=== PATIENT | female | born 1970 | race Caucasian/White ===

== ENCOUNTER 2021-03-11 10:28 | Inpatient (IN) | payer OTHER ==
[~2021-03-11] VITALS: Ht 157.5 cm; Wt 63.4 kg
[2021-03-11] MEDS ORDERED: Ventolin/Prove6.7 GM INH (11:58)
[2021-03-11] MEDS ORDERED: PROMETHAZINE-C473 ML (11:58)
[2021-03-11] MEDS ORDERED: BUPR150ER PO (11:59)
[2021-03-11] MEDS ORDERED: Prednisone10 MG PO (11:59)
[2021-03-11] MEDS ORDERED: LISI20 PO (12:00)
[2021-03-11] MEDS ORDERED: FENOFIBRATE145 MG PO (12:00)
[2021-03-11 12:06] LABS: Hematocrit 41.3 % (33.0-51.0); Hemoglobin 13.9 g/dL (11.5-16.0); Mean Corpuscular HGB 30.8 pg (26.0-34.0); Mean Corpuscular HGB Conc 33.7 g/dL (31.5-36.5); Mean Corpuscular Volume 91 fL (80-100); Mean Platelet Volume 9.5 fL (9.1-12.4); Platelet Count 373 K/mm3 (150-400); RDW Coefficient Variation 13.2 % (11.7-14.2); RDW Standard Deviation 44.4 fL (35.1-46.3); Red Blood Cell Count 4.52 M/mm3 (3.80-5.20); White Blood Cell Count 5.76 K/mm3 (4.00-11.30)
[2021-03-11 12:20] LABS: PCO2 Arterial 35.9 mmHg (35-45); PO2 Arterial 67.3 mmHg (80-100)
[2021-03-11 12:24] LABS: Alanine Aminotransfer (ALT/SGP 155 U/L (12-78); Albumin/Globulin Ratio 0.6 (0.8-1.8); Alk Phos 95 U/L (50-136); Anion Gap 8 mmol/L (6-16); Aspartate Aminotrans (AST/SGOT 143 U/L (12-37); Bilirubin, Total 0.3 mg/dL (0.1-1.0); Blood Urea Nitrogen 20 mg/dL (8-24); Bun/Creatinine Ratio 21.9 (12.0-20.0); CO2, Blood 27 mmol/L (21-32); Calcium, Blood 8.6 mg/dL (8.5-10.1); Chloride, Blood 98 mmol/L (98-108); Creatinine, Blood 0.91 mg/dL (0.40-1.00); Globulin, Blood 4.7 g/dL (2.2-4.0); Glomerular Filtration Rate >60 (60-); Glucose, Blood 116 mg/dL (70-99); Potassium, Blood 4.2 mmol/L (3.5-5.5); Sodium, Blood 133 mmol/L (136-145); Total Protein, Blood 7.7 g/dL (6.4-8.2); Troponin I <0.015 ng/mL (0.000-0.040)
[2021-03-11 12:27] LABS: BASOPHILS PERCENT MAN 0 % (0-2); EOSINOPHILS PERCENT MAN 0 % (0-6); LYMPHOCYTES PERCENT MAN 7 % (21-46); MONOCYTES ABSOLUTE MAN 0.46 K/mm3 (0.16-1.47); MONOCYTES PERCENT MAN 8 % (4-13); NEUTROPHILS ABSOLUTE MAN 4.89 K/mm3 (1.96-9.15); SEG NEUTROPHILS PERCENT MAN 85 % (41-73); TOTAL CELLS COUNTED 100
--- NOTE | 2021-03-11 17:45 | NUR ---
PT ARRIVED IN THE UNIT VIA STRETCHER PT WAS ABLE TO AMBULATE TO TRANSFER INDEPENDENTLY, ON NON REBREATHER MASK UPON ARRIVAL, REPORT RECEIVED FROM GEOVAIN LUJAN. PT ALERT AND ORIENTED X4, VITALS HRR SINUS TACH 110'S, BP SYSTOLIC 130'S, SATS ABOVE 90% ON AIRVO 50L 92%,SOB WITH EXERTION DESATS TO HIGH 80'S RECOVERS QUICK, PT ALSO ADVISED/EDUCATED ABOUT PRONING, PT VERBALIZED UNDERSTANDING. PT USES BEDSIDE COMMODE INDEPENDENTLY WITH NO ISSUES. DENIES ANY PAIN, PT REPORTED DIARRHEA HASNT HAD ANY SINCE TRANSFER, HAS MILD UPSET STOMACH PT REQUESTED SOUP AND CRACKERS FOR DINNER. NO OTHER COMPLAINS REPORTED, DAUGHTER LOYD CALLED AND UPDATED REGARDING PT STATUS. PT ABLE TO MAKE NEEDS KNOWN WILL MONITOR
[2021-03-12 03:51] LABS: BASOPHILS ABSOLUTE AUTO 0.01 K/mm3 (0.00-0.23); BASOPHILS PERCENT AUTO 0 % (0-2); EOSINOPHILS PERCENT AUTO 0 % (0-6); Hematocrit 39.1 % (33.0-51.0); Hemoglobin 12.9 g/dL (11.5-16.0); Mean Corpuscular HGB 30.2 pg (26.0-34.0); Mean Corpuscular Volume 92 fL (80-100); Mean Platelet Volume 9.7 fL (9.1-12.4); Platelet Count 380 K/mm3 (150-400); RDW Coefficient Variation 12.9 % (11.7-14.2); RDW Standard Deviation 43.1 fL (35.1-46.3); Red Blood Cell Count 4.27 M/mm3 (3.80-5.20); White Blood Cell Count 4.93 K/mm3 (4.00-11.30)
[2021-03-12 03:52] LABS: IMMATURE GRAN ABSOLUTE AUTO 0.01 K/mm3 (0.00-0.10); IMMATURE GRAN PERCENT AUTO 0 % (0-1); LYMPHOCYTES ABSOLUTE AUTO 0.61 K/mm3 (0.84-5.20); LYMPHOCYTES PERCENT AUTO 12 % (21-46); MONOCYTES ABSOLUTE AUTO 0.44 K/mm3 (0.16-1.47); MONOCYTES PERCENT AUTO 9 % (4-13); NEUTROPHILS ABSOLUTE AUTO 3.86 K/mm3 (1.96-9.15); NEUTROPHILS PERCENT AUTO 78 % (41-73)
[2021-03-12 04:13] LABS: Anion Gap 10 mmol/L (6-16); Blood Urea Nitrogen 18 mg/dL (8-24); CO2, Blood 25 mmol/L (21-32); Calcium, Blood 8.6 mg/dL (8.5-10.1); Chloride, Blood 98 mmol/L (98-108); Creatinine, Blood 0.78 mg/dL (0.40-1.00); Glomerular Filtration Rate >60 (60-); Glucose, Blood 115 mg/dL (70-99); Potassium, Blood 4.2 mmol/L (3.5-5.5); Sodium, Blood 133 mmol/L (136-145)
--- NOTE | 2021-03-12 06:13 | NUR ---
SHIFT SUMMARY ASSUMED CARE OF PT AT 1900. PT IS A/OX4. HEART SOUNDS REGULAR. PT LUNG SOUNDS ARE ARE VERY TIGHT AT THE BASES WITH CRACKLES AT THE APEX, PT WAS ON AIRVO, 55L/MIN AND WAS TITRATED FROM 90% TO 78%. PT TOLERATES WELL UNTIL SHE HAS COUGHING FITS OR GETS UP TO BSC. PT WILL DESATURATE TO 78% WHEN GOING ONTO BSC. PT SATURATIONS ARE AT96% WHEN PRONING, PT WAS EDUCATED ON PRONING. PT C/O HEARTBURN THIS AM, HOSPITALIST CALLED AT 0600 AND ORDERED TUMS. CALL LIGHT IN REACH, BED IN LOWEST POSITON.
--- NOTE | 2021-03-12 18:31 | NUR ---
PT SUMMARY: PT REMAINS ON AIRVO THROUGHOUT THE SHIFT ON DIFFERENT SETTINGS. PT HAS BEEN DESATTING WITH MINIMAL EXERTION. AROUND LUNCH TIME PT WAS DESATTING TO LOW 80'S SETTING WAS 45L 60% ON AIRVO PT TAKES TIME TO RECOVER WAS PT ON 55L 100% SETTINGS AND PT GOT ANXIOUS WAS TRYING TO PULL OFF NASAL CANNULA. ORDER RECEIVED TO GIVE PT ONE TIME DOSE OF 0.5MG ATIVAN PT WAS THEN ABLE TO CALM DOWN AND RELAX. PT SLEPT FOR MORE THAN 3 HRS. PT THEN CALLED SHE NEEDED TO USE THE BSC PT STARTED HAVING AUDIBLE WHEEZES/STRIDOR PT STATED SHE COULDN'T BREATHE SATS WERE DOWN TO LOW 80'S SETTINGS WAS INCREASED TO 55L 100% RT WAS CALLED AND ASSOCIATE PROFESSOR OF SOCIOLOGY CAME IN TO HELP, THIS RN WAS ABLE TO GIVE ALBUTEROL BREATHING TX THAT WAS THEN EFFECTIVE. PT TOOK AWHILE TO RECOVER ON HER OXYGEN LEVEL. CATHETER WAS ORDERED SO THE PT WONT HAVE TO GET UP OFTEN TO USE BSC TO PREVENT FROM DESATTING. DAUGHTER LOYD WAS CALLED AND MADE AWARE OF THE SITUATION AND FOUND OUT THAT THE PT HAS ACUTE RESPIRATORY AIRWAY DSE THAT INCLUDES ASTHMA WHICH WHAT POSS HAD HAPPENED TO THE PT (ASTHMA ATTACK). RT WAS INFORMED FOR REFERENCE. PT NOW IN BED RESTING, WAS EDUCATED ABOUT IMPORTANCE OF DEEP BREATHING EXERCISES ALBUTEROL TX AT BEDSIDE. WILL MONITOR
--- NOTE | 2021-03-13 06:21 | NUR ---
SHIFT SUMMARY ASSUMED CARE OF PT AT 1900. PT IS A/OX4. HEART SOUNDS REGULAR, LUNG SOUNDS HARE VERY TIGHT AT THE BASES AND CRACKLES T/O. PT WAS ON THE AIRVO AT THE BEGINNING OF SHIFT BUT WAS SWITCHED TO THE CPAP AROUND 0430 DUE TO A COUGHING FIT THAT SHE DID NOT RECOVER FROM. PT TOLERATING CPAP AND REMAINED 95% AND ABOVE THE REST OF THE MORNING. PT WAS GIVEN ATIVAN FOR ANXIETY. CATHETER DRAINING CLEAR YELLOW URINE. CALL LIGHT IN REACH, BED IN LOWEST POSTION.
--- NOTE | 2021-03-13 18:22 | NUR ---
PT SUMMARY: PT REMAINS ON AIRVO 60L 100% ALTERNATING CPAP 16 70% SATTING ABOVE 90%, BP SYSTOLIC 110'S, HR SR/ST 90-110'S, O2 DESATS TO LOW 80'S WITH MINIMAL EXERTION. PT HAS BEEN EXERCISING DEEP BREATHING AND IS ABLE TO MOVE INDEPENDENTLY IN BED. PT REMAINS ON BEDREST, CATHETER DRAINING VIA GRAVITY. COUGH MEDICINES AND ATIVAN GIVEN FOR THE SHIFT AND WAS EFFECTIVE. NO OTHER COMPLAINS REPORTED. BREATHING TX PER RT. PT HAS POOR APPETITE ENSURE GIVEN ON LUNCH TIME. ALERT AND ORIENTED, ABLE TO MAKE NEEDS KNOWN, COMPLIANT WITH CARE. WILL REPORT TO ONCOMING SHIFT
--- NOTE | 2021-03-14 05:41 | NUR ---
SHIFT SUMMARY ASSUMED CARE OF PT AT 1900. PT IS A/OX4. HEART SOUNDS REGULAR, TELE SHOWS SINUS @ 90. LUNG SOUNDS ARE DIMINISHED AT THE BASES WITH CRACKLES T/O. PT USED CPAP MOST OF THE NIGHT. PT WAS MEDICATED WITH ATIVAN FOR AGITATION. PT HAD FREQUENT COUGHING FITS IN WHICH SHE WOULD TAKE OFF HER BIPAP TO COUGH AND REQUEST TO BE ON THE AIRVO. PT SATUTATIONS REMAINED ABOVE 90% BUT DURING HER COUGHING FITS SHE DESATURATES TO 75%.PT CATHETER IS DRAINING CLEAR YELLOW URINE. CALL LIGHT IN REACH, BED IN LOWEST POSITION.
--- NOTE | 2021-03-14 19:24 | NUR ---
SHIFT SUMMARY PT A&Ox4; CALM AND COOPERATIVE WITH CARE. PT RESTING IN BED DURING SHIFT. MOVING IN BED IND. ENCOURAGED PT TO PRONE, MINIMAL PRONING DURING SHIFT. ON CPAP SPO2 >95% CPAP SETTING 12 80% FIO2; PT INTERMITTENTLY USING AIRVO T/O SHIFT ON 60L AND 100%, DESATURATE TO 70-80'S, SLOW RECOVERY. PT DENIES PAIN, NAUSEA AND DIZZINESS. PT RECIEVING DECADRON AND REMDESIVIR. OTHER VSS. NO OTHER ACUTE CHANGES NOTED DURING SHIFT. REPORT GIVEN TO ONCOMING RN.
--- NOTE | 2021-03-15 05:12 | NUR ---
SHIFT SUMMARY ASSUMED CARE OF PT AT 1900. PT IS A/OX4. HEART SOUNDS REGULAR. LUNG SOUNDS HAVE CRACKLES T/O. PT WAS MOSTLY ON AIRVO T/O THE SHIFT UNTIL THIS AM AFTER A COUGHING FIT AND WORE THE CPAP FOR ABOUT AN HOUR. PT PRONED TWICE THE EVENING FOR ABOUT A COUPLE HOURS EACH TIME. PT HAS A NON PRODUCTIVE COUGH MEDICATED PEREMAR. PT HAS A DIANE DRAINING WITH GRAVITY, URINE IS CLEAR AND YELLOW. CALL LIGHT IN REACH, BED IN LOWEST POSTION.
[2021-03-15 10:34] LABS: Base Excess Venous 3.2 mmol/L; Bicarbonate Venous 27.4 mmol/L (24.0-30.0); PCO2 Venous 35.9 mmHg (38-42); PO2 Venous 146 mmHg (38-42); pH Blood Venous 7.48 (7.34-7.37)
--- NOTE | 2021-03-15 18:09 | NUR ---
SHIFT SUMMARY PT A&Ox4, ANXIOUS BUT COOPERATIVE WITH CARE. RESTING IN BED FOR MAJOIRTY OF SHIFT. UP TO CHAIR THIS EVENING. PT ENCOURAGED TO PRONE THIS AM, RESTING SUPINE FOR APPROX 1 HOUR DUIRNG SHIFT. SOB AT REST, INTERMITTENTLY ON AIRVO AT 55L AT 90% FIO2, SPENT MAJOIRTY OF SHIFT ON CPAP 12 FIO2 AT 100%. PT DESATURATES 70-80'S WITH ACTIVITY AND COUGHING EPISODES. SLOW RECOVERY. PT DENIES PAIN, CHEST PAIN, NAUSEA AND DIZZINESS. DIANE PATENT AND DRAINING. OTHER VSS. NO OTHER ACUTE CHANGES NOTED DURING SHIFT. WILL CONTINUE TO MONITOR UNTIL REPORT GIVEN TO ONCOMING RN.
--- NOTE | 2021-03-16 06:05 | NUR ---
SHIFT SUMMARY ASSUMED CARE OF PT AT 1900. HEART SOUNDS REGULAR, TELE SHOWS SINUS TACH @ 107. LUNG SOUNDS HAVE CRACKLES T/O, PT SWITCHED BETWEEN AIRVO AND CPAP T/O THE NIGHT. PT DOES NOT LIKE THE CPAP AND WAS MOSTLY ON THE AIRVO, BUT HAD TO BE PRONING OR ELSE SHE WOULD DESATURATE INTO THE 70'S. PT WILL TAKE OSCAR THE MASK DURING COUGHING FITS AND DESATURATE TO 68%, OR SHE WILL TAKE OF HER AIRVO BEUCAUSE THE AIR IS TO COLD. PT EDUCATED ABOUT HOW THIS IS NOT A SAFE PRACTICE. PT SHOWS SIGNS OF FEELING HOPELESS DUE TO HER FLAT AFFECT. PT ASKED MULTOPL TIMES IF SHE WILL EVERY GET BETTER. PT HAD A DIANE DRAINING WITH GRAVITY. URINE IS CLEAR AND YELLOW. PT WAS MEDICATED FOR COUGH AND WITH ATIVAN FOR HER ANXIETY. CALL LIGHT IN REACH, BED IN LOWEST POSTION.
--- NOTE | 2021-03-16 16:45 | NUR ---
STARTED PRECEDEX DRIP WITH INITIAL DOSE OF 0.4.
--- NOTE | 2021-03-16 17:32 | NUR ---
SHIFT SUMMARY PT A/O X3 AND EXPERIENCES MILD CONFUSION AT TIMES. PT SWITCHED BETWEEN THE AIRVO AND THE CPAP THIS SHIFT AND IT WAS DETERMINED THAT THE AIRVO WAS NOT SUFFICIENT IN MAINTAINING O2 SATURATION LEVELS >90%. ON AIRVO PT WOULD DESAT DOWN TO 68% AT TIMES. IT WAS DETERMINED THAT THE PT IS TO STAY ON CPAP AND MAY POSSIBLY SWITCH TO BIPAP. PT DOES NOT LIKE THE CPAP MASK AND OFTEN WOULD REMOVE IT, RESULTING IN DESATURATION. PT PUT ON A PRECEDEX DRIP FOR SEDATION IN ORDER TO KEEP HER FROM REMOVING HER MASK (SEE EMR). DRIP TITRATED X1 THIS SHIFT (SEE EMR). PT PRONED AFTER RECEIVING SEDATION. VSS. WILL REPORT TO ONCOMING RN.
--- NOTE | 2021-03-17 04:38 | NUR ---
SHIFT SUMMARY PT PRONED AND ON 0.6MCG/KG/HR AT BEGINNING OF SHIFT. APPROPRIATELY SEDATED. ON BIPAP 14/8 90%. LUNG SOUNDS CONTINUE TO BE COARSE T/O. SHIFT PROGRESSED, PT BEGAN TO MOVE IN BED, PULL AT MASK AND AT ONE POINT, UN PRONED HERSELF AND PULLED OFF HER BIPAP. PT HAD BEEN RECEIVING 0.7MCG/KG/HR AND HAD RECEIVED A PRN 1MG ATIVAN DOSE WELL. UPON ARRIVAL TO ROOM, PT SPO2 <75%. WITH THIS EVENT, DR TOÑA TABARES, RECEIVED INSTRUCTION TO INCREASE MAX DOSE FROM 0.7MCGS TO 1.0MCGS. PT IS CURRENTLY ON 0.9MCGS/KG/HR. HR REMAINS 70 T/O ALL TITRATIONS AND MAP >60 WITH MAJORITY OF SBP'S >115. PT HAS BEEN REPOSITIONED PRONE Q2H, ROTATING SIDE PLACEMENT AND PILLOWS. ORAL CARE DIFFICULT TO PROVIDE DUE TO INABILITY TO TAKE MASK OFF FOR ADEQUATE AMOUNT OF TIME BUT ORAL CARE PROVIDED. BED ALARM IN PLACE. REMAINS IN ISOLATION.
--- NOTE | 2021-03-17 07:27 | NUR ---
[place] [facility] Received report from night nurse. Pt is currently resting in bed but per report has been anxious and restless throughout the night. She is currently on Precedex gtt @ 1.0 per order. Her VSS, O2 is currently @ 96% on Bipap @ 100%. RT just assessed her and will keep her settings as is for now. Loja is in place. Call light is in reach.
--- NOTE | 2021-03-17 10:43 | NUR ---
Update Pt continues to rest in bed. She did awake for a short time and became anxious but when this nurse entered the room and redirected her she was able to calm down and fall back to sleep. Her VS remain stable. Precedex is running as ordered and Dr Keen has been updated. PO meds have been held as she cannot tolerate being off the BIPAP as she desaturates. Her O2 sat is currently 93% @ 100% on the BIPAP. Her family was updated this morning.
--- NOTE | 2021-03-17 13:52 | NUR ---
Update This nurse along with the chargeback analyst and RT proned the pt around noon and the pt's O2 sats came up into the low 90's. VSS. About 1345 this nurse received a call from another nurse that the pt's O2 sat's had dropped into the 60's and she was going into the room, per report upon entering the pt's mask had come partially off and was replaced. This nurse along with the chargeback analyst entered the room to assist and the pt's O2 sats started to recover. She was sat up in the bed and her BIPAP mask was adjusted. She is now proned again and her O2 sat is 99%. The charge nurse spoke with DR Keen over the phone who gave a verbal order to increase her precedex to 1.4 mcg. Her RR remains in the high 30's to low 40's. Her family has been updated.
--- NOTE | 2021-03-17 16:23 | NUR ---
Update This nurse was called into the room to find that the pt had pulled her Bipap off again and had desaturated. The mask was replaced and she recovered and is now @ 89% on the bipap. Her Daughter is sitting at the bedside and per Dr Keen bilat soft wrist restraints were placed to protect her lines/Bipap and her airway. Her VSS. She has been NPO throughout the day due to her dependence on the mask. Nutrition consult was called in per Dr Keen to start PPN. The plan is to move the pt to the icu as soon as the room is clean.
--- NOTE | 2021-03-17 16:38 | NUR ---
Update Report has been given to receiving RN in ICU. Her fmaily is aware of the transfer. Her personal belongings will be packed and moved with her to ICU.
--- NOTE | 2021-03-17 18:28 | NUR ---
PT ARRIVED FROM PCU INTERMITTENTLY ALERT, SHE IS AGITATED ATTEMPTING TO PULL OFF BIPAP MASK DESPITE MAITRE D IN PLACE. PT STATED THAT SHE "WANT THIS MASK OFF" PT EDUCATED ABOUT WEARING MASK PT REQUESTED INTUBATION, FAMILY IS AT BEDSIDE AGREES THAT INRUBATION WOULD BE THE BEST COURSE OF ACTION. DR RICKS IS NOTIFIED, RT AND ADDITIONAL STAFF TO ROOM TO PREPARE FOR RSI.
--- NOTE | 2021-03-17 18:48 | NUR ---
INTUBATION AT 184, 8.0 ET TUBE PLACED, 25 AT THE TEETH. PROPOFOL STARTED AT 15MCG/KG/HR AT 184. PT WAS INTUBATED WITH 50MCG OF PROPOFOL AT 183 AND 100MG OF SUCCINACHOLINE, ADDITIONAL 50MCG OF PROPOFOL WAS GIVEN FOR SEDATION AT 184. NS IS INFUSING AT THIS TIME WELL ALONG WITH CLINIMIX AND FAT EMULSION. OG PLACED BY DR RICKS. XRAY HAS ARRIVED AT THIS TIME FOR CONRFIRMATION XRAY.
[2021-03-17 21:29] LABS: PCO2 Arterial 38.8 mmHg (35-45); PO2 Arterial 68.7 mmHg (80-100); pH Blood Arterial 7.39 (7.35-7.45)
--- NOTE | 2021-03-17 23:41 | NUR ---
REASSMENTS PT REMAINS INTUBATED AND SEDATED, PROPOFOL TITRATED TO 60mcg/kg/min FOR VENT TOLERANCE, PRECEDEX @ 1.4mcg/kg/hr, PT NOT RESPONSIVE TO VERBAL STIMULI, BECOMES AGITATED WITH NURSING CARE AND TURNS, GAG AND COUGH REFLEX PRESENT. VENT SET TO AC/VC 16/350 PEEP 18 FiO2 100%, WITH SpO2 90-94%, RESP RATE 20-26 WITH REST, INCREASES TO 30'S WITH NURSING CARE. MONITOR SHOWS SINUS RHYTHM WITH HR 90'S, BP STABLE. OG IN PLACE, CLAMPED. DIANE IN PLACE WITH ADEQUATE URINE OUTPUT.
[2021-03-18 04:10] LABS: BASOPHILS ABSOLUTE AUTO 0.01 K/mm3 (0.00-0.23); BASOPHILS PERCENT AUTO 0 % (0-2); EOSINOPHILS ABSOLUTE AUTO 0.01 K/mm3 (0.00-0.68); EOSINOPHILS PERCENT AUTO 0 % (0-6); Hematocrit 40.9 % (33.0-51.0); Hemoglobin 13.4 g/dL (11.5-16.0); IMMATURE GRAN ABSOLUTE AUTO 0.03 K/mm3 (0.00-0.10); IMMATURE GRAN PERCENT AUTO 0 % (0-1); LYMPHOCYTES ABSOLUTE AUTO 0.29 K/mm3 (0.84-5.20); LYMPHOCYTES PERCENT AUTO 4 % (21-46); MONOCYTES ABSOLUTE AUTO 0.21 K/mm3 (0.16-1.47); MONOCYTES PERCENT AUTO 3 % (4-13); Mean Corpuscular HGB 30.5 pg (26.0-34.0); Mean Corpuscular HGB Conc 32.8 g/dL (31.5-36.5); Mean Corpuscular Volume 93 fL (80-100); Mean Platelet Volume 9.9 fL (9.1-12.4); NEUTROPHILS ABSOLUTE AUTO 6.26 K/mm3 (1.96-9.15); NEUTROPHILS PERCENT AUTO 92 % (41-73); Platelet Count 474 K/mm3 (150-400); RDW Coefficient Variation 12.7 % (11.7-14.2); RDW Standard Deviation 43.8 fL (35.1-46.3); White Blood Cell Count 6.81 K/mm3 (4.00-11.30)
[2021-03-18 04:28] LABS: Alanine Aminotransfer (ALT/SGP 38 U/L (12-78); Albumin/Globulin Ratio 0.4 (0.8-1.8); Alk Phos 71 U/L (50-136); Anion Gap 7 mmol/L (6-16); Aspartate Aminotrans (AST/SGOT 20 U/L (12-37); Bilirubin, Total 0.2 mg/dL (0.1-1.0); Blood Urea Nitrogen 23 mg/dL (8-24); Bun/Creatinine Ratio 37.5 (12.0-20.0); CO2, Blood 25 mmol/L (21-32); Calcium, Blood 8.3 mg/dL (8.5-10.1); Chloride, Blood 106 mmol/L (98-108); Creatinine, Blood 0.61 mg/dL (0.40-1.00); Globulin, Blood 4.9 g/dL (2.2-4.0); Glomerular Filtration Rate >60 (60-); Glucose, Blood 207 mg/dL (70-99); Phosphorus, Blood 4.3 mg/dL (2.5-4.9); Potassium, Blood 5.1 mmol/L (3.5-5.5); Sodium, Blood 138 mmol/L (136-145); Total Protein, Blood 6.9 g/dL (6.4-8.2)
--- NOTE | 2021-03-18 07:15 | NUR ---
Assumed care of pt at 0700 with Carroll LUJAN. Report received from Amna LUJAN.
--- NOTE | 2021-03-18 10:01 | NUR ---
Dr Alex in to see pt. Changed ventilator settings. Settings now ACPC, rate 16, pressure 8, PEEP 15, FiO2 70%. Notified RT.
--- NOTE | 2021-03-18 19:54 | NUR ---
SUMMARY Neuro: Responsive to painful stimulus. Receiving 60 mcg/kg/min propofol. Precedex 1 mcg/kg/hr. Fentanyl 50 mcg/hr. Cough and gag present. Pupils 2 mm, PERRL, sluggish response to light. Resp: Ventilator settings ACPC 16 8/15/ 70% FiO2. Lungs dim t/o. No sputum suctioned from ETT. Cardiac: SR per monitor. BP stable, however low at end of shift. Dr Alex aware. LR bolus given. BP improved. GI: TF - VHP at 10 mL per hour. 30 mL flush Q4H. High residual this AM. TF stopped and restarted again at 1600. ABD moderately distended. Bowel care done today with no positive effect. Plan for sweet potato disintegrator to follow up with bowel care. : Loja catheter in place for strict I&O. Excellent urine output this shift. Skin overall C/D/I. Update given to daughter in law, Amber, by this RN today.
--- NOTE | 2021-03-18 20:00 | NUR ---
[place] OF CARE PT IS INTUBATED AND SEDATED. PROPOFOL @ 60MCG/KG/MIN, PRECEDEX @ 1.0MCG/KG/HR, FENTANYL WALKING DRAGLINE OPERATOR @ 50MCG/HR. PT UNABLE TO REPSOND TO VERBAL COMMANDS, BUT DOES RESPOND TO PAINFUL STIMULI. VENT @ AC/PC 13/03//70%, SATS > 90%. HR IS SINUS TACHY IN 90'S, BP STABLE. PT HAS LOW GRADE TEMP OF 99.5. LUNGS ARE DIM THROUGHOUT. ABDOMEN IS MILDLY DISTENDED, OG WITH TUBE FEED AT GOAL OF 25ML/HR, <5ML RESIDUALS. DIANE PATENT AND DRAINING YELLOW/CLEAR URINE. WILL REVIEW CURRENT ORDERS AND TREAT PRESCRIBED.
--- NOTE | 2021-03-18 21:34 | NUR ---
UPON SUCESSFUL PRONING, RT NOTED TO HEAR POSSIBLE CREPITUS ALONG LEFT SHOULDER BLADE. PALPATED LEFT SHOULDER BLADE AND TRAPEZIUS AND NOTED TO FEEL CREPITUS. CREPITUS ALSO FELT ALONG BILATERAL SUBCLAVIAN REGION. AFTER REVIEWING CHEST XR FROM 03/17/21, SUBCUTANEOUS EMPHYSEMA WAS NOTED ON RIGHT CHEST WALL AND RIGHT SUBCLAVICULAR FOSSA. RT NOTIFIED DR. SALINAS OF FINDINGS AND NO NEW ORDERS GIVEN. WILL CONTINUE TO MONITOR.
--- NOTE | 2021-03-19 02:44 | NUR ---
SPOKE WITH DR. SALINAS REGARDING PATIENT STACKING BREATHS ON VENTILATOR AND LOW TIDAL VOLUME ALARM CONSTANTLY. PT IS CURRENTLY ON PROPOFOL @ 60, PRECEDEX AT 1.4 AND FENTANYL 50MCG/HR. DR. SALINAS GAVE NEW ORDER TO INCREASE FENTANYL [place] TO 75MCG/HR.
[2021-03-19 03:45] LABS: BASOPHILS ABSOLUTE AUTO 0.02 K/mm3 (0.00-0.23); BASOPHILS PERCENT AUTO 0 % (0-2); EOSINOPHILS PERCENT AUTO 0 % (0-6); Hematocrit 37.5 % (33.0-51.0); Hemoglobin 12.2 g/dL (11.5-16.0); IMMATURE GRAN ABSOLUTE AUTO 0.13 K/mm3 (0.00-0.10); IMMATURE GRAN PERCENT AUTO 1 % (0-1); LYMPHOCYTES ABSOLUTE AUTO 0.69 K/mm3 (0.84-5.20); LYMPHOCYTES PERCENT AUTO 4 % (21-46); MONOCYTES ABSOLUTE AUTO 0.82 K/mm3 (0.16-1.47); MONOCYTES PERCENT AUTO 5 % (4-13); Mean Corpuscular HGB 30.5 pg (26.0-34.0); Mean Corpuscular HGB Conc 32.5 g/dL (31.5-36.5); Mean Corpuscular Volume 94 fL (80-100); Mean Platelet Volume 10.3 fL (9.1-12.4); NEUTROPHILS ABSOLUTE AUTO 14.38 K/mm3 (1.96-9.15); NEUTROPHILS PERCENT AUTO 90 % (41-73); Platelet Count 495 K/mm3 (150-400); RDW Coefficient Variation 12.6 % (11.7-14.2); RDW Standard Deviation 43.6 fL (35.1-46.3); White Blood Cell Count 16.04 K/mm3 (4.00-11.30)
[2021-03-19 04:04] LABS: Anion Gap 8 mmol/L (6-16); Blood Urea Nitrogen 26 mg/dL (8-24); Bun/Creatinine Ratio 40.9 (12.0-20.0); CO2, Blood 25 mmol/L (21-32); Chloride, Blood 105 mmol/L (98-108); Creatinine, Blood 0.64 mg/dL (0.40-1.00); Glomerular Filtration Rate >60 (60-); Glucose, Blood 286 mg/dL (70-99); Magnesium, Blood 2.6 mg/dL (1.6-2.4); Phosphorus, Blood 2.8 mg/dL (2.5-4.9); Potassium, Blood 4.3 mmol/L (3.5-5.5); Sodium, Blood 138 mmol/L (136-145)
--- NOTE | 2021-03-19 05:44 | NUR ---
PT REMAINS INTUBATED AND SEDATED AND PRONED. PROPOFOL @ 70MCG/KG/MIN, PRECEDEX @ 1.4 MCG/KG/HR, FENTANYL @ 75MCG/HR. SEDATION INCREASED D/T BREATHING OVER VENT AND DOUBLE STACKING BREATHS. VENT: AC/PC 16/10/15 PEEP, FIO2 60%, SATS >92%. LUNG SOUNDS COARSE/DIMINISHED T/O. MODERATE THICK, CRANDALL SECRETIONS WITH ETT SUCTIONING. PALPABLE CREPITUS T/O BILATERAL SUBCLAVIAN REGION, TRAPEZIUS, AND DOWN ALONG BILATERAL SCAPULA. HR IS ST IN 90-110'S, BP STABLE. TF REMAINS AT GOAL OF 25ML/HR, LAST RESIDUAL <5ML. NO BOWEL MOVEMENT THIS SHIFT. DIANE PATENT AND DRAINING TO GRAVITY, YELLOW/CLEAR URINE, 600ML OUTPUT. WILL GIVE REPORT TO ONCOMING RN.
[2021-03-19 10:32] LABS: Appearance, Urine Clear (Clear); Bilirubin, Urine Neg (Neg); Blood, Urine Neg (Neg); Color, Urine Yellow (P-Yellow); Glucose Qualitative, Urine 4+ (Neg); Ketones, Urine Neg (Neg); Leukocyte Esterase, Urine Neg (Neg); Nitrite, Urine Neg (Neg); Protein, Urine 2+ (Neg); Urobilinogen, Urine NORM (Normal)
[2021-03-19 11:01] LABS: Bacteria Few /hpf; Red Blood Cells, Urine 0-2 /hpf (0-2); Squamous Epithelial Cells Few /hpf (Few); White Blood Cells, Urine 0-2 /hpf (0-5)
--- NOTE | 2021-03-19 15:50 | NUR ---
CARE ASSUMED ASSESSMENTS COMPLETED, PT REMAINS PRONED AND INTUBATED, AC 16, PC 10, FIO2 60%, PEEP 15. LS DIMINISHED, SCANT ETT SECRETIONS. SEDATED WITH PROPOFOL 70MCG, PRECEDEX 1.4MCG, AND FENTANYL 75MCG/HR. NO RESTLESSNESS NOTED, PT DOES NOT TRACK OR FOLLOW DIRECTION AT THIS TIME, DOES COUGH AND GRIMACE TO NOXIOUS STIMULI. SPO2 HIGH 90'S, PEAK PRESSURE HIGH 20'S, Vt 200-300 WITH AN INTERMITTENT LARGE BREATH Vt 900, PATTERN IRREGULAR. HR SINUS, BP STABLE. RESIDUALS MINIMAL, TF INCREASED TO GOAL RATE. ABD MILDLY FIRM WITH HYPOACTIVE BOWEL TONES, AM BOWEL CARE ADMINISTERED, THEN ADDITIONAL BOWEL CARE MEDS GIVEN THIS AFTERNOON, REPOSITIONED TO SUPINE AROUND 1230. PT DOES NOT TOLERATE R SIDE REPOSITION WELL, DESATS TO HIGH 80'S. CURRENTLY ON L SIDE WITH SPO2 91%.
--- NOTE | 2021-03-19 17:29 | NUR ---
UPDATE PT'S BP HAS BECOME HYPOTENSIVE THIS EVENING WITH TACHY HR OF 110-120 SINUS. NOTIFIED, ORDER FOR BOLUS.
--- NOTE | 2021-03-19 18:33 | NUR ---
END OF SHIFT AWARE OF CXR RESULTS, NO NEW ORDERS AT THIS TIME. DRIP RATES UNCHANGED TODAY, VENT AC 16, PC 10, FIO2 60%, PEEP 15. SPO2 98% AT THIS TIME, FIO2 DECREASED TO BACK TO 50%. LS DIMINISHED WITH SCANT ETT SECRETIONS. BP AND HR BOTH IMPROVED AFTER FLUID BOLUS, 149/77, HR 90'S. NO BM THIS SHIFT DESPITE BOWEL CARE MEDS. TF TOLERATED WELL, NO EXCESSIVE RESIDUALS. URINE OUTPUT POOR BUT REMAINS >30ML/HR. DAUGHTER IN LAW UPDATED TWICE TODAY. REPORT.
--- NOTE | 2021-03-19 21:35 | NUR ---
ASSUMPTION OF CARE RECEIVED REPORT FROM TAI HARP @ 1900. PT REMAINS INTUBATED AND SEDATED. PROPOFOL @ 70MCG/KG/MIN, PRECEDEX @ 1.4MCG/HR, FENTANYL @ 75MCG/HR. RESPONSIVE TO PAINFUL STIMULI, UNABLE TO FOLLOW COMMANDS. VENT AT AC/PC 16//15/50%, SATS 90% OR GREATER. OCCASIONAL COUGHING OVER VENT, BUT WITH POSITIONING. PRONED @ 2120, TOLERATED WELL. PT FEBRILE AT 99.4. LUNG SOUNDS COARSE THROUGHOUT WITH PALPABLE CREPITUS BILAT SUBCLAVIAN AND ANTERIOR CHEST, NOTED IN MOST RECENT CHEST XR. SMALL THICK, CRANDALL SECRETIONS WITH ETT SUCTIONING. ABDOMEN IS MODERATELY DISTENDED, TF @ GOAL OF 25ML/HR WITH RESIDUAL OF 30ML. DINAE PATENT, DRAINING TO GRAVITY YELLOW/SHERLEY URINE. HR IS ST IN 90-100'S, BP STABLE. WILL REVIEW CURRENT ORDERS AND TREAT PRESCRIBED.
--- NOTE | 2021-03-20 02:39 | NUR ---
CALL TO DR. RICKS @ 6403 D/T ELEVATED BLOOD PRESSURES IN 170'S/90'S. NEW ORDERS GIVEN FOR PRN HYDRALAZINE AND PRN LABETALOL. HYDRALAZINE GIVEN AND NOTED DECREASE TO 117/61, HR REMAINS IN 110'S.
[2021-03-20 03:52] LABS: BASOPHILS ABSOLUTE AUTO 0.01 K/mm3 (0.00-0.23); BASOPHILS PERCENT AUTO 0 % (0-2); EOSINOPHILS PERCENT AUTO 0 % (0-6); Hematocrit 34.3 % (33.0-51.0); Hemoglobin 11.3 g/dL (11.5-16.0); IMMATURE GRAN ABSOLUTE AUTO 0.18 K/mm3 (0.00-0.10); IMMATURE GRAN PERCENT AUTO 1 % (0-1); LYMPHOCYTES ABSOLUTE AUTO 0.47 K/mm3 (0.84-5.20); LYMPHOCYTES PERCENT AUTO 3 % (21-46); MONOCYTES ABSOLUTE AUTO 0.77 K/mm3 (0.16-1.47); MONOCYTES PERCENT AUTO 5 % (4-13); Mean Corpuscular HGB 30.7 pg (26.0-34.0); Mean Corpuscular HGB Conc 32.9 g/dL (31.5-36.5); Mean Corpuscular Volume 93 fL (80-100); Mean Platelet Volume 10.2 fL (9.1-12.4); NEUTROPHILS PERCENT AUTO 91 % (41-73); Platelet Count 455 K/mm3 (150-400); RDW Coefficient Variation 12.6 % (11.7-14.2); RDW Standard Deviation 43.8 fL (35.1-46.3); Red Blood Cell Count 3.68 M/mm3 (3.80-5.20); White Blood Cell Count 15.23 K/mm3 (4.00-11.30)
[2021-03-20 04:09] LABS: Anion Gap 5 mmol/L (6-16); Blood Urea Nitrogen 19 mg/dL (8-24); Bun/Creatinine Ratio 37.2 (12.0-20.0); CO2, Blood 28 mmol/L (21-32); Calcium, Blood 8.2 mg/dL (8.5-10.1); Chloride, Blood 104 mmol/L (98-108); Creatinine, Blood 0.51 mg/dL (0.40-1.00); Glomerular Filtration Rate >60 (60-); Glucose, Blood 259 mg/dL (70-99); Magnesium, Blood 2.8 mg/dL (1.6-2.4); Potassium, Blood 4.2 mmol/L (3.5-5.5); Sodium, Blood 137 mmol/L (136-145)
--- NOTE | 2021-03-20 06:45 | NUR ---
PT REMAINS INTUBATED AND SEDATED. PROPOFOL @ 70MCG/KG/MIN, PRECEDEX @ 1.4MCG/KG/HR, FENTANYL @ 75 MCG/HR. PT TOLERATING VENT WELL. VENT AT AC/PC 16/10/15/50%, SATS 94%. LUNGS COARSE/DIM THROUGHOUT, SMALL AMOUNT OF SECRETIONS WITH ETT SUCTIONING. CREPITUS UNCHANGED, PALPABLE THROUGHOUT BILATERAL SCAPULA, CHEST WALL, NECK. PT HYPERTENSIVE MID-SHIFT AND GIVEN PRN HYDRALAZINE X1, BP NOW STABLE. HR IS ST IN 100-110'S. TF @ GOAL 25ML/HR, RESIDUALS <5ML. DIANE PATENT DRAINING TO GRAVITY, SHERLEY URINE. MORNING LABS CAME BACK WITH LOW PHOS @ 2.0, K+ WITHIN NORMAL, SODIUM PHOSPHATE ORDERED PER ELECTROLYTE PROTOCOL. WILL GIVE REPORT TO ONCOMING RN.
--- NOTE | 2021-03-20 09:39 | NUR ---
CARE ASSUMED ASSESSMENTS COMPLETED. PT PRONE, INTUBATED/SEDATED. PROPOFOL 70MCG, FENTANYL INCREASED TO 100MCG/HR FOR HTN AND IRREGULAR RESP PATTERN, PRECEDEX 1.4MCG. DOES NOT MOVE EXTREMS, OPEN EYES, TRACK, OR FOLLOW COMMANDS. VENT AC 16, PC 10, PEEP 15, FIO2 50%, LS CLEAR, DIM IN BASES, SMALL AMOUNT WHITE SECRETIONS FROM ETT. IRREGULAR RESPIRATORY PATTERN CONTINUES, PT HAS A FEW SHALLOW BREATHS FOLLOWED BY A LARGE VOLUME BREATH. CREPITUS REMAINS PRESENT AND FEELS WORSE THAN YESTERDAY. HRR 90'S SINUS, BP ELEVATED, MEDICATED PER SEP. NO EDEMA NOTED, PULSES PALPABLE IN ALL EXTREMS, SKIN PWD. ABD DISTENDED, BT PRESENT, BOWEL CARE ADMINISTERED. TF AT GOAL, RESIDUAL 5ML. DIANE PATENT AND DRAINING. AT BEDSIDE TO ASSESS, PLAN TO REPOSITION TO SUPINE AROUND 1200 TODAY.
--- NOTE | 2021-03-20 18:41 | NUR ---
END OF SHIFT FENTANYL GTT INCREASED TO 100MCG/HR FOR VENT ASYNCHRONY, PT ALSO RECEIVED ATIVAN PUSHES PRN FOR TACHYCARDIA AND ASYNCHRONY WITH GOOD RESULTS. LS REMAIN DIMINISHED, MORESO ON R. PNEUMOTHORAX NOTED ON CXR, NO CHANGES MADE TO VENT SETTINGS AT THIS TIME PER DR. LAINEZ, WILL NOT PRONE TONIGHT PER HER WELL. SPO2 93%, RR 21, PEAK PRESSURE 25, RESPIRATORY PATTERN AND Vt UNCHANGED. SMALL CRANDALL SECRETIONS FROM ETT. MONITORING FOR SPO2 DESAT AND PEAK PRESSURE INCREASE ORDERED, BOTH STABLE TODAY. CREPITUS REMAINS PRESENT. HR 90-120 SINUS, BP STABLE AFTER HYDRALAZINE X1 THIS AM. NO BM TODAY, SCHEDULED BOWEL CARE AND MOM ADMINISTERED. TF RATE UNCHANGED, SCANT RESIDUALS. >1L URINE OUTPUT TODAY, TRACE EDEMA NOTED TO ETREMS X4. BEDBATH COMPLETED, FAMILY UPDATED BY MYSELF AND DR. LAINEZ.
--- NOTE | 2021-03-20 21:56 | NUR ---
ASSUMPTION OF CARE RECEVIED REPORT FROM TAI HARP @ 1900. PT REMAINS INTUBATED AND SEDATED. PROPOFOL @ 70,CG/KG/MIN, PRECEDEX @ 1.4MCG/KG/HR, FENTANYL @ 100MCG/HR. PT RESPONDS TO PAINFUL STIMULI ONLY. VENT UNCHANGED AT AC 16, PC 10, PEEP 15, FIO2 50%. SATS >92%. LUNG SOUNDS COARSE AND DIMINISHED THROUGHOUT. CHEST XR FROM THIS MORINING SHOWED SMALL PNEUMOTHORAX ON RIGHT, PALPABLE CREPITUS REMAINS UNCHANGED. WILL MONITOR PEAK PRESSURES AND SPO2 DESATS ORDERED. HR SINUS TACHY IN 100'S, BP STABLE IN 110'S/60-70'S. TF, VHP @ GOAL OF 25ML/HR, 20ML RESIDUAL. ABDOMEN IS MODERATELY DISTENDED, NO BOWEL MOVEMENT TODAY. DIANE IS PATENT DRAINING YELLOW/GREENISH URINE. DAUGHTER DAREK UPDATED THIS EVENING. WILL CONTINUE TO MONITOR AND TREAT PRESCRIBED.
[2021-03-21 04:27] LABS: BASOPHILS ABSOLUTE AUTO 0.01 K/mm3 (0.00-0.23); BASOPHILS PERCENT AUTO 0 % (0-2); EOSINOPHILS PERCENT AUTO 0 % (0-6); Hematocrit 33.9 % (33.0-51.0); Hemoglobin 10.9 g/dL (11.5-16.0); IMMATURE GRAN ABSOLUTE AUTO 0.16 K/mm3 (0.00-0.10); IMMATURE GRAN PERCENT AUTO 1 % (0-1); LYMPHOCYTES ABSOLUTE AUTO 0.34 K/mm3 (0.84-5.20); LYMPHOCYTES PERCENT AUTO 2 % (21-46); MONOCYTES ABSOLUTE AUTO 0.64 K/mm3 (0.16-1.47); MONOCYTES PERCENT AUTO 4 % (4-13); Mean Corpuscular HGB 30.2 pg (26.0-34.0); Mean Corpuscular HGB Conc 32.2 g/dL (31.5-36.5); Mean Corpuscular Volume 94 fL (80-100); Mean Platelet Volume 10.5 fL (9.1-12.4); NEUTROPHILS ABSOLUTE AUTO 13.31 K/mm3 (1.96-9.15); NEUTROPHILS PERCENT AUTO 92 % (41-73); Platelet Count 444 K/mm3 (150-400); Red Blood Cell Count 3.61 M/mm3 (3.80-5.20); White Blood Cell Count 14.46 K/mm3 (4.00-11.30)
[2021-03-21 04:43] LABS: PCO2 Arterial 44.5 mmHg (35-45); PO2 Arterial 69.4 mmHg (80-100); pH Blood Arterial 7.46 (7.35-7.45)
[2021-03-21 04:54] LABS: Alanine Aminotransfer (ALT/SGP 29 U/L (12-78); Albumin, Blood 1.7 g/dL (3.4-5.0); Albumin/Globulin Ratio 0.4 (0.8-1.8); Alk Phos 62 U/L (50-136); Anion Gap 5 mmol/L (6-16); Aspartate Aminotrans (AST/SGOT 18 U/L (12-37); Bilirubin, Total 0.2 mg/dL (0.1-1.0); Blood Urea Nitrogen 21 mg/dL (8-24); Bun/Creatinine Ratio 42.9 (12.0-20.0); CO2, Blood 29 mmol/L (21-32); Calcium, Blood 8.3 mg/dL (8.5-10.1); Chloride, Blood 104 mmol/L (98-108); Creatinine, Blood 0.49 mg/dL (0.40-1.00); Globulin, Blood 4.3 g/dL (2.2-4.0); Glomerular Filtration Rate >60 (60-); Glucose, Blood 257 mg/dL (70-99); Potassium, Blood 4.8 mmol/L (3.5-5.5); Sodium, Blood 138 mmol/L (136-145)
--- NOTE | 2021-03-21 06:20 | NUR ---
PT REMAINS INTUBATED AND SEDATED. SEDATION RATES UNCHANGED FROM INITIAL ASSESSMENT. VENT SETTING UNCHANGED. PEAK PRESSURES REMAINED IN 20-30'S AND SATS 94-95%. CREPITUS CONTINUES IN NECK, CHEST, BILAT SHOULDERS AND DOWN INTO RIGHT FOREARM. HR IN 100'S, INCREASED WITH ALBUTEROL TX. BP REMAINED STABLE, NO PRN HYDRALAZINE OR LABETALOL GIVEN. FEBRILE WITH LOW GRADE TEMP, TMAX 99.5. TUBE FEED REMAINS AT GOAL OF 25ML/HR, RESIDUALS <75. DIANE PATENT DRAINING YELLOW/GREENISH URINE, OUTPUT OF 550ML. DAUGHTER LOYD UPDATED THIS MORNING. WILL GIVE REPORT TO ONCOMING RN.
--- NOTE | 2021-03-21 09:57 | NUR ---
[place] of Care: Care assumed at 0700hr. Patient intubated and sedated. Propofol gtt at 70mcg/kg/min, precedex at 1.4mcg/kg/hr, and fentanyl gtt at 100mcg/hr. Patient responding to noxious stimuli but not following any commands. Vent to PC 16/10/15/50%, tolerating vent without difficulty, spO2-92-95%. BP and HR stable. Lung sounds clear throughout but dim in right side and bases. Known small pneumothorax noted on yesterday's chest x-ray. Patient presents with crepitus to bilateral upper chest and shoulders, trachea is mid-line. Consulted with Dr. Alex this morning, informed pneumothorax not worsening on this mornings x-ray, and no need to place chest tube at this time. Bilateral Power-glides patent and intact. Loja cath patent and intact, draining clear yellow urine. Will continue to monitor.
--- NOTE | 2021-03-21 18:25 | NUR ---
Shift Summary: No significant changes throughout shift. Remains intubated and sedated with propofol, precedex and fentanyl. Vent remains on PC of 16/10, PEEP decreased to 12 approx 1200hr, FiO2 remains 50%, SpO2 90-94%. No worsening crepitus to neck and upper chest (see assumption note), trachea remains mid-line. Bilateral power-glides remain patent and intact. Loja cath remains patent and intact, 970ml of clear yellow urine this shift. Spoke with Dr. Alex, no plan to prone patient tonight as PEEP has been decreased. Continues to tolerate TF at goal without difficulty. Will continue to monitor until report to NOC shift RN.
[2021-03-22 04:16] LABS: BASOPHILS ABSOLUTE AUTO 0.02 K/mm3 (0.00-0.23); BASOPHILS PERCENT AUTO 0 % (0-2); EOSINOPHILS ABSOLUTE AUTO 0.01 K/mm3 (0.00-0.68); EOSINOPHILS PERCENT AUTO 0 % (0-6); Hematocrit 34.9 % (33.0-51.0); Hemoglobin 11.1 g/dL (11.5-16.0); IMMATURE GRAN ABSOLUTE AUTO 0.33 K/mm3 (0.00-0.10); IMMATURE GRAN PERCENT AUTO 2 % (0-1); LYMPHOCYTES ABSOLUTE AUTO 0.38 K/mm3 (0.84-5.20); LYMPHOCYTES PERCENT AUTO 3 % (21-46); MONOCYTES ABSOLUTE AUTO 0.59 K/mm3 (0.16-1.47); MONOCYTES PERCENT AUTO 4 % (4-13); Mean Corpuscular HGB 30.4 pg (26.0-34.0); Mean Corpuscular HGB Conc 31.8 g/dL (31.5-36.5); Mean Corpuscular Volume 96 fL (80-100); Mean Platelet Volume 10.8 fL (9.1-12.4); NEUTROPHILS PERCENT AUTO 91 % (41-73); Platelet Count 418 K/mm3 (150-400); RDW Standard Deviation 46.2 fL (35.1-46.3); Red Blood Cell Count 3.65 M/mm3 (3.80-5.20); White Blood Cell Count 14.53 K/mm3 (4.00-11.30)
[2021-03-22 04:31] LABS: Anion Gap 5 mmol/L (6-16); Blood Urea Nitrogen 28 mg/dL (8-24); Bun/Creatinine Ratio 62.2 (12.0-20.0); CO2, Blood 30 mmol/L (21-32); Calcium, Blood 8.3 mg/dL (8.5-10.1); Chloride, Blood 104 mmol/L (98-108); Creatinine, Blood 0.45 mg/dL (0.40-1.00); Glomerular Filtration Rate >60 (60-); Glucose, Blood 269 mg/dL (70-99); Magnesium, Blood 2.6 mg/dL (1.6-2.4); Phosphorus, Blood 3.1 mg/dL (2.5-4.9); Potassium, Blood 4.5 mmol/L (3.5-5.5); Sodium, Blood 139 mmol/L (136-145)
--- NOTE | 2021-03-22 06:29 | NUR ---
No unusual events during the night. Sedated under Propofol and Precedex, as document. Open eyes to touch, not following commands. pupils are equal and reactive. In addition, receiving analgesia under Fentanyl. Respiratory supported by mechanical ventilation. No secretions from ETT.Lungs sounds are diminished. Hemodynamic hypertesive. Received Hydralazine PRN as documented. Pulse in normal sinus rhythm, around 95 bpm. Urine via Loja catheter, normal output. No bowel movement during the shift. No calls asking about her well being, during the night.
--- NOTE | 2021-03-22 07:15 | NUR ---
Assumed care of pt at 0715 with Chantel RN and Marcelino RN. Neuro: Sedated with propofol at 75 mcg/kg/min, precedex at 1.4 mcg/kg/hr, fentanyl 100 mcg/hr. Responsive to painful stimulus. 3 mm pupils, PERRL. Musc.Skel: Limited due to intubation and sedation. Pt not proned. HOB 30 degrees or higher. Reposition Q2H. Resp: 8.0 cm ETT, 25 cm ATT. Vent settings ACPC 16/ 10/12 / 50%. SpO2 90% or greater. No sputum suctioned from ETT. Crepitus noted to bilat clavicle, shoulder area, left of mediastinum. Cardiac: ST, rate 105. Distant heart sounds. Trace edema BUE and BLE. 2+ radial, pedal, and posttibial pulses. Capillary refill less than 3 seconds BUE and BLE. GI: OG tube with feed and flush per orders. 110 mL residual measured. Hypoactive BT. : Loja catheter in place, patent and draining clear, yellow urine. Skin: Overall C/D/I Psych: Unable to assess due to intubation and sedation. Update given to daughter in law, Amber.
--- NOTE | 2021-03-22 18:53 | NUR ---
SUMMARY Neuro: Sedated with propofol at 75 mcg/kg/min, precedex at 1.4 mcg/kg/hr, fentanyl 100 mcg/hr. Responsive to painful stimulus. 3 mm pupils, PERRL. Musc.Skel: Limited due to intubation and sedation. Pt supine. HOB 30 degrees or higher. Reposition Q2H. Resp: 8.0 cm ETT, 25 cm ATT. Vent settings ACPC 16/ 10/12 / 50%. SpO2 90% or greater. No sputum suctioned from ETT. Crepitus noted to bilat clavicle, bilat shoulder area, left of mediastinum. Cardiac: SR, rate 80s. Distant heart sounds. Trace edema BUE and BLE. 2+ radial, pedal, and posttibial pulses. Capillary refill less than 3 seconds BUE and BLE. GI: OG tube with feed and flush per orders held. 600 mL residual measured at most recent check. Reglan given. Bowel care given. Will reassess. Hypoactive BT. : Loja catheter in place, patent and draining clear, yellow urine. Skin: Overall C/D/I Psych: Unable to assess due to intubation and sedation. Update given to daughter in law, Amber x2. Update given to Daughter, Milana.
[2021-03-23 04:25] LABS: BASOPHILS ABSOLUTE AUTO 0.03 K/mm3 (0.00-0.23); BASOPHILS PERCENT AUTO 0 % (0-2); EOSINOPHILS ABSOLUTE AUTO 0.01 K/mm3 (0.00-0.68); EOSINOPHILS PERCENT AUTO 0 % (0-6); IMMATURE GRAN ABSOLUTE AUTO 0.28 K/mm3 (0.00-0.10); IMMATURE GRAN PERCENT AUTO 2 % (0-1); LYMPHOCYTES ABSOLUTE AUTO 0.48 K/mm3 (0.84-5.20); LYMPHOCYTES PERCENT AUTO 3 % (21-46); MONOCYTES PERCENT AUTO 5 % (4-13); Mean Corpuscular HGB 30.6 pg (26.0-34.0); Mean Corpuscular HGB Conc 32.4 g/dL (31.5-36.5); Mean Corpuscular Volume 94 fL (80-100); Mean Platelet Volume 10.7 fL (9.1-12.4); NEUTROPHILS ABSOLUTE AUTO 12.77 K/mm3 (1.96-9.15); NEUTROPHILS PERCENT AUTO 89 % (41-73); Platelet Count 422 K/mm3 (150-400); RDW Standard Deviation 45.1 fL (35.1-46.3); White Blood Cell Count 14.27 K/mm3 (4.00-11.30)
[2021-03-23 04:30] LABS: Anion Gap 6 mmol/L (6-16); Blood Urea Nitrogen 28 mg/dL (8-24); Bun/Creatinine Ratio 69.1 (12.0-20.0); CO2, Blood 30 mmol/L (21-32); Calcium, Blood 7.7 mg/dL (8.5-10.1); Chloride, Blood 105 mmol/L (98-108); Creatinine, Blood 0.41 mg/dL (0.40-1.00); Glomerular Filtration Rate >60 (60-); Glucose, Blood 183 mg/dL (70-99); Potassium, Blood 4.3 mmol/L (3.5-5.5); Sodium, Blood 141 mmol/L (136-145)
--- NOTE | 2021-03-23 06:37 | NUR ---
No change in the patient's condition during the night. Sedated under Propofol and receiving analgesia under Fentanyl. Open eyes to light stimuli. Pupils equal and reactive. Not following commands. Respiratory supported by mechanical ventilation. No changes to the vent settings during the night. Hemodynamic stable w/o support. Pulse in normal sinus rhythm, around 85 bpm. Urine via goodman catheter, normal output. Nutrition via tube feed. 260ml residual. No bowel movement this shift. No calls asking about her well being, during the night.
--- NOTE | 2021-03-23 07:15 | NUR ---
Assumed care of pt at 0700 with Giovanna RN and Marcelino RN. Report received from Jocy LUJAN. Neuro: Sedated with propofol at 75 mcg/kg/min, precedex at 1.4 mcg/kg/hr, fentanyl 100 mcg/hr. Responsive to painful stimulus. 3 mm pupils, PERRL. Musc.Skel: Limited due to intubation and sedation. Pt supine. HOB 30 degrees or higher. Reposition Q2H. Resp: 8.0 cm ETT, 25 cm ATT. Vent settings ACPC 16/ 10/12 / 50%. SpO2 90% or greater. No sputum suctioned from ETT. Crepitus noted to bilat clavicle, bilat shoulder area, left of mediastinum. Cardiac: SR, rate 77. Distant heart sounds. Trace edema BUE and BLE. 2+ radial, pedal, and posttibial pulses. Capillary refill less than 3 seconds BUE and BLE. GI: OG tube with feed and flush per orders. 350 mL residual measured at most recent check. Reglan given. Bowel care given. Will reassess. Hypoactive BT. 250 mL reinstilled. : Loja catheter in place, patent and draining clear, yellow urine. Skin: Overall C/D/I Psych: Unable to assess due to intubation and sedation. No family updated yet this shift.
--- NOTE | 2021-03-23 18:24 | NUR ---
SUMMARY Neuro: Sedated with propofol at 70 mcg/kg/min, precedex at 1.4 mcg/kg/hr, fentanyl 100 mcg/hr. Responsive to painful stimulus. 3 mm pupils, PERRL. Today when propofol lowered to 60 mcg/kg/min, pt able to follow commands. Musc.Skel: Limited due to intubation and sedation. Pt supine. HOB 30 degrees or higher. Reposition Q2H. Resp: 8.0 cm ETT, 25 cm ATT. Vent settings ACPC / 14/12 / 50%. SpO2 90% or greater. No sputum suctioned from ETT. Crepitus noted to bilat clavicle, bilat shoulder area, left of mediastinum. Pt on PS for about 7 or 8 hours today. Cardiac: SR, rate 77. Distant heart sounds. Trace edema BUE and BLE. 2+ radial, pedal, and posttibial pulses. Capillary refill less than 3 seconds BUE and BLE. GI: OG tube with feed and flush per orders. Stable residual measured at most recent check. Reglan given. Bowel care given. Will reassess. Hypoactive BT. : Loja catheter in place, patent and draining clear, yellow urine. Skin: Overall C/D/I Psych: Unable to assess due to intubation and sedation. Sister in law updated this shift.
--- NOTE | 2021-03-23 20:00 | NUR ---
ASSUMED CARE OF PT AT 1915. REPORT RECEIVED. PT PRESENTS IN BED INTUBATED. TOLERATING THIS WELL. MAINTAINS SATURATIONS > 90 PERCENT. FENTANYL DRIP AT 100 MCG'S/HOUR. PRECEDEX AT 1.4 MCG'S/KG/HOUR, PROPOFOL AT 70 MCG'S/KG/MIN. PT DOES OPEN EYES TO TACTILE STIMULI. WILL REVIEW CHART AND PLAN OF CARE FOR THIS PT.
--- NOTE | 2021-03-24 03:00 | NUR ---
PT HAS DROP IN HER BLOOD PRESSURES THIS MORNING. HAVE DECREASED PROPOFOL DRIP TO 60 MCG'S/KG/MIN WELL DECREASING HER PRECEDEX FROM 1.4MCG'S TO 1.2 MCG'S/KG/HOUR. THIS WAS INNEFECTIVE IN IMPROVING HER BLOOD PRESSURES. DID GIVE 250 ML BOLUS WHICH IMPROVED BLOOD PRESSURES.
[2021-03-24 04:47] LABS: BASOPHILS ABSOLUTE AUTO 0.03 K/mm3 (0.00-0.23); BASOPHILS PERCENT AUTO 0 % (0-2); EOSINOPHILS ABSOLUTE AUTO 0.05 K/mm3 (0.00-0.68); EOSINOPHILS PERCENT AUTO 0 % (0-6); Hematocrit 33.1 % (33.0-51.0); Hemoglobin 10.6 g/dL (11.5-16.0); IMMATURE GRAN ABSOLUTE AUTO 0.26 K/mm3 (0.00-0.10); IMMATURE GRAN PERCENT AUTO 2 % (0-1); LYMPHOCYTES ABSOLUTE AUTO 0.75 K/mm3 (0.84-5.20); LYMPHOCYTES PERCENT AUTO 5 % (21-46); MONOCYTES ABSOLUTE AUTO 0.77 K/mm3 (0.16-1.47); MONOCYTES PERCENT AUTO 5 % (4-13); Mean Corpuscular Volume 94 fL (80-100); Mean Platelet Volume 10.6 fL (9.1-12.4); NEUTROPHILS ABSOLUTE AUTO 14.14 K/mm3 (1.96-9.15); NEUTROPHILS PERCENT AUTO 88 % (41-73); Platelet Count 397 K/mm3 (150-400); RDW Coefficient Variation 13.2 % (11.7-14.2); RDW Standard Deviation 45.2 fL (35.1-46.3); Red Blood Cell Count 3.53 M/mm3 (3.80-5.20)
[2021-03-24 05:14] LABS: Albumin, Blood 1.7 g/dL (3.4-5.0); Anion Gap 5 mmol/L (6-16); Blood Urea Nitrogen 34 mg/dL (8-24); Bun/Creatinine Ratio 71.6 (12.0-20.0); CO2, Blood 29 mmol/L (21-32); Calcium, Blood 7.8 mg/dL (8.5-10.1); Chloride, Blood 108 mmol/L (98-108); Creatinine, Blood 0.48 mg/dL (0.40-1.00); Glomerular Filtration Rate >60 (60-); Glucose, Blood 167 mg/dL (70-99); Magnesium, Blood 2.6 mg/dL (1.6-2.4); Phosphorus, Blood 3.4 mg/dL (2.5-4.9); Potassium, Blood 4.1 mmol/L (3.5-5.5); Sodium, Blood 142 mmol/L (136-145)
[2021-03-24 05:42] LABS: PCO2 Arterial 36.6 mmHg (35-45); PO2 Arterial 55.3 mmHg (80-100); pH Blood Arterial 7.53 (7.35-7.45)
--- NOTE | 2021-03-24 06:30 | NUR ---
PT HAS EPISODE WHEREAS HER BLOOD PRESSURES BECOME HYPOTENSIVE. GAVE 250 ML NORMAL SALINE BOLUS WHICH WAS VERY AFFECTIVE. PT HAS FULL BEDBATH DONE THIS NIGHT. TOLERATED WELL. HAS BEEN INCONTINENT TO STOOL TWICE THIS NIGHT. TOLERATES TUBE FEEDING WELL WITH MAX RESIDUAL OF 150 ML. THIS WAS REINFUSED. WILL CONTINUE TO MONITOR PT, AND WILL REPORT OFF TO ONCOMING RN.
--- NOTE | 2021-03-24 07:15 | NUR ---
Assumed care of pt at 0700 with Carroll LUJAN and Marcelino LUJAN. Report received from Bonifacio LUJAN. Pump rates on flow sheet.
--- NOTE | 2021-03-24 10:04 | NUR ---
REPOSITIONED TO SUPINE. PER RN, PT DESATS WHEN ON R SIDE.
--- NOTE | 2021-03-24 13:30 | NUR ---
HYPOTENTION W/ INCREASE OF PROPOFOL TO 75MCG/KG/MIN. SBP 79MMHG. CHANGED PROPOFOL TO 65MCG AND SBP INCREASED TO >90.
--- NOTE | 2021-03-24 14:00 | NUR ---
SYSTOLIC BP 73MMHG. MD AT BEDSIDE. PROPOFOL DECREASED TO 50MC/KG/MIN. BP 99/64 NOW. SUCTIONED, MINIMAL THIN CLEAR SECRETIONS. MD CHANGED PT BACK TO TO AC-PS FROM SPONTANEOUS. TAI OLIVERA NOTIFIED.
--- NOTE | 2021-03-24 15:00 | NUR ---
500 mL bolus NS given for low BP. Pt responded well.
--- NOTE | 2021-03-24 18:28 | NUR ---
SUMMARY Neuro: Responsive to painful stimulus. Propofol 60 mcg/kg/min. Precedex 1 mcg/kg/hr. Fentanyl 100 mcg/hr. Moves all extremities. Musculoskeletal: Limited due to intubation and sedation. Reposition Q2H. Resp: ETT 25 cm at the teeth. Lungs dim t/o. Vent settings ACPC / / / 50%. SpO2 90% or greater Cardiac: ST per monitor. BP stable. Trace edema BUE and BLE. Capillary refill less than 3 seconds, BUE and BLE GI: No BM this shift. Hypoactive BT. Most recent residual measured 150 mL, reinstilled, will continue to closely reassess. OG tube with feed and flush per orders. : Loja catheter patent and draining clear yellow urine. Skin: Overall C/D/I Psych: JENNIFER. Daughter in law, Amber, updated 3 times this shift.
--- NOTE | 2021-03-24 19:30 | NUR ---
Assumed care. Report recieved from divina LUJAN. Pt continues on ventilator, settings: AC/PC 16, PI 14, peep 10, Fi02 50%. OG tube in place, Vital High Protein running at 25 ml/hr w/30 ml flush every 4. Powerglide in BRIAN, IV access in r/arm. Pump settings are as follows: Propofol at 70 mcg/kg/min, precedex at 1 mcg/kg/hr, fentany caustic strength inspector at 100 mcg/hr, NS at 10 ml/hr. Loja catheter in place, draining mc/yellow urine. Soft wrist restraints in place bilaterally. No acute needs noted at this time, see shift assessment for details.
[2021-03-25 03:59] LABS: Base Excess Venous 4.1 mmol/L; Bicarbonate Venous 27.5 mmol/L (24.0-30.0); PCO2 Venous 41.7 mmHg (38-42); PO2 Venous 48.8 mmHg (38-42); pH Blood Venous 7.44 (7.34-7.37)
[2021-03-25 04:05] LABS: BASOPHILS ABSOLUTE AUTO 0.03 K/mm3 (0.00-0.23); BASOPHILS PERCENT AUTO 0 % (0-2); EOSINOPHILS PERCENT AUTO 1 % (0-6); Hematocrit 32.5 % (33.0-51.0); Hemoglobin 10.3 g/dL (11.5-16.0); IMMATURE GRAN PERCENT AUTO 3 % (0-1); LYMPHOCYTES ABSOLUTE AUTO 0.63 K/mm3 (0.84-5.20); LYMPHOCYTES PERCENT AUTO 4 % (21-46); MONOCYTES ABSOLUTE AUTO 0.82 K/mm3 (0.16-1.47); MONOCYTES PERCENT AUTO 5 % (4-13); Mean Corpuscular HGB 30.2 pg (26.0-34.0); Mean Corpuscular HGB Conc 31.7 g/dL (31.5-36.5); Mean Corpuscular Volume 95 fL (80-100); NEUTROPHILS ABSOLUTE AUTO 15.98 K/mm3 (1.96-9.15); NEUTROPHILS PERCENT AUTO 88 % (41-73); Platelet Count 412 K/mm3 (150-400); RDW Coefficient Variation 13.3 % (11.7-14.2); RDW Standard Deviation 46.5 fL (35.1-46.3); Red Blood Cell Count 3.41 M/mm3 (3.80-5.20); White Blood Cell Count 18.06 K/mm3 (4.00-11.30)
[2021-03-25 04:19] LABS: Anion Gap 4 mmol/L (6-16); Blood Urea Nitrogen 30 mg/dL (8-24); Bun/Creatinine Ratio 65.6 (12.0-20.0); CO2, Blood 28 mmol/L (21-32); Calcium, Blood 8.5 mg/dL (8.5-10.1); Chloride, Blood 108 mmol/L (98-108); Creatinine, Blood 0.46 mg/dL (0.40-1.00); Glomerular Filtration Rate >60 (60-); Glucose, Blood 173 mg/dL (70-99); Magnesium, Blood 2.3 mg/dL (1.6-2.4); Phosphorus, Blood 3.3 mg/dL (2.5-4.9); Potassium, Blood 4.4 mmol/L (3.5-5.5); Sodium, Blood 140 mmol/L (136-145)
--- NOTE | 2021-03-25 06:36 | NUR ---
Shift summary. Pt continues on ventilator, settings: AC/PC 16, Pi 14, PEEP 10, Fi02 50%. OG tube in place, Vital High Protein running at 25 ml/hr with 30 ml flush/[address] BRIAN and ANDREZ, pump settings are as follows: Propofol 60 mcg/kg/min, precedex 0.9 mcg/kg/hr, Fentanyl LEGAL EXAMINER 100 mcg/hr, NS 10 ml/hr. Loja catheter in place, draining mc/yellow urine. Pt has extensive areas of SC emphysema througout neck, upper chest, upper back and both arms, AM chest xray completed. See shift assessment for further details. Will continue to monitor and report to oncoming RN.
--- NOTE | 2021-03-25 09:02 | NUR ---
CARE OF PT ASSUMED AT 0700. STAT CT ORDERED THIS AM, MOVEMAN AND RT BROUGHT PT DOWN AND BACK. PT SEDATED ON PROPOFOL AT 60MCG, PRECEDEX AT 0.9MCG, AND FENT AT 100MCG/HR. DR RICKS AT BEDSIDE. PT HAS SQ AIR/CREPITUS T/O ENTIRE CHEST, NECK, JAW, UPPER ABD, AND ARMS. AC16/PC:12,70/FIO2 50%, PEEP 10. PT WELL SEDATED. AFTER CT REVIEWED, SEDATED MIGHT BE TITRATED DOWN, DR RICKS WILL LET US KNOW. SATS 93%. HEART RATE 90'S, SINUS. BP SLIGHTLY HYPOTENSIVE W MAPS >65. LUNGS COARSE W GOOD AIR MOVEMENT T/O ALL ADAMS. PUPILS PINPOINT. ETT 24 AT LIP. CENTERED.
--- NOTE | 2021-03-25 10:13 | NUR ---
PT'S DAUGHTER LOYD GIVEN UPDATE
--- NOTE | 2021-03-25 16:14 | NUR ---
RESIDUAL 200CC. PT REFED 200, LIQUACEL HELD IT IS A HIGH VOLUME MED,
--- NOTE | 2021-03-25 18:53 | NUR ---
PROPOFOL, PRECEDEX, AND FENT GTT'S REMAIN UNCHANGED. PT'S VSS T/O SHIFT. SATS 96% ON 50%FIO2. SUBQ AIR/CREPITUS UNCHANGED FROM THIS AM. PLAN FOR TOMORROW IS TO DECREASE SEDATION TOLERATED W POSSIBLE WEAN. PICC LINE WILL NEED TO BE PLACED WELL. PT'S DAUGHTER GIVEN UPDATE X2.
--- NOTE | 2021-03-25 19:10 | NUR ---
Assumed care. Report recieved by Karrie LUJAN. Pt continues on ventilator, settings: AC/PC 16, Pi 12, Peep 10, Fi02 50%. OG tube in place, Vital High Protein tube feed running at 10 ml/hr with 30ml flush/[address] ANDREZ and BRIAN. IV pump settings: Precedex running at 0.9 mcg/kg/hr, Propofol running at 60 mcg/kg/min, Fentanyl EXTENSION WORK INSTRUCTOR running at 100 mcg/hr, NS at 10 ml/hr. Loja catheter in place, draining clear/yellow urine. Pt resting quietly at this time, no acute needs noted. Will continue to monitor.
[2021-03-26 05:16] LABS: BASOPHILS ABSOLUTE AUTO 0.04 K/mm3 (0.00-0.23); BASOPHILS PERCENT AUTO 0 % (0-2); EOSINOPHILS ABSOLUTE AUTO 0.08 K/mm3 (0.00-0.68); EOSINOPHILS PERCENT AUTO 1 % (0-6); Hematocrit 32.5 % (33.0-51.0); Hemoglobin 10.5 g/dL (11.5-16.0); IMMATURE GRAN ABSOLUTE AUTO 0.76 K/mm3 (0.00-0.10); IMMATURE GRAN PERCENT AUTO 5 % (0-1); LYMPHOCYTES ABSOLUTE AUTO 0.72 K/mm3 (0.84-5.20); LYMPHOCYTES PERCENT AUTO 5 % (21-46); MONOCYTES ABSOLUTE AUTO 0.86 K/mm3 (0.16-1.47); MONOCYTES PERCENT AUTO 6 % (4-13); Mean Corpuscular HGB 30.5 pg (26.0-34.0); Mean Corpuscular HGB Conc 32.3 g/dL (31.5-36.5); Mean Corpuscular Volume 95 fL (80-100); Mean Platelet Volume 11.1 fL (9.1-12.4); NEUTROPHILS ABSOLUTE AUTO 12.57 K/mm3 (1.96-9.15); NEUTROPHILS PERCENT AUTO 84 % (41-73); Platelet Count 401 K/mm3 (150-400); RDW Coefficient Variation 13.1 % (11.7-14.2); Red Blood Cell Count 3.44 M/mm3 (3.80-5.20); White Blood Cell Count 15.03 K/mm3 (4.00-11.30)
[2021-03-26 05:49] LABS: Anion Gap 3 mmol/L (6-16); Blood Urea Nitrogen 25 mg/dL (8-24); Bun/Creatinine Ratio 49.8 (12.0-20.0); CO2, Blood 31 mmol/L (21-32); Calcium, Blood 8.4 mg/dL (8.5-10.1); Chloride, Blood 106 mmol/L (98-108); Glomerular Filtration Rate >60 (60-); Glucose, Blood 138 mg/dL (70-99); Magnesium, Blood 2.4 mg/dL (1.6-2.4); Phosphorus, Blood 3.8 mg/dL (2.5-4.9); Potassium, Blood 4.4 mmol/L (3.5-5.5); Sodium, Blood 140 mmol/L (136-145)
--- NOTE | 2021-03-26 06:36 | NUR ---
Shift summary. Pt continues on ventilator, settings: Spontaneous, pressure support 7/5, 50% Fi02, rr 17-25, sp02 >90%. IV pump settings: Precedex 1.4 mcg/kg/hr, propofol 40 mcg/kg/min, fentanyl DIETARY INTERNSHIP 100 mcg/hr, NS 10 ml/hr. Propofol reduced during shift, pt more awake and following directions, able nod yes or no to questions. Patient passed SBT this am, tidal volumes > 300, rr < 25. Vital signs stable, see flowsheet. Pt blood pressure labile throughout shift, pt given labetolol and hydraulazine prior to SBT for hypertension with good effect. Tube feed running at 10 ml/hr with 30ml flush/4 hours. Loja catheter in place, draining clear/yellow urine. Will continue to monitor and report off to oncoming RN.
--- NOTE | 2021-03-26 08:35 | NUR ---
CARE ASSUMED OF PT AT 0700. PT AWAKE ON VENT W PROPOFOL AT 40MCG, PRECEDEX AT 1.4MCG, AND FENT AT 100,CG/HR. PT ABLE TO NOD HEAD APPROPRIATELY AND FOLLOW SIMPLE COMMANDS. PT ON SPONT BREATHING TRIAL. PS7, PEEP 5, FIO2 AT 50%. SATS 96-100%. PROPOFOL TURNED OFF AT 0830. PT WIDE AWAKE, ANXIOUS BUT ABLE TO BE CALMED. DR RICKS UPDATED AND IS REVIEWING CHART. PT MAY BE EXTUBATED THIS AM. RT NOTIFIED.
--- NOTE | 2021-03-26 08:56 | NUR ---
PT VERY ANXIOUS. HEART RATE 151, RESP HIGH 30'S, SATS DOWN TO 92%, PT NODS HEAD TO FEELING SOB. PROPOFOL RESTARTED. DR RICKS NOTIFIED. WE WILL NOT EXTUBATED AT THIS POINT.
--- NOTE | 2021-03-26 09:13 | NUR ---
FINE PINPOINT SLIGHTLY RAISED RED RASH NOTED TO FACE, FLUSHING T/O NOTED. SUB Q AIR/CREPITUS UNVHANGED FROM YESTERDAY, REMAINS TO JAW, NECK, CHEST, UPPER ABD, AND ARMS.
--- NOTE | 2021-03-26 11:55 | NUR ---
TYLENOL GIVEN FOR TEMP 101.0 RECTAL TEMP PROBE PLACED, READING 100.8 PT TOLERATING TUBE FEEDS AT 25CC/HR. PT PLACED BACK ON AC SETTINGS SHORTLY AFTER SEDATION RESTARTED FOR MV ALARM LESS THAN 9. AC12/PC8/FIO2 45%, PEEP 8. SATS 97%.
--- NOTE | 2021-03-26 14:36 | NUR ---
P1 INCREASED FROM 8 TO 10 FOR LOW MIN VENT PER RT.
--- NOTE | 2021-03-26 15:05 | NUR ---
PRESIDEX CHANGE: PATIENTS BLOOD PRESSURE READINGS TRENDING LOWER, MAPS STILL GREATER THAN 60, HOWEVER, VENT SETTINGS WERE INCREASED EARLIER. PATIENT DURING ORAL CARE, HAD MINIMAL TO NO RESISTANCE, SOME SLIGHT GRIMACING. DROPPED THE MCG TO .09, WILL CONTINUE TO MONITOR PATIENT RT AND CHARGE AWARE.
--- NOTE | 2021-03-26 19:10 | NUR ---
Assumed care. Report received by Karrie LUJAN. Pt continues on ventilator, settings: AC/PC 12, Pi 12, Peep 8, Fi02 45%. OG tube in place, Vital high protein running at 25 ml/hr. Powerglides in place, ANDREZ and BRIAN, IV pump settings as follows: Propofol 60 mcg/kg/min, precedex 1.2 mcg/kg/hr, Fentanyl TUBE DRAW HELPER 100 mcg/hr, NS 10 ml/hr. Rectal thermometer in place, temp 100.0. Loja catheter in place, draining mc/yellow urine. No acute needs noted at this time, will continue to monitor.
--- NOTE | 2021-03-26 20:30 | NUR ---
PT ON SPONT THIS AM FOR ~4HRS, SEDATION RESTARTED FOR HIGH ANXIETY DESPITE PRECEDEX BEING AT 1.4MCG. PT RETURNED TO AC SETTINGS AFTER PROPOFOL RESTARTED FOR LOW MIN VOLUMES. TMAX 101.0, TYLENOL GIVEN JUST ONCE THIS AM. RECTAL TEMP PROBE IN PLACE. THICK YELLOW SPUTUM SAMPLE SENT. BP LABILE. WHEN MORE AWAKE PT IS HYPERTENSIVE W WELL SEDATED PT HYPOTENSIVE. PT BECOMES TOO ANXIOUS WHEN SEDATION IS LIGHTENED (HIGH RESP W VENT ALARMS) CURRENTLY TITRATING PRECEDEX AND PROP TO KEEP PT WELL SEDATED AND KEEP MAP >65. PT MAY REQUIRE FLUID BOLUS. DR RICKS AWARE OF LOWER BP'S. PT'S DAUGHTER CALLED THIS AND THIS EVENING TO GIVE UPDATES. PT HAS PIOTR TUBE FEEDS TODAY AT GOAL RATE W LOW RESIDUALS.
[2021-03-27 05:30] LABS: BASOPHILS ABSOLUTE AUTO 0.03 K/mm3 (0.00-0.23); BASOPHILS PERCENT AUTO 0 % (0-2); EOSINOPHILS ABSOLUTE AUTO 0.11 K/mm3 (0.00-0.68); EOSINOPHILS PERCENT AUTO 1 % (0-6); Hematocrit 30.4 % (33.0-51.0); Hemoglobin 9.7 g/dL (11.5-16.0); IMMATURE GRAN PERCENT AUTO 3 % (0-1); LYMPHOCYTES PERCENT AUTO 7 % (21-46); MONOCYTES ABSOLUTE AUTO 0.76 K/mm3 (0.16-1.47); MONOCYTES PERCENT AUTO 6 % (4-13); Mean Corpuscular HGB Conc 31.9 g/dL (31.5-36.5); Mean Corpuscular Volume 94 fL (80-100); Mean Platelet Volume 10.4 fL (9.1-12.4); NEUTROPHILS ABSOLUTE AUTO 10.95 K/mm3 (1.96-9.15); NEUTROPHILS PERCENT AUTO 83 % (41-73); Platelet Count 305 K/mm3 (150-400); RDW Standard Deviation 44.4 fL (35.1-46.3); Red Blood Cell Count 3.23 M/mm3 (3.80-5.20); White Blood Cell Count 13.15 K/mm3 (4.00-11.30)
[2021-03-27 05:46] LABS: Anion Gap 4 mmol/L (6-16); Blood Urea Nitrogen 28 mg/dL (8-24); Bun/Creatinine Ratio 49.5 (12.0-20.0); CO2, Blood 29 mmol/L (21-32); Calcium, Blood 7.6 mg/dL (8.5-10.1); Chloride, Blood 107 mmol/L (98-108); Creatinine, Blood 0.57 mg/dL (0.40-1.00); Glomerular Filtration Rate >60 (60-); Glucose, Blood 168 mg/dL (70-99); Magnesium, Blood 2.2 mg/dL (1.6-2.4); Phosphorus, Blood 4.1 mg/dL (2.5-4.9); Potassium, Blood 4.3 mmol/L (3.5-5.5); Sodium, Blood 140 mmol/L (136-145)
--- NOTE | 2021-03-27 07:15 | NUR ---
Shift summary. Pt continues on ventilator, settings: PC spont, Pi 12, peep 8, Fi02 40%. Pump settings as follows: Precedex 1.4 mcg/kg/hr, propofol 45 mcg/kg/min, fentanyl YOUTH ACCOMMODATION SUPPORT WORKER 100 mcg/hr, NS 10 ml/hr. OG tube in place, vital high protein running at 25 ml/hr. Loja catheter in place, draining clear/yellow urine. Pt blood pressure remained labile throughout shift, see shift assessment for details. Report given to oncoming RN.
--- NOTE | 2021-03-27 13:14 | NUR ---
REASSESSMENT PT REMAINS INTUBATED AND SEDATED. DURING HER WEAN THIS MORNING SHE STARTED TO DROP HER VOLUMES AND THEN GOT AGITATED TO THE POINT SHE YANKED HER HEAD SO HARD THE ETT DISCONNECTED FROM THE VENTILATOR. AT THAT POINT DR. LAINEZ GAVE ORDERS TO INCREASE HER SEDATION AND SWITCHED PT BACK TO AC MODE. LUNGS ARE COARSE. SIT IN THE LOW 100S, BP STABLE. TOLERATING TUBE FEED. DIANE DRAINING CL YELLOW URINE. CONTINUING TO MONITOR.
--- NOTE | 2021-03-27 15:39 | NUR ---
Review of EMR and update obtained from ICU staff. Pt's anxiety/agitation is interfering with weaning trials the past two days. Currently receiving tx for anxiety and hold on weaning trial for now.
--- NOTE | 2021-03-27 18:19 | NUR ---
SHIFT SUMMARY PT REMAINS INTUBATED AND SEDATED. LUNGS ARE CLEAR. CREPITUS REMAINS OVER CHEST, RA AND OVER SHOULDER ONTO HER UPPER BACK. SINUS TACH IN THE LOW 100S, BP STABLE. DIANE WITH CL YELLOW URINE. CONTINUING TO MONITOR.
--- NOTE | 2021-03-28 07:00 | NUR ---
PATIENT INTUBATED AND SEDATED WITH PRECEDEX 1.4MCG, PROPOFOL 65MCG, AND FENTANYL 100MCG/HR. AWAKENS TO STIMULI, REACHING TO ETT WITH BOTH HANDS AND GOOD COUGH AND GAG WHEN AWAKE. ETT IN PLACE WITH VENT PC 12/8 FIO2 TITRATED DURING THE NIGHT NOW 50% WHEN LAYING ON HER LEFT SIDE FIO2 UP TO 90% LUNG SOUNDS CONTINUE TO BE COARSE T/O WITH SMALL AMT OF WHITE SPUTUM. CREPITUS CONTINUES TO CHEST AND DOWN BOTH ARMS. OG REMAINS IN PLACE WITH HIGH RESIDUALS > 200 CC REGLAN IV GIVEN ONCE DURING THE NIGHT. BILAT WRIST RESTRAINTS CONTINUE DUE TO RISK OF SELF EXTUBATION DUE TO UNPREDICTABLE SEDATION AND BEHAVIOR
[2021-03-28 07:46] LABS: BASOPHILS ABSOLUTE AUTO 0.02 K/mm3 (0.00-0.23); BASOPHILS PERCENT AUTO 0 % (0-2); EOSINOPHILS ABSOLUTE AUTO 0.09 K/mm3 (0.00-0.68); EOSINOPHILS PERCENT AUTO 1 % (0-6); Hematocrit 31.9 % (33.0-51.0); Hemoglobin 10.2 g/dL (11.5-16.0); IMMATURE GRAN PERCENT AUTO 2 % (0-1); LYMPHOCYTES ABSOLUTE AUTO 0.87 K/mm3 (0.84-5.20); LYMPHOCYTES PERCENT AUTO 7 % (21-46); MONOCYTES ABSOLUTE AUTO 0.62 K/mm3 (0.16-1.47); MONOCYTES PERCENT AUTO 5 % (4-13); Mean Corpuscular Volume 94 fL (80-100); Mean Platelet Volume 10.4 fL (9.1-12.4); NEUTROPHILS ABSOLUTE AUTO 10.51 K/mm3 (1.96-9.15); NEUTROPHILS PERCENT AUTO 85 % (41-73); Platelet Count 298 K/mm3 (150-400); RDW Coefficient Variation 12.9 % (11.7-14.2); RDW Standard Deviation 43.9 fL (35.1-46.3); White Blood Cell Count 12.41 K/mm3 (4.00-11.30)
[2021-03-28 08:05] LABS: Albumin, Blood 1.9 g/dL (3.4-5.0); Anion Gap 5 mmol/L (6-16); Blood Urea Nitrogen 22 mg/dL (8-24); Bun/Creatinine Ratio 51.4 (12.0-20.0); CO2, Blood 30 mmol/L (21-32); Calcium, Blood 8.4 mg/dL (8.5-10.1); Chloride, Blood 106 mmol/L (98-108); Creatinine, Blood 0.43 mg/dL (0.40-1.00); Glomerular Filtration Rate >60 (60-); Glucose, Blood 193 mg/dL (70-99); Magnesium, Blood 2.2 mg/dL (1.6-2.4); Phosphorus, Blood 3.9 mg/dL (2.5-4.9); Potassium, Blood 4.5 mmol/L (3.5-5.5); Sodium, Blood 141 mmol/L (136-145)
--- NOTE | 2021-03-28 17:32 | NUR ---
SHIFT SUMMARY PT REMAINS INTUBATED AND SEDATED. PT HAD TROUBLE WITH DESATURATING WITH TURNS AND REQUIRING ABOUT 10 MINUTES OF 100% fio2 TO RECOVER. WITH THE LAST TURN PT WAS MEDICATED WITH ATIVAN BECAUSE SHE WAS STACKING HER BREATHS ON THE VENTILATOR AND THEN PRE OXYGENATED WITH 100% FIO2 AND SHE DID NOT DESATURATE WITH THAT TURN. LUNGS ARE CLEAR, CREPITUS UNCHANGED. SR/ST WITH RATE IN THE 90S TO LOW 100S, BPS TABLE. ABD SOFT, TOELRATING TUBE FEED. PT HAD 300ML RESIDUAL TODAY, BUT IT IS BILIOUS IN COLOR. REGLAN GIVEN ONCE TODAY. FAMILY UPDATED BY DR. LAINEZ WELL NRUSING STAFF.
--- NOTE | 2021-03-29 01:54 | NUR ---
ASSUMPTION OF CARE RECEIVED REPORT FROM TAI MEAD @ 0636. PT INTUBATED AND SEDATED. PROPOFOL @ 65MCG/KG/MIN, PRECEDEX @ 1.4MCG/KG/HR, FENTANYL CUSTOMS INSPECTOR 100MCG/HR. PT RESPONDS TO NOXIOUS STIMULI. VENT PC: 12/, PEEP 8, [id number]%, SATS 64%. SCANT SECRETIONS FROM ETT SUCTIONING. LUNGS CLEAR/DIMINISHED THROUGHOUT. CREPITUS CONTINUES IN NECK, CHEST, AND DOWN BILATERAL ARMS. ST IN 90'S, BP STABLE, TRACE EDEMA T/O. RESIDUAL OF 380ML, BILIOUS. TF @ 20ML/HR. DIANE PATENT, DRAINING TO GRAVITY, CLEAR YELLOW URINE. WILL REVIEW ORDERS AND TREAT PRESCRIBED
[2021-03-29 04:12] LABS: BASOPHILS ABSOLUTE AUTO 0.03 K/mm3 (0.00-0.23); BASOPHILS PERCENT AUTO 0 % (0-2); EOSINOPHILS PERCENT AUTO 1 % (0-6); Hematocrit 30.9 % (33.0-51.0); Hemoglobin 10.1 g/dL (11.5-16.0); IMMATURE GRAN ABSOLUTE AUTO 0.38 K/mm3 (0.00-0.10); IMMATURE GRAN PERCENT AUTO 3 % (0-1); LYMPHOCYTES PERCENT AUTO 9 % (21-46); MONOCYTES ABSOLUTE AUTO 0.91 K/mm3 (0.16-1.47); MONOCYTES PERCENT AUTO 6 % (4-13); Mean Corpuscular HGB 30.9 pg (26.0-34.0); Mean Corpuscular HGB Conc 32.7 g/dL (31.5-36.5); Mean Corpuscular Volume 95 fL (80-100); Mean Platelet Volume 10.6 fL (9.1-12.4); NEUTROPHILS ABSOLUTE AUTO 11.46 K/mm3 (1.96-9.15); NEUTROPHILS PERCENT AUTO 80 % (41-73); Platelet Count 290 K/mm3 (150-400); RDW Standard Deviation 44.4 fL (35.1-46.3); Red Blood Cell Count 3.27 M/mm3 (3.80-5.20); White Blood Cell Count 14.28 K/mm3 (4.00-11.30)
[2021-03-29 04:27] LABS: Anion Gap 5 mmol/L (6-16); Blood Urea Nitrogen 25 mg/dL (8-24); CO2, Blood 30 mmol/L (21-32); Calcium, Blood 8.1 mg/dL (8.5-10.1); Chloride, Blood 105 mmol/L (98-108); Creatinine, Blood 0.46 mg/dL (0.40-1.00); Glomerular Filtration Rate >60 (60-); Glucose, Blood 142 mg/dL (70-99); Magnesium, Blood 2.1 mg/dL (1.6-2.4); Phosphorus, Blood 3.5 mg/dL (2.5-4.9); Potassium, Blood 4.3 mmol/L (3.5-5.5); Sodium, Blood 140 mmol/L (136-145)
--- NOTE | 2021-03-29 07:09 | NUR ---
PT REMAINS INTUBATED AND SEDATED. CONTINUES TO GRIMACE WITH ORAL CARE AND REPOSITIONING. SEDATION LOWERED D/T SOFT BLOOD PRESSURES. PRN ATIVAN AND XANAX GIVEN SEDATION ADJUNCT ONCE PRECEDEX LOWERED. SR IN 80'S, BP STABLE-MAP >65. LEVOPHED AVAILABLE IF NEEDED. VENT PC: 07/07, PEEP 8, FI02 60%, SATS REMAINED >94%. LUNGS CLEAR/DIM T/O. CREPITUS CONTINUES IN NECK, SHOULDERS, AND DOWN ARMS, RIGHT> LEFT. RESIDUALS 340ML THIS AM, PRN REGLAN GIVEN X2 DURING SHIFT. TEMP DIANE DRAINING TO GRAVITY, YELLOW CLEAR URINE WITH GOOD OUTPUT. PT HAS LOW GRADE TEMP, TMAX 99.5. BED BATH COMPLETE. WILL GIVE REPORT TO ONCOMING RN.
--- NOTE | 2021-03-29 08:50 | NUR ---
CARE OF PT ASSUMED AT 0700. PT SEDATED ON PROPOFOL AT 60MCG, PRECEDEX AT 0.7, FENT AT 100MCG/HR FOR PIOTR. OF MECH VENT. PT ATTEMPTS TO OPEN EYES TO VOICE, COUGHS AND GRIMACES W CARE. PT HYPOTENSIVE W MAPS >65, OCC AROUND 60. LEVOPHED AVAILABLE IF NEEDED. WILL ATTEMPT TO DECREASE SEDATION TODAY W POSSIBLE WEAN IF OKAY W DR LAINEZ. PT CON TO HAVE HIGH RESIDUALS, REGLAN GIVEN X2 LAST NIGHT. PT DOES HAVE GOOD BT'S. 250CC RESIDUAL. TUBE FEEDS PLACED ON HOLD.
--- NOTE | 2021-03-29 12:59 | NUR ---
PT WIDE AWAKE IN ROOM. PROPOFOL DECREASED TO 20MCG. PER DR LAINEZ, WILL ATTEMPT WEAN, RT NOTIFIED.
--- NOTE | 2021-03-29 13:11 | NUR ---
RT PLACED PT ON SPONT W PS 8.
--- NOTE | 2021-03-29 16:11 | NUR ---
PT SLEEPING, DIFFICULT TO AROUSE COMPARED TO EARLIER IN SHIFT. MAP LESS THAN 60. PRECEDEX DECREASED TO 0.3MCG, PROPOFOL PLACED ON STANDBY. PT IS STILL TOLERATING WEAN.
--- NOTE | 2021-03-29 18:35 | NUR ---
PT STILL TOLERATING WEAN. PROPOFOL RESTRATED AT 20MCG, PRECEDEX UP TO 0.7MCG TO HELP W ANXIETY. HEART RATE 100-140 DEPENDING ON AWAKENESS AND ANXIETY. WHEN SLEEPING PT HYPOTENSIVE, WHEN AWAKE PT TENDS TO BE NORMOTENSIVE TO HYPERTENSIVE. SATS 97% ON 60% FIO2. PT'S DAUGHTER LOYD UPDATED TODAY X2. PT TO BACK ON AC SETTINGS WHEN AND IF SHE TIRES TONIGHT.
--- NOTE | 2021-03-29 21:38 | NUR ---
ASSUMPTION OF CARE RECEIVED REPORT FROM TAI ELAM @ 7793. PT REMAINS INTUBATED AND SEDATED. WAS INITIALLY ON SPONTANEOUS AND TOLERATING WELL. VENT CHANGED BACK TO PRESSURE SUPPORT AROUND 2029, AC 12, PC 10 PEEP 8 FI02 60%, SATS 95%. PT ASYNCHRONOUS WITH VENT ONCE CHANGED BACK AND PRN ATIVAN GIVEN. GRIMACING WITH ORAL CARE, UNABLE TO FOLLOW COMMANDS, BUT WAS MOVING ARMS AND LEGS SPONTANEOUSLY. PROPOFOL DECREASED TO 50MCG/KG/MIN DUE TO SOFT PRESSURES IN 70'S/50'S. SINUS RHYTHM TO SINUS TACH 80-110'S. LUNGS CLEAR AND DIMINISHED T/O, SCANT SECRETIONS IN ETT. CREPITUS CONITNUES IN NECK, CHEST, AND DOWN ARMS, RIGHT > LEFT. OG WITH TF AT 20ML/HR, 150ML RESIDUAL. PRN REGLAN GIVEN. ABDOMEN MILDLY DISTENDED AND SOFT. DIANE PATENT, CLEAR YELLOW URINE. WILL REVIEW ORDERS AND TREAT PRESCRIBED.
--- NOTE | 2021-03-29 22:08 | NUR ---
PT HAD MULTIPLE HYPOTENSIVE PRESSURES IN 70/50'S. PROPOFOL LOWERED TO 50MCG/KG/MIN AND HYPOTENSION CONTINUED. LOWERED TO 30MCG/KG/MIN UNTIL MAP >65. RETURNED PROPOFOL TO 40MCG/KG/MIN FOR VENT COMPLIANCE.
--- NOTE | 2021-03-29 22:49 | NUR ---
LEVOPHED STARTED AT 2232 DUE TO CONSISTENT HYPOTENSIVE PRESSURES IN 70/50'S MAP <60. TITRATED TO 1MCG/KG/MIN AND INCREASED [id number] TO 65MCG/KG/MIN D/T VENT ASYNCHRONY. BP IS CURRENTLY 131/80, MAP 95, SPO2 98%.
--- NOTE | 2021-03-29 23:57 | NUR ---
RESIDUALS OF 340ML, REFED, TUBE FEED PLACED ON HOLD
--- NOTE | 2021-03-30 04:14 | NUR ---
RT PLACED ON SPONTANEOUS WITH PRESSURE SUPPORT OF 8. PROPOFOL AT 20, PRECEDEX AT 0.7, FENTANYL 100.
[2021-03-30 04:17] LABS: PO2 Arterial 62.5 mmHg (80-100); pH Blood Arterial 7.48 (7.35-7.45)
[2021-03-30 04:57] LABS: BASOPHILS ABSOLUTE AUTO 0.04 K/mm3 (0.00-0.23); BASOPHILS PERCENT AUTO 0 % (0-2); EOSINOPHILS ABSOLUTE AUTO 0.07 K/mm3 (0.00-0.68); EOSINOPHILS PERCENT AUTO 0 % (0-6); Hemoglobin 11.5 g/dL (11.5-16.0); IMMATURE GRAN ABSOLUTE AUTO 0.37 K/mm3 (0.00-0.10); IMMATURE GRAN PERCENT AUTO 2 % (0-1); LYMPHOCYTES ABSOLUTE AUTO 1.67 K/mm3 (0.84-5.20); LYMPHOCYTES PERCENT AUTO 11 % (21-46); MONOCYTES ABSOLUTE AUTO 0.64 K/mm3 (0.16-1.47); MONOCYTES PERCENT AUTO 4 % (4-13); Mean Corpuscular HGB 30.1 pg (26.0-34.0); Mean Corpuscular HGB Conc 31.9 g/dL (31.5-36.5); Mean Corpuscular Volume 94 fL (80-100); Mean Platelet Volume 10.7 fL (9.1-12.4); NEUTROPHILS ABSOLUTE AUTO 13.03 K/mm3 (1.96-9.15); NEUTROPHILS PERCENT AUTO 82 % (41-73); Platelet Count 300 K/mm3 (150-400); RDW Coefficient Variation 13.3 % (11.7-14.2); RDW Standard Deviation 45.1 fL (35.1-46.3); Red Blood Cell Count 3.82 M/mm3 (3.80-5.20); White Blood Cell Count 15.82 K/mm3 (4.00-11.30)
[2021-03-30 05:20] LABS: Alanine Aminotransfer (ALT/SGP 42 U/L (12-78); Albumin, Blood 2.2 g/dL (3.4-5.0); Albumin/Globulin Ratio 0.5 (0.8-1.8); Alk Phos 86 U/L (50-136); Anion Gap 7 mmol/L (6-16); Aspartate Aminotrans (AST/SGOT 17 U/L (12-37); Bilirubin, Total 0.2 mg/dL (0.1-1.0); Blood Urea Nitrogen 28 mg/dL (8-24); Bun/Creatinine Ratio 58.5 (12.0-20.0); CO2, Blood 29 mmol/L (21-32); Calcium, Blood 8.9 mg/dL (8.5-10.1); Chloride, Blood 103 mmol/L (98-108); Creatinine, Blood 0.48 mg/dL (0.40-1.00); Globulin, Blood 4.5 g/dL (2.2-4.0); Glomerular Filtration Rate >60 (60-); Glucose, Blood 204 mg/dL (70-99); Potassium, Blood 4.4 mmol/L (3.5-5.5); Sodium, Blood 139 mmol/L (136-145); Total Protein, Blood 6.7 g/dL (6.4-8.2)
--- NOTE | 2021-03-30 06:32 | NUR ---
PT TOLERATING SPONTANEOUS, BUT VERY AROUSABLE. ABLE TO OPEN EYES AND NOD HEAD IN RESPONSE TO QUESTIONS. PROPOFOL @ 20MCG/KG/MIN, PRECEDEX 1MCG/KG/HR AND FENTANYL AT 100MCG/HR. PRN ATIVAN AND XANAX GIVEN TO HELP WITH SEDATION WHILE ON SPONTANEOUS. VENT: SPONT. 05/05 FI02 60%, SATTING 97-98% CREPITUS CONTINUES THE SAME. SCANT SECRETIONS IN ETT. LUNGS CLEAR/DIM. ST IN 110-120'S, BP STABLE, LEVOPHED OFF. NO BOWEL MOVEMENT. RESIDUALS 300MLS, TF REMAINS OFF. PT FEBRILE, TMAX 99.6. DIANE PATENT, YELLOW URINE. WILL GIVE REPORT TO ONCOMING RN.
--- NOTE | 2021-03-30 07:49 | NUR ---
2 SETS OF BLOOD CULTURES OBTAINED, ONCE FROM EACH POWERGLIDE.
--- NOTE | 2021-03-30 08:44 | NUR ---
CARE ASSUMED OF PT AT 0700. PT SEDATED ON PROPOFOL AT 20MCG, PRECEDEX AT 1.2MCG, DECREASED TO 1MCG AND FENT AT 100MCG/HR. PT MOVES EXT/ARMS BUT IS NOT FOLLOWING COMMANDS AT THIS TIME. WILL CONT TO DECREASE SED TOLERATED. PT ON SPONT BREATHING TRIAL, PS 8, FIO2 55%, PEEP 8. DR LAINEZ AT BEDSIDE. UA AND SPUTUM SENT.
[2021-03-30 08:54] LABS: Source, Urine Catheter
[2021-03-30 09:09] LABS: Appearance, Urine Clear (Clear); Bilirubin, Urine Neg (Neg); Blood, Urine Neg (Neg); Color, Urine Yellow (P-Yellow); Glucose Qualitative, Urine Neg (Neg); Ketones, Urine Neg (Neg); Leukocyte Esterase, Urine Neg (Neg); Nitrite, Urine Neg (Neg); Protein, Urine Neg (Neg); Specific Gravity, Urine 1.015 (1.003-1.022); Urobilinogen, Urine NORM (Normal)
--- NOTE | 2021-03-30 11:33 | NUR ---
PT MORE AWAKE NOW, ABLE TO FOLLOW SIMPLE COMMANDS. PROPOFOL AT 20MCG. PRECEDEX AT 1MCG, FENT [id number]. PT CONTINUES TO TOLERATE WEANING/SPONT MODE.
--- NOTE | 2021-03-30 16:39 | NUR ---
PT DANGLES AT SIDE OF BED W PT ASSIST. PT ABLE TO FOLLOW A FEW SIMPLE COMMANDS. PROFOUNDLY WEAK OVERALL. POOR CONTROL OVER MUSCLES, MOSTLY GROSS MOTOR MOVEMENT. THERAPY STOPPED WHEN HEART REACHED 150, PT BECAME VERY HYPERTENSIVE, RESP INCREASED TO HIGH 40'S, W LARGE TV'S >1000. HEART RATE STRATING TO DROP NOW THAT PT RESTING BACK IN BED. SATS NEVER DROPPED BELOW 90%.
--- NOTE | 2021-03-30 18:56 | NUR ---
DR LAINEZ IN TO SEE PT AROUND 1830 AND PLACED PT BACK ON PREVIOUS SETTINGS. AC12/PC10/45%/PEEP8. PT RESTING CALMLY IN BED.
--- NOTE | 2021-03-30 19:45 | NUR ---
Assumed care. Report recieved by Karrie LUJAN. Pt continues on ventilator, settings: AC/PC 12, Pi 12, peep 8, Fi02 45%. OG tube in place, vital high protein running at goal rate 20 ml/hr. Powerglide in ANDREZ, PICC line in BRIAN. 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 Loja catheter in place, draining clear/yellow urine, rectal thermometer in place. SCDs in place, bilateral calves. No acute needs noted at this time, will continue to monitor.
[2021-03-31 04:17] LABS: BASOPHILS ABSOLUTE AUTO 0.03 K/mm3 (0.00-0.23); BASOPHILS PERCENT AUTO 0 % (0-2); EOSINOPHILS ABSOLUTE AUTO 0.03 K/mm3 (0.00-0.68); EOSINOPHILS PERCENT AUTO 0 % (0-6); Hematocrit 31.3 % (33.0-51.0); Hemoglobin 10.2 g/dL (11.5-16.0); IMMATURE GRAN PERCENT AUTO 2 % (0-1); LYMPHOCYTES ABSOLUTE AUTO 1.16 K/mm3 (0.84-5.20); LYMPHOCYTES PERCENT AUTO 7 % (21-46); MONOCYTES ABSOLUTE AUTO 0.64 K/mm3 (0.16-1.47); MONOCYTES PERCENT AUTO 4 % (4-13); Mean Corpuscular HGB 30.5 pg (26.0-34.0); Mean Corpuscular HGB Conc 32.6 g/dL (31.5-36.5); Mean Corpuscular Volume 94 fL (80-100); Mean Platelet Volume 10.4 fL (9.1-12.4); NEUTROPHILS ABSOLUTE AUTO 13.42 K/mm3 (1.96-9.15); NEUTROPHILS PERCENT AUTO 86 % (41-73); Platelet Count 297 K/mm3 (150-400); RDW Coefficient Variation 13.2 % (11.7-14.2); RDW Standard Deviation 44.9 fL (35.1-46.3); Red Blood Cell Count 3.34 M/mm3 (3.80-5.20); White Blood Cell Count 15.58 K/mm3 (4.00-11.30)
[2021-03-31 04:31] LABS: Anion Gap 5 mmol/L (6-16); Blood Urea Nitrogen 24 mg/dL (8-24); Bun/Creatinine Ratio 56.2 (12.0-20.0); CO2, Blood 29 mmol/L (21-32); Calcium, Blood 7.4 mg/dL (8.5-10.1); Chloride, Blood 106 mmol/L (98-108); Creatinine, Blood 0.43 mg/dL (0.40-1.00); Glomerular Filtration Rate >60 (60-); Glucose, Blood 211 mg/dL (70-99); Magnesium, Blood 1.8 mg/dL (1.6-2.4); Phosphorus, Blood 3.6 mg/dL (2.5-4.9); Potassium, Blood 3.8 mmol/L (3.5-5.5); Sodium, Blood 140 mmol/L (136-145)
[2021-03-31 05:04] LABS: pH Blood Arterial 7.44 (7.35-7.45)
--- NOTE | 2021-03-31 07:20 | NUR ---
Shift summary. Pt continues on ventilator, settings; Spontaneous PC, 05/05 peep 8, Fi02 50%. OG tube in place, vital high protein running at 20 ml/hr. PICC line in BRIAN, powerglide in ANDREZ. IV pump settings: Propofol 35 mcg/kg/min, precedex 1.4 mcg/kg/hr, fentanyl operations forester at 100 mcg/hr, NS at 10 ml/hr, levophed on standby at this time. Loja catheter in place, draining clear/yellow urine. Rectal thermometer in place. SCDs in place. Pt continued to have labile blood pressures during shift. No acute needs at this time, report given to dayshift RN.
--- NOTE | 2021-03-31 08:00 | NUR ---
ASSUMED CARE REPORT FROM JACKI LUJAN. PT INTUBATED, SEDATED. VENT SETTINGS SPONT 10/8/50%. PROPOFOL, PRECEDEX AND FENTANYL GTT FOR PAIN AND SEDATION. PT OPENS EYES SPONTANEOUSLY. FOLLOWS SIMPLE COMMANDS. COUGH/GAG/SWALLOW REFLEX PRESENT. LUNGS DIM THROUGHOUT. SCANT SECRETIONS SQ CREPITUS TO UPPER CHEST AND UPPER ARMS. NONE NOTED TO BACK. ABD ROUND, SOFT, NON TENDER. TUBE FEEDS AT GOAL, RESIDUALS 150 ML THIS AM. DIANE PATENT, DRAINING CLEAR YELLOW URINE TO GRAVITY. LEVO GTT FOR MAP> 65. BP LABILE, WHEN PT STIMULATED, ELEVATED BP. PICC TO LUE, POWERGLIDE TO RUE, DRESSING C/D/I. WILL CONTINUE TO MONITOR.
--- NOTE | 2021-03-31 18:30 | NUR ---
SHIFT SUMMARY PT REMAINS INTUBATED AND SEDATED. VENT HAS BEEN ON SPONT ENTIRE SHIFT, FIO2 TITRATED DOWN, CURRENT VENT SETTINGS 10/8/5/35%. LUNGS DIM, SCANT SECRETIONS. SLIGHT CREPITUS PALPABLE TO UPPER CHEST AND UPPER ARMS. PER XRAY, RESOLVED. PT OCCASIONALLY DYSYCHRONOUS c VENT, DOUBLE STACKING. IMPROVED c INCREASED SEDATION. PROPOFOL, PRECEDEX AND FENTANYL GTT INFUSING. ABD ROUND, SOFT, NON TENDER. BT X 4. TUBE FEEDS AT GOAL. DIANE PATENT, DRAINING CLEAR YELLOW URINE TO GRAVITY. 750 ML OUT THIS SHIFT. POWERGLIDE AND PICC IN PLACE, DRESSINGS C/D/I. LEVO ON STANDBY MOST OF SHIFT, ALBUMIN X 3 GIVEN. WILL CONTINUE TO MONITOR UNTIL REPORT TO ONCOMING NURSE.
--- NOTE | 2021-03-31 19:30 | NUR ---
Assumed care. Report recieved by divina LUJAN. Pt continues on ventilator, settings: pressure support 05/05, peep 5, Fi02 35%. OG tube in place, vital high protein running at 20 ml/hr. PICC line in BRIAN, powerglide in ANDREZ. IV pump settings: Propofol 45 mcg/kg/min, Precedex 1.4 mcg/kg/hr, Fentanyl DESIGN DRAFTSMAN 100 mcg/hr, NS 10 ml/hr. Loja catheter in place, clear/yellow urine draining currently. Rectal thermometer in place. SCDs in place. No acute needs noted at this time, will continue to monitor.
[2021-04-01 04:07] LABS: BASOPHILS ABSOLUTE AUTO 0.02 K/mm3 (0.00-0.23); BASOPHILS PERCENT AUTO 0 % (0-2); EOSINOPHILS ABSOLUTE AUTO 0.04 K/mm3 (0.00-0.68); EOSINOPHILS PERCENT AUTO 0 % (0-6); Hematocrit 28.4 % (33.0-51.0); Hemoglobin 9.2 g/dL (11.5-16.0); IMMATURE GRAN ABSOLUTE AUTO 0.11 K/mm3 (0.00-0.10); IMMATURE GRAN PERCENT AUTO 1 % (0-1); LYMPHOCYTES ABSOLUTE AUTO 0.72 K/mm3 (0.84-5.20); LYMPHOCYTES PERCENT AUTO 6 % (21-46); MONOCYTES ABSOLUTE AUTO 0.42 K/mm3 (0.16-1.47); MONOCYTES PERCENT AUTO 4 % (4-13); Mean Corpuscular HGB 30.8 pg (26.0-34.0); Mean Corpuscular HGB Conc 32.4 g/dL (31.5-36.5); Mean Corpuscular Volume 95 fL (80-100); Mean Platelet Volume 10.6 fL (9.1-12.4); NEUTROPHILS PERCENT AUTO 89 % (41-73); Platelet Count 240 K/mm3 (150-400); RDW Coefficient Variation 13.2 % (11.7-14.2); Red Blood Cell Count 2.99 M/mm3 (3.80-5.20); White Blood Cell Count 11.71 K/mm3 (4.00-11.30)
[2021-04-01 04:22] LABS: Albumin, Blood 3.5 g/dL (3.4-5.0); Anion Gap 3 mmol/L (6-16); Blood Urea Nitrogen 26 mg/dL (8-24); Bun/Creatinine Ratio 64.4 (12.0-20.0); CO2, Blood 32 mmol/L (21-32); Calcium, Blood 8.4 mg/dL (8.5-10.1); Chloride, Blood 106 mmol/L (98-108); Glomerular Filtration Rate >60 (60-); Glucose, Blood 122 mg/dL (70-99); Phosphorus, Blood 3.3 mg/dL (2.5-4.9); Potassium, Blood 4.1 mmol/L (3.5-5.5); Sodium, Blood 141 mmol/L (136-145)
--- NOTE | 2021-04-01 06:35 | NUR ---
Shift summary. Pt continues on ventilator: spontaneous 05/02, 40% Fi02. OG tube in place, tube feed currently on standby for high residuals, Q6 regalin administered twice during shift. Powerglide in ANDREZ, PICC in BRIAN, iv pump settings: Precedex 1.4 mcg/kg/hr, Propofol 40 mcg/kg/min, Fentanyl PATENT ENGINEER 100 mcg/hr, NS 10 ml/hr. Loja catheter in place, draining clear/yellow urine, 1100 out this shift. Rectal thermometer in place. Will continue to monitor and report off to dayshift RN.
--- NOTE | 2021-04-01 08:00 | NUR ---
ASSUMED CARE REPORT FROM JACKI/CHELSIE LUJAN. PT INTUBATED AND SEDATED. VENT SETTINGS SPONT 10/8/5/40%. LUNGS COARSE, WORSE ON RIGHT SIDE. COUGH/GAG/SWALLOW REFLEX. PROPOFOL, PRECEDEX, AND FENTANYL GTT FOR PAIN AND SEDATION. PT DOUBLE STACKS ON VENT. OPENS EYES TO VERBAL STIMULI. DOES NOT FOLLOW COMMANDS. ABD ROUND, SOFT NON TENDER. HYPOACTIVE BT. TUBE FEEDS RESTARTED AT 10 ML/HR. NO BM. DIANE PATENT, DRAINING CLEAR YELLOW URINE TO GRAVITY. BP STABLE, NSR, RATE 80'S. PICC TO LUE, POWERGLIDE RUE, DRESSINGS C/D/I. WILL CONTINUE TO MONITOR.
--- NOTE | 2021-04-01 11:52 | NUR ---
EXTUBATION PT EXTUBATED AT 1110. PLACED ON 4L VIA NC, PT IMMEDIATELY DESAT'D TO 79%. PT MOUTH BREATHING. PLACED ON NRB AT 15L, O2 SATS INCREASED TO 99%. CURRENTLY TITRATING O2, ON 10L VIA OXYMIZER. FAMILY UPDATED.
--- NOTE | 2021-04-01 17:40 | NUR ---
POST EXTUBATION/REINTUBATION/SHIFT SUMMARY O2 REQUIREMENTS CONTINUED TO ELEVATE. PT INCREASINGLY ANXIOUS/TACHYPNIC/TACHYCARDIA. MEDICATED c ATIVAN AND RESTARTED PRECEDEX GTT s RELIEF. O2 SATS DROPPED TO 70'S. ATTEMPTED AIRVO AND BIPAP, AGAIN O2 SATS DECREASED TO MID 80'S AND RR 50'S. DECISION MADE TO INTUBATE. 7.5 ETT, 24 AT TEETH. LUNGS INITIALLY COARSE, NOW CLEAR. SCANT SECRETIONS. VENT SETTINGS AC/PC 16/17/100%. PROPOFOL AND PRECEDEX GTT. LEVO FOR MAP>65. DOBHOFF PLACED TO RIGHT NARE. PLACEMENT VERIFIED c XRAY. WILL CONTINUE TO MONITOR UNTIL REPORT TO ONCOMING NURSE.
--- NOTE | 2021-04-01 22:12 | NUR ---
ASSUMED CARE OF PATIENT AT 1900, REPORT RECEIVED FROM MANISH LUJAN. PT INTUBATED AND SEDATED. VENT SETTINGS PC 16, PEEP 17, FIO2 80% WITH SPO2 >92%. CURRENTLY INFUSING: PRECEDEX @ 1.4 MCG/KG, PROPOFOL @ 50 MCG/KG, AND LEVO @ 2 MCG/KG. FENTANYL INFORMATION SYSTEMS ADMINISTRATOR STARTED AT BEGINNING OF SHIFT @ 50 MCG CONTINUOUS/HR. LUNGS CLEAR WITH DIM BASES. ABD WITH MODERATE DISTENTION, ACTIVE BOWEL TONES. PT WITH LARGE, LIQUID, BROWN BOWEL MOVEMENT AT THE BEGINNING OF THIS SHIFT; COMPLETE BED BATH DONE. DIANE DRAINING CLEAR YELLOW URINE TO GRAVITY.
[2021-04-01 22:46] LABS: PCO2 Arterial 40.2 mmHg (35-45); PO2 Arterial 121 mmHg (80-100); pH Blood Arterial 7.45 (7.35-7.45)
[2021-04-02 03:59] LABS: BASOPHILS ABSOLUTE AUTO 0.02 K/mm3 (0.00-0.23); BASOPHILS PERCENT AUTO 0 % (0-2); EOSINOPHILS ABSOLUTE AUTO 0.08 K/mm3 (0.00-0.68); EOSINOPHILS PERCENT AUTO 1 % (0-6); Hematocrit 31.1 % (33.0-51.0); IMMATURE GRAN PERCENT AUTO 1 % (0-1); LYMPHOCYTES ABSOLUTE AUTO 1.15 K/mm3 (0.84-5.20); LYMPHOCYTES PERCENT AUTO 7 % (21-46); MONOCYTES ABSOLUTE AUTO 0.51 K/mm3 (0.16-1.47); MONOCYTES PERCENT AUTO 3 % (4-13); Mean Corpuscular HGB 30.3 pg (26.0-34.0); Mean Corpuscular HGB Conc 32.2 g/dL (31.5-36.5); Mean Corpuscular Volume 94 fL (80-100); Mean Platelet Volume 10.6 fL (9.1-12.4); NEUTROPHILS PERCENT AUTO 88 % (41-73); Platelet Count 271 K/mm3 (150-400); RDW Coefficient Variation 13.6 % (11.7-14.2); RDW Standard Deviation 45.8 fL (35.1-46.3); White Blood Cell Count 16.06 K/mm3 (4.00-11.30)
[2021-04-02 04:12] LABS: Albumin, Blood 3.3 g/dL (3.4-5.0); Anion Gap 4 mmol/L (6-16); Blood Urea Nitrogen 28 mg/dL (8-24); Bun/Creatinine Ratio 57.6 (12.0-20.0); CO2, Blood 30 mmol/L (21-32); Calcium, Blood 8.5 mg/dL (8.5-10.1); Chloride, Blood 108 mmol/L (98-108); Creatinine, Blood 0.49 mg/dL (0.40-1.00); Glomerular Filtration Rate >60 (60-); Glucose, Blood 159 mg/dL (70-99); Phosphorus, Blood 3.8 mg/dL (2.5-4.9); Potassium, Blood 3.9 mmol/L (3.5-5.5); Sodium, Blood 142 mmol/L (136-145)
--- NOTE | 2021-04-02 06:24 | NUR ---
SHIFT SUMMARY PT REMAINS INTUBATED AND SEDATED. VENT SETTINGS PC 16, PEEP 12, FIO2 50% WITH SPO2 96%. PROPOFOL INFUSING @ 50 MCG/KG, PRECEDEX @ 1.4 MCG/KG, LEVO @ 1 MCG/KG, AND FENTANYL @ 50 MCG/HR. PT WITH ONE BM THIS SHIFT, ACTIVE BT'S. NO TF ORDERS AT THIS TIME. LUNGS CLEAR WITH DIM BASES, SCANT AMOUNT OF THICK WHITE SECRETIONS VIA ETT. DIANE DRAINING CLEAR YELLOW URINE TO GRAVITY.
--- NOTE | 2021-04-02 18:38 | NUR ---
SHIFT SUMMARY PT HAD UNEVENTFUL DAY. LS CLEAR T/O WITH SMALL AMOUNT OF THICK WHITE SECRETIONS, VENT SETTINGS PC 16/10, FIO2 40%, SPO2 MID 90'S. HR 60'S SINUS, BP STABLE WITH LEVOPHED 1MCG, ATTEMPTED TO TITRATE LEVO OFF UNSUCCESSFULLY. PROPOFOL 50MCG, DECREASED FOR SEDATION VACATION TODAY, PT WOKE, MADE EYE CONTACT, FOLLOWED SOME BUT NOT ALL SIMPLE COMMANDS. VS REMAINED STABLE WITH DECREASED SEDATION BUT PT WAS AGITATED AND TRYING TO SIT UP IN BED, RESEDATED. PRECEDEX INFUSING AT 1.4MCG, FENTANYL 50MCG INFUSION. ABD SOFT WITH BT, BOWEL CARE ADMINISTERED. TF RESUMED THIS EVENING AT 10ML/HR, REGLAN ORDERED PRN. PT HAD POOR URINE OUTPUT TODAY, WILL CONTINUE TO MONITOR RENAL FUNCTION. PT'S DAUGHTER IN LAW/FAMILY CONTACT UPDATED, PLANNING FOR TRACH/PEG ON SATURDAY. CONSULT TO DR. VASQUEZ CALLED BY DR. LAINEZ. BLE VENOUS DOPPLER US NEGATIVE FOR DVT.
--- NOTE | 2021-04-02 21:59 | NUR ---
ASSUMPTION OF CARE RECEIVED REPORT FROM TAI HARP @ [id number]. PT INTUBATED AND SEDATED. PROPOFOL 50MCG/KG/MIN, PRECEDEX @ 1.4MCG/KG/HR, FENTANYL @ 50MCG/HR. PT UNABLE TO FOLLOW COMMANDS, GRIMACING WITH ORAL CARE. VENT ON PS 16/ FI02 40%, SATS 97%. LUNGS ARE CLEAR BUT DIMINISHED THROUGHOUT. HR SINUS IN 60'S, BP STABLE WITH LEVOPHED AT 1MCG/MIN. LEVO WAS STOPPED AT 2036 DUE TO HYPERTENSIVE BP OF 174/104. RESTARTED AT 2047 AFTER BP OF 85/62. DOBHOFF SECURED IN RIGHT NARE, TUBE FEED AT 10ML/HR. DIANE PATENT, DRAINING TO GRAVITY CLEAR/YELLOW URINE. WILL REVIEW ORDERS AND TREAT PRESCRIBED.
[2021-04-03 04:15] LABS: BASOPHILS ABSOLUTE AUTO 0.01 K/mm3 (0.00-0.23); BASOPHILS PERCENT AUTO 0 % (0-2); EOSINOPHILS ABSOLUTE AUTO 0.24 K/mm3 (0.00-0.68); EOSINOPHILS PERCENT AUTO 2 % (0-6); Hematocrit 33.1 % (33.0-51.0); Hemoglobin 10.7 g/dL (11.5-16.0); IMMATURE GRAN ABSOLUTE AUTO 0.06 K/mm3 (0.00-0.10); IMMATURE GRAN PERCENT AUTO 1 % (0-1); LYMPHOCYTES ABSOLUTE AUTO 0.89 K/mm3 (0.84-5.20); LYMPHOCYTES PERCENT AUTO 8 % (21-46); MONOCYTES ABSOLUTE AUTO 0.41 K/mm3 (0.16-1.47); MONOCYTES PERCENT AUTO 4 % (4-13); Mean Corpuscular HGB 30.5 pg (26.0-34.0); Mean Corpuscular HGB Conc 32.3 g/dL (31.5-36.5); Mean Corpuscular Volume 94 fL (80-100); Mean Platelet Volume 10.2 fL (9.1-12.4); NEUTROPHILS PERCENT AUTO 86 % (41-73); Platelet Count 280 K/mm3 (150-400); RDW Coefficient Variation 13.4 % (11.7-14.2); RDW Standard Deviation 45.5 fL (35.1-46.3); Red Blood Cell Count 3.51 M/mm3 (3.80-5.20); White Blood Cell Count 11.31 K/mm3 (4.00-11.30)
[2021-04-03 04:31] LABS: Albumin, Blood 3.1 g/dL (3.4-5.0); Anion Gap 3 mmol/L (6-16); Blood Urea Nitrogen 21 mg/dL (8-24); CO2, Blood 30 mmol/L (21-32); Chloride, Blood 107 mmol/L (98-108); Creatinine, Blood 0.41 mg/dL (0.40-1.00); Glomerular Filtration Rate >60 (60-); Glucose, Blood 151 mg/dL (70-99); Phosphorus, Blood 3.2 mg/dL (2.5-4.9); Potassium, Blood 4.2 mmol/L (3.5-5.5); Sodium, Blood 140 mmol/L (136-145)
--- NOTE | 2021-04-03 06:27 | NUR ---
PT REMAINS INTUBATED AND SEDATED. ALL DRIPS REMAIN UNCHANGED. VENT SETTINGS ARE PC 16/10, PEEP 8 AND FI02 40%. SATS REMAINED 97-98%. LUNG SOUNDS ARE CLEAR/DIMINISHED. CREPITUS CONTINUES IN NECK AND SMALL AMOUNT IN RIGHT ARM. HR NORMAL SINUS IN 60'S, BP STABLE ON LEVOPHED @ 1MCG/KG/MIN. DOBHOFF WITH TF AT 10ML/HR. DIANE PATENT DRAINING CLEAR, YELLOW URINE, OUTPUT OF 1300ML. WILL GIVE REPORT TO ONCOMING RN.
--- NOTE | 2021-04-03 13:03 | NUR ---
UPDATE: ATTEMPTED TO DECREASE PROPOFOL TO 35MCG/KG/MIN, PRECEDEX TO 1.0MCG/KG/HR. UNSUCCESFUL, PT ATTEMPTED TO SIT UP IN BED, COUGHING, SpO2 DECREASED TO 78% PT UNABLE TO TOLERATE VENT WITH LOWER SEDATION. PROPOFOL INCREASED TO 50MCG/KG/MIN AND PRECEDEX BACK TO 1.4MCG/KG/HR. PT RELAXED, TOLERATING VENT, SPO2 MAINTAINING ABOVE 90% WILL CONTINUE TO MONITOR
--- NOTE | 2021-04-03 18:37 | NUR ---
SHIFT SUMMARY: PT CONTINUES TO BE ON VENT, SETTINGS RR15, PC15, PEEP 5, FiO2 OF 35% , SpO2 REMAINING ABOVE 90% NO SECRETIONS NOTED VIA ETT. RR IN SYNC WITH THE VENT. ATTEMPTED TO DECREASE SEDATION (SEE PREVIOUS NOTE) HOWEVER WAS UNABLE D/T PT BECOMING AGITATED AND WAS UNABLE TO TOLERATE VENT. PT HAS BEEN IN SR WITH HR IN THE 60'S. BP HAS BEEN STABLE WITH LEVOPHED AT 1MCG/MIN, UNABLE TO PLACE LEVOPHED ON SB DUE TO SBP DROPPING INTO THE 70'S AND MAPS IN THE 50'S. TF RUNNING AT 25ML/HR. WILL PLACE ON SB AT 0000 FOR TRACH PLACEMENT 04/04/21. DIANE IS PATENT, DRAINING TO GRAVITY, YELLOW CLEAR URINE. WILL CONTINUE TO MONITOR PT UNTIL REPORT IS GIVEN TO ONCOMING SHIFT.
--- NOTE | 2021-04-03 20:31 | NUR ---
[facility] of Care Received report from TAI Rossi @ 2904. Pt intubated and sedated. Propofol 50mcg/kg/min, Precedex 1.4mcg/kg/hr, and Fentanyl VAULT MANAGER at 50mcg/hr. She is unable to follow any commands, mild grimacing with oral care. Vent setting at RR 15, PC 15, PEEP 5, FI02 35%, sats 96% and pt synchronous with vent. Lung sounds clear throughout, crepitus palpated around the neck and into right arm. HR is sinus in 60's, Levophed at 1mcg/min and BP remains stable. Dobhoff in right nare, tube feed increased to goal of 35ml/hr, to be placed on standby for Trach/PEG procedure tomorrow. Loja patent with yellow/clear urine. Skin is warm and intact with bruising noted around the abdomen. Orders have been reviewed and will treat as prescribed.
[2021-04-04 04:25] LABS: BASOPHILS ABSOLUTE AUTO 0.02 K/mm3 (0.00-0.23); BASOPHILS PERCENT AUTO 0 % (0-2); EOSINOPHILS ABSOLUTE AUTO 0.26 K/mm3 (0.00-0.68); EOSINOPHILS PERCENT AUTO 2 % (0-6); Hematocrit 33.3 % (33.0-51.0); Hemoglobin 10.8 g/dL (11.5-16.0); IMMATURE GRAN ABSOLUTE AUTO 0.05 K/mm3 (0.00-0.10); IMMATURE GRAN PERCENT AUTO 0 % (0-1); LYMPHOCYTES ABSOLUTE AUTO 0.68 K/mm3 (0.84-5.20); LYMPHOCYTES PERCENT AUTO 6 % (21-46); MONOCYTES ABSOLUTE AUTO 0.44 K/mm3 (0.16-1.47); MONOCYTES PERCENT AUTO 4 % (4-13); Mean Corpuscular HGB 30.4 pg (26.0-34.0); Mean Corpuscular HGB Conc 32.4 g/dL (31.5-36.5); Mean Corpuscular Volume 94 fL (80-100); Mean Platelet Volume 10.6 fL (9.1-12.4); NEUTROPHILS ABSOLUTE AUTO 9.98 K/mm3 (1.96-9.15); NEUTROPHILS PERCENT AUTO 87 % (41-73); Platelet Count 268 K/mm3 (150-400); RDW Coefficient Variation 13.3 % (11.7-14.2); RDW Standard Deviation 45.4 fL (35.1-46.3); Red Blood Cell Count 3.55 M/mm3 (3.80-5.20); White Blood Cell Count 11.43 K/mm3 (4.00-11.30)
[2021-04-04 04:47] LABS: Anion Gap 3 mmol/L (6-16); Blood Urea Nitrogen 21 mg/dL (8-24); Bun/Creatinine Ratio 52.6 (12.0-20.0); CO2, Blood 30 mmol/L (21-32); Calcium, Blood 8.2 mg/dL (8.5-10.1); Chloride, Blood 106 mmol/L (98-108); Glomerular Filtration Rate >60 (60-); Glucose, Blood 152 mg/dL (70-99); Potassium, Blood 3.9 mmol/L (3.5-5.5); Sodium, Blood 139 mmol/L (136-145)
[2021-04-04 05:05] LABS: PCO2 Arterial 39.8 mmHg (35-45); PO2 Arterial 73.8 mmHg (80-100); pH Blood Arterial 7.49 (7.35-7.45)
--- NOTE | 2021-04-04 06:01 | NUR ---
Pt remains intubated and sedated. Sedation gtt are unchanged from beginning of shift. She has had a few episodes of increased coughing, opening her eyes and trying to sit up, but movements are very weak and she is unable to follow commands. During these episodes she desatted to 86-87% and was slow to recover. FIO2 was increased to 40% and she remained 96-98% rest of shift; otherwise, vent settings unchanged and pt synchronous with vent. Lungs coarse at times, but clear with ETT suction. HR remained sinus in 60-70's. BP stable with Levophed at 1mcg/min. Dobhoff remains in place, TF stopped at 0000 per order in anticipation of Trach/PEG procedure today. Loja patent, draining clear yellow urine with good output.
--- NOTE | 2021-04-04 07:30 | NUR ---
INITIAL ASSESSMENT: REPORT RECIVED FROM ILDA ELIAS RN. PT IS INTUBATED, SEDATED, AND NOT ABLE TO FOLLOW COMMANDS. PRECEDEX GTT 1.4 MCG/KG/HR, PROPOFOL 50 MCG/KG/MIN, AND PATIENT HAS A FENTANYL CREASING MACHINE OPERATOR INFUSING AT 50MCG/HR. LS COARSE T/O, SUCTIONED SMALL AMOUNT OF CRANDALL THICK SPUTUM. HRR. VENT SETTINGS PC 15 PEEP 5 AND 40% FIO2, BIOX 97%. BT HYPOACTIVE, LAST BM 04/02. PPP. VSS. DOBHOFF TO RIGHT NARE, TF OFF FOR POTENTIAL PEG TUBE PLACEMENT TODAY. ORAL CARE DONE. DIANE CATH PATENT AND DRAINING CLEAR YELLOW URINE.
--- NOTE | 2021-04-04 08:45 | NUR ---
REPORT GIVEN TO KAYLEY LUJAN. DR. VASQUEZ STOPPED BY TO SEE THE PATIENT, PLAN FOR A TRACH TODAY AT 1215.
--- NOTE | 2021-04-04 11:10 | NUR ---
0900 ASSUMED CARE OF PT FROM TAI REECE. PT INTUBATED AND SEDATED. VENT SETTINGS AC/PC PC 15, RR 15, PEEP 5, 35% FIO2. PROPOFOL @ 50 MCG/KG/MIN, FENTANYL GTT @ 50 MCG/HR, PRECEDEX @ 1.4 MCG/KG/HR, LEVOPHED @ 1 MCG/MIN. PT WITHDRAWS FROM PAINFUL STIMULUS, FAILS TO FOLLOW COMMANDS AT THIS TIME. LUNG SOUNDS CLEAR WITH DIM BASES. ABDOMEN SOFT, BT HYPOACTIVE. DOBHOFF CLAMPED, TUBE FEED ON HOLD FOR ANTICIPATED TRACH/PEG PROCEDURE THIS AFTERNOON. TEMP DIANE PATENT AND DRAINING.
--- NOTE | 2021-04-04 13:05 | NUR ---
[id number]: 6 perc trach placed and secured by Dr Macedo and Dr Giles. Pt received 3 mg versed + additional 1 mg versed at 1245, 50 fentanyl at 1245. Procedure completed at 1247. Pt tolerated well. Chest/neck XR done. VSS.
--- NOTE | 2021-04-04 15:07 | NUR ---
RESTARTED VITAL HIGH PROTEIN TUBE FEED AT GOAL RATE 35 ML/HR WITH 30 ML Q4 FLUSH
--- NOTE | 2021-04-04 18:27 | NUR ---
Pt trach remains stable, no s/sx bleeding, vent settings unchanged. Levo on SB since 0. Sedation unchanged. PEG held for today, plan to reduce sedation tomorrow to assess neuro function. pt Dtr and dtr-in-law updated on pt status and POC. TF restarted at goal. VSS. Will report off to NOC RN.
--- NOTE | 2021-04-04 19:58 | NUR ---
[place] of care Pt sedated with new perc size [address] Propofol at 50mcg, Precedex at 1.4, and Fentanyl SUBSURFACE AUGMENTEE ELINT OPERATOR at 50mcg/hr. Pt grimacing and clenching jaw shut with oral care; otherwise, no purposeful movements or responding to commands. Trach sutured in place with no s/sx of bleeding. Small amount of bloody secretions in suction tubing. Vent settings PC RR 18, PEEP 5, FiO2 30%, Sp02 95%. Lungs are coarse throughout. HR is sinus in 60's, Levophed restarted at 1mcg/min due to soft BP and MAP <60. Pt now normotensive. Dobhoff in place with VHP at goal of 35ml/hr. Loja patent, draining clear yellow urine. Orders reviewed and will treat as prescribed.
[2021-04-05 05:40] LABS: BASOPHILS ABSOLUTE AUTO 0.02 K/mm3 (0.00-0.23); BASOPHILS PERCENT AUTO 0 % (0-2); EOSINOPHILS ABSOLUTE AUTO 0.15 K/mm3 (0.00-0.68); EOSINOPHILS PERCENT AUTO 1 % (0-6); Hematocrit 35.5 % (33.0-51.0); Hemoglobin 11.5 g/dL (11.5-16.0); IMMATURE GRAN ABSOLUTE AUTO 0.06 K/mm3 (0.00-0.10); IMMATURE GRAN PERCENT AUTO 1 % (0-1); LYMPHOCYTES ABSOLUTE AUTO 1.02 K/mm3 (0.84-5.20); LYMPHOCYTES PERCENT AUTO 8 % (21-46); MONOCYTES ABSOLUTE AUTO 0.47 K/mm3 (0.16-1.47); MONOCYTES PERCENT AUTO 4 % (4-13); Mean Corpuscular HGB 30.2 pg (26.0-34.0); Mean Corpuscular HGB Conc 32.4 g/dL (31.5-36.5); Mean Corpuscular Volume 93 fL (80-100); Mean Platelet Volume 10.5 fL (9.1-12.4); NEUTROPHILS ABSOLUTE AUTO 10.44 K/mm3 (1.96-9.15); NEUTROPHILS PERCENT AUTO 86 % (41-73); Platelet Count 289 K/mm3 (150-400); RDW Coefficient Variation 13.6 % (11.7-14.2); RDW Standard Deviation 45.5 fL (35.1-46.3); Red Blood Cell Count 3.81 M/mm3 (3.80-5.20); White Blood Cell Count 12.16 K/mm3 (4.00-11.30)
[2021-04-05 06:00] LABS: Anion Gap 5 mmol/L (6-16); Blood Urea Nitrogen 22 mg/dL (8-24); Bun/Creatinine Ratio 54.5 (12.0-20.0); CO2, Blood 28 mmol/L (21-32); Calcium, Blood 8.2 mg/dL (8.5-10.1); Chloride, Blood 104 mmol/L (98-108); Glomerular Filtration Rate >60 (60-); Glucose, Blood 260 mg/dL (70-99); Sodium, Blood 137 mmol/L (136-145)
--- NOTE | 2021-04-05 06:44 | NUR ---
Pt remains on the vent with 6.0 percutaneous trach. Sedation vacation and wean done this morning. Propofol off just after 4am and remained off until 0515 and titrated up to 35mcg/kg/min as pt was coughing and moving. Pt tolerated wean for about 40 minutes and was able to be redirected during wean. She was able to follow commands, smiled and eyes were open and was able to track. Vent settings now back to PC, RR 18, peep 5, FiO2 40%. Sats are 96-98%. Moderate amounts of secretions with suctioning, blood streaked. Lung sounds are coarse and diminished throughout. Crepitus to left neck, minimal. HR remained sinus in 60-70's. BP stable, MAP maintained >65 with Levophed at 1mcg/min. Dobhoff in place with TF at goal. Loja patent with clear yellow output. Will give report to oncoming RN.
--- NOTE | 2021-04-05 07:15 | NUR ---
INITIAL ASSESSMENT: PT IS RESTING WITH EYES CLOSED, OPENS EYES TO VERBAL STIMULI, IS NOT ABLE TO FOLLOW COMMANDS. PROPOFOL INFUSING AT 35MCG/KG/MIN AND PRECEDEX GTT INFUSING AT 1.4 MCG/KG/HR. HRR, SR IN THE 70. LS COARSE T/O, PT HAS A NEW TRACH PLACED 6.0 PER TRACH, VENT SETTINGS CURING PRESS OPERATOR RATE 18 VT 435 FIO2 40 AND PEEP 5, BIOX 98%. BT+. PT HAS DOBHOFF TO LEFT NARE, VITAL HIGH PROTEIN AT 35ML/HR-GOAL RATE. VSS. LEVOPHED GTT INFUSING AT 1MCG/MIN. AM MEDS GIVEN VIA DOBHOFF. PT RESTING COMFORTABLY AT THIS TIME. WILL CONTINUE TO MONITOR.
--- NOTE | 2021-04-05 09:30 | NUR ---
UPDATE: DR. EVANS ROUNDED, CHANGED VENT SETTINGS TO SPONTANEOUS PEEP 5 FIO2 WAS 30% INITIALLY. PT IS STARTING TO OPEN HER EYES AND IS OCCASIONALLY TACHYPNEC, SHE IS CALM WITH STAFF AT THE BEDSIDE. SHE IS OCCASIONALLY MOVING HER HEAD FROM SIDE TO SIDE AND LIFTING ARMS. FIO2 HAD TO BE INCREASED TO 45%, BIX WAS DROPPING DOWN IN TO THE 70S PT IS ALSO COUGHING, WITH THE INCREASE HER OXYGEN SATURATIONS ARE UP TO 96% WHEN SHE IS RESTING
--- NOTE | 2021-04-05 15:06 | NUR ---
UPDATE: THIS RN AND RT WERE ABLE TO TITRATE PTS OXYGEN DOWN TO 30%FIO2 ON THE VENT. DR. EVANS WOULD LIKE TO TRY A TRACH COLLAR, PT IS NOW ON AIRVO VIA TRACH, 35L FIO2 45%. PT IS OOB TO THE CHAIR. PROPOFOL TITRATED DOWN TO 20 MCG/KG/MIN, AND PRECEDEX GTT CONTINUES TO INFUSE AT 1.4 MCG/KG/MIN. PT IS AWAKE AND ABLE TO FOLLOW SOME COMMANDS. PT IS TEARFUL AND TACHYPNEC AT TIMES. LEVOPHED WAS TURNED OFF AT 12 BP REMAINS STABLE WITH A MAP ABOVE 60. WILL CONTINUE TO MONITOR.
--- NOTE | 2021-04-05 17:17 | NUR ---
ASSESSMENT UNCHANGED. PT HAS WAS OOB TO RECLINER WITH THE LIFT. SHE STARTED TO BECOME RESTLESS, TOSSING HER HEAD BACK AN FOURTH AND THROWING UP HER ARMS INTERMITTENTLY. PT IS FEBRILE 101.1, TYLENOL GIVEN VIA DOBHOFF. ATIVAN AND SEROQUEL GIVEN VIA DOBHOFF. FENTANYL GIVEN FOR DISCOMFORT. PT BACK TO BED VIA CHAIR SLING AND CELING LIFT. VBG SENT. CURRENTLY FIO2 50%, PT HAS BEEN COUGHING AND HAD COPIUS AMOUNTS OF CLEAR/WHITE SPUTUM. PT HAS ALSO REQUIRED FREQUENT ORAL SUCTIONING. PT IS CURRENTLY RESTING IN BED WITH EYES OPEN. WILL CONTINUE TO MONITOR.
[2021-04-05 17:18] LABS: Base Excess Venous 4.3 mmol/L; Bicarbonate Venous 27.7 mmol/L (24.0-30.0); PCO2 Venous 37.8 mmHg (38-42); pH Blood Venous 7.48 (7.34-7.37)
--- NOTE | 2021-04-05 17:59 | NUR ---
SUMMARY: PATIENT IS HERE WITH COVID, TRACH PLACED YESTERDAY BY DR. VASQUEZ 6.0 PERC. THIS MORNING PATIENT WAS ON VENT WITH PC SETTINGS PI17, PEEP 5, FIO2 30%. PT WAS ABLE TO BE SWITCHED TO SPONTANEOUS MODE AND THEN TRANSITIONED OFF THE VENT TO THE ARIVO 35L 50% FIO2, WITH SATS IN THE MID TO LOW 90S. LEVOPHED ON STANDBY, MAP ABOVE 60. FENTANYL HIDE AND SKIN CLASSER HAS BEEN TURNED OFF AND PROPOFOL WAS TITRATED DOWN TO 20 MCG/KG/HR, HOWEVER PT WAS VERY RESTLESS TOSSING HER HEAD BACK AND FORTH AND INTERMITTENTLY LIFTING ARMS OFF THE BED. VBG SHOWED GOOD RESULTS THIS AFTERNOON, PT IS BACK ON THE VENT WITH PREVIOUS PRESSURE CONTROL SETTINGS, PLAN TO TRANSITION BACK TO THE ARIVO TOMORROW. PT HAS HAD COPIOUS AMOUNTS OF SECRETIONS ORALLY AND VIA TRACH, SHE HAS BEEN COUGHING ALOT ALSO. PT WAS OOB TO CHAIR TODAY VIA LIFT. NO OTHER ACUTE CHANGES THIS SHIFT. UPDATES WERE PROVIDED TO DAUGHTER AND DAUGHTER IN LAW.
--- NOTE | 2021-04-05 20:11 | NUR ---
ASSUMED CARE OF PT AT 1900, REPORT RECEIVED FROM MARK LUJAN. PT INTUBATED AND SEDATED. PROPOFOL INCREASED TO 60 MCG/KG, FENTANYL @ 50 MCG/HR, PRECEDEX @ 1.4 MCG/KG, LEVO @ 2 MCG/KG. PT FIGHTING VENT, HIGH RESPIRATORY RATE AND HIGH PEAK PRESSURES. PRN ATIVAN GIVEN. VENT SETTINGS PC 17, PEEP 5, FIO2 60%, SPO2 94%. HR 115'S SINUS ON MONITOR, SBP 90'S. DOBHOFF TO R NARE, TF VHP RUNNING AT GOAL RATE OF 35 ML/HR WITH 30 ML Q4H WATER FLUSHES. PULSES PALPABLE IN ALL EXTREMITIES. PT NOT FOLLOWING ANY COMMANDS AT THIS TIME. DOES OPEN EYES SPONTANEOUSLY.
[2021-04-06 04:21] LABS: BASOPHILS ABSOLUTE AUTO 0.06 K/mm3 (0.00-0.23); BASOPHILS PERCENT AUTO 0 % (0-2); EOSINOPHILS ABSOLUTE AUTO 0.23 K/mm3 (0.00-0.68); EOSINOPHILS PERCENT AUTO 2 % (0-6); Hematocrit 33.6 % (33.0-51.0); Hemoglobin 10.9 g/dL (11.5-16.0); IMMATURE GRAN ABSOLUTE AUTO 0.08 K/mm3 (0.00-0.10); IMMATURE GRAN PERCENT AUTO 1 % (0-1); LYMPHOCYTES ABSOLUTE AUTO 2.12 K/mm3 (0.84-5.20); LYMPHOCYTES PERCENT AUTO 14 % (21-46); MONOCYTES ABSOLUTE AUTO 1.09 K/mm3 (0.16-1.47); MONOCYTES PERCENT AUTO 7 % (4-13); Mean Corpuscular HGB 30.4 pg (26.0-34.0); Mean Corpuscular HGB Conc 32.4 g/dL (31.5-36.5); Mean Corpuscular Volume 94 fL (80-100); Mean Platelet Volume 10.3 fL (9.1-12.4); NEUTROPHILS ABSOLUTE AUTO 12.14 K/mm3 (1.96-9.15); NEUTROPHILS PERCENT AUTO 77 % (41-73); Platelet Count 308 K/mm3 (150-400); RDW Coefficient Variation 14.2 % (11.7-14.2); RDW Standard Deviation 46.9 fL (35.1-46.3); Red Blood Cell Count 3.59 M/mm3 (3.80-5.20); White Blood Cell Count 15.72 K/mm3 (4.00-11.30)
[2021-04-06 04:37] LABS: Anion Gap 4 mmol/L (6-16); Blood Urea Nitrogen 17 mg/dL (8-24); CO2, Blood 28 mmol/L (21-32); Calcium, Blood 8.1 mg/dL (8.5-10.1); Chloride, Blood 107 mmol/L (98-108); Creatinine, Blood 0.43 mg/dL (0.40-1.00); Glomerular Filtration Rate >60 (60-); Glucose, Blood 160 mg/dL (70-99); Potassium, Blood 3.6 mmol/L (3.5-5.5); Sodium, Blood 139 mmol/L (136-145)
--- NOTE | 2021-04-06 07:10 | NUR ---
SHIFT SUMMARY PT REMAINS INTUBATED AND SEDATED. VENT SETTINGS PC 18, PEEP 5, FIO2 40% WITH SPO2 >95%. LUNGS CLEAR WITH DIMINISHED BASES, SCANT AMOUNT OF SECRETIONS VIA TRACH. VSS, HR 60-70'S SINUS ON MONITOR, SBP WITH MAP >65 ON LEVO. INFUSION CURRENTLY INFUSING: PROPOFOL @ 30 MCG/KG, PRECEDEX @ 1.0 MCG/KG, LEVO @ 3 MCG/KG, AND FENTANYL @ 50 MCG/HR. PT WITHDRAWING FROM PAINFUL STIMULI, NOT FOLLOWING COMMANDS THIS SHIFT. DIANE DRAINING CLEAR YELLOW URINE TO GRAVITY, NO BM THIS SHIFT. ACTIVE BOWEL TONES T/O SHIFT.
--- NOTE | 2021-04-06 08:42 | NUR ---
ASSUMED CARE PT. REMAINS SEDATED AND ON VENT THIS AM. PLANS TO TRANSITION PT TO AIRVO THIS AFTERNOON. LS COARSE T/O WITH THIN WHITE SECREATIONS FROM ETT. PT. DOBHOFF BROKEN AT HUB AND LEAKING, REPLACED WITH DOBHOFF MEASURING AND TAPED AT 75. REPEAT XRAY DONE THIS AM. DIANE IN PLACE DRAINING TO GRAVITY. PT. AFEBRILE THIS AM. VSS.
--- NOTE | 2021-04-06 12:59 | NUR ---
PT UP TO CHAIR WITH LIFT CHANGED TO SPONT PS 5, PEEP 5 FIO2 40%. PT. SEDATION TITRATED DOWN. PT. ABLE TO KING HOWEVER VERY WEAK. BILAT WRIST RESTRAINTS REMAIN IN PLACE FOR SAFETY. BED BATH GIVEN. PICC DRESSING CHANGED TO BRIAN.
--- NOTE | 2021-04-06 13:42 | NUR ---
PT SWITCHED TO AIRVO 35L 45% FIO2. TOLERATING WELL. FAMILY UPDATED.
--- NOTE | 2021-04-06 14:20 | NUR ---
LEVOPHED PLACED ON STAND BY PT. LOOKING AROUND ROOM HOWEVER ONLY OCCASIONALLY FOLLOWS COMMANDS. PT. REMAINS ON PRECEDEX GTT TITRATED TO 1.4 AT THIS TIME TO ASSIST WITH AGGITATION. PT. PULLING AGAINST RESTRAINTS AND SHAKING HEAD SIDE TO SIDE. PT. LEVOPHED GTT TITRATED OFF, CURRENTLY ON STAND BY. PT KICKING LEGS OFF OF CHAIR. INNER CANNULA CHANGED ON TRACH TODAY BY RT. PT REMAINS ON AIRVO. VSS AT THIS TIME.
--- NOTE | 2021-04-06 16:16 | NUR ---
PT MORE ALERT IN ROOM, ATTEMPTED TO PROVIDE ORAL CARE, PUT TURNING AWAY AND REFUSING TO OPEN MOUTH. EXPLAINED TO PT. REASON FOR CARE HOWEVER PT CONTINUES TO TURN AWAY AND CLOSE MOUTH. ONLY FOLLOWING SOME COMMANDS. CONTINUES TO PULL AT RESTRAINTS AND KICK LEGS OFF OF CHAIR AFTER THEY ARE REPLACED. VSS REMAIN STABLE.
--- NOTE | 2021-04-06 18:19 | NUR ---
SHIFT SUMMARY PT. REMAINS UP IN BEDSIDE CHAIR ON AIRVO. PT. BECOMES AGGITATED AT TIMES SHAKING HEAD, AND PULLING AGAINST RESTRAINTS. CALMS WITH VERBAL REASSURANCE AT TIMES. PT REFUSING TO MAKE EYE CONTACT AND REFUSING SOME CARE SUCH ORAL CARE. CONTINUES TO THROW LEGS OFF OF CHAIR HOWEVER DOES FOLLOW SOME COMMANDS. PT. REMAINS ON PRECEDEX AND FENTANYL INFUSION. PROPOFOL AND LEVOPHED REMAIN ON STAND BY. PT. GIVEN 5MG IM ZYPREXA PER DR. EVANS FOR CONTINUED AGGITATION. WHEN PT BECOMES AGGITATED RR AND HR INCREASE. PT. OXYGEN TITRATED T/O SHIFT ON AIRVO CURRENTLY AT 50% DUE TO AGGITATION BUT WAS DOWN TO 35% WHEN CALM. INNER CANNULA CHANGED TODAY. THICK CRANDALL SECRTIONS FROM TRACH, PT HAS STRONG PRODUCTIVE COUGH.
--- NOTE | 2021-04-06 19:30 | NUR ---
ASSUMED CARE PATIENT SITTING UP IN CHAIR ALERT. VENTILATED VIA TRACH ON AIRVO @ 35LPM 58% FIO2 WITH SPO2>90%. SINUS TACH W/ RATE IN 120'S-130'S. TF INF VIA DOBHOFF @ 35ML/HR. PRECEDEX INF @ 1.4MCG/KG/HR, NS TKO, AND FENTANYL @ 50MCG/HR; PROPOFOL ON SB AT THIS TIME. WILL CONTINUE TO MONITOR.
[2021-04-07 03:52] LABS: BASOPHILS ABSOLUTE AUTO 0.02 K/mm3 (0.00-0.23); BASOPHILS PERCENT AUTO 0 % (0-2); EOSINOPHILS ABSOLUTE AUTO 0.17 K/mm3 (0.00-0.68); EOSINOPHILS PERCENT AUTO 1 % (0-6); Hemoglobin 10.5 g/dL (11.5-16.0); IMMATURE GRAN ABSOLUTE AUTO 0.06 K/mm3 (0.00-0.10); IMMATURE GRAN PERCENT AUTO 1 % (0-1); LYMPHOCYTES PERCENT AUTO 11 % (21-46); MONOCYTES ABSOLUTE AUTO 0.74 K/mm3 (0.16-1.47); MONOCYTES PERCENT AUTO 6 % (4-13); Mean Corpuscular HGB 30.5 pg (26.0-34.0); Mean Corpuscular HGB Conc 32.8 g/dL (31.5-36.5); Mean Corpuscular Volume 93 fL (80-100); Mean Platelet Volume 10.2 fL (9.1-12.4); NEUTROPHILS ABSOLUTE AUTO 9.93 K/mm3 (1.96-9.15); NEUTROPHILS PERCENT AUTO 81 % (41-73); Platelet Count 281 K/mm3 (150-400); RDW Coefficient Variation 14.3 % (11.7-14.2); RDW Standard Deviation 47.3 fL (35.1-46.3); Red Blood Cell Count 3.44 M/mm3 (3.80-5.20); White Blood Cell Count 12.22 K/mm3 (4.00-11.30)
[2021-04-07 04:08] LABS: Anion Gap 4 mmol/L (6-16); Blood Urea Nitrogen 16 mg/dL (8-24); Bun/Creatinine Ratio 40.6 (12.0-20.0); CO2, Blood 28 mmol/L (21-32); Calcium, Blood 7.9 mg/dL (8.5-10.1); Chloride, Blood 108 mmol/L (98-108); Creatinine, Blood 0.39 mg/dL (0.40-1.00); Glomerular Filtration Rate >60 (60-); Glucose, Blood 171 mg/dL (70-99); Magnesium, Blood 1.8 mg/dL (1.6-2.4); Phosphorus, Blood 2.9 mg/dL (2.5-4.9); Sodium, Blood 140 mmol/L (136-145)
--- NOTE | 2021-04-07 06:32 | NUR ---
SHIFT SUMMARY PATIENT REMAINED VENTILATED VIA TRACH USING AIRVO 35LPM 53% FIO2 W/ SPO2 MID TO HIGH 90'S. PATIENT EXHIBITED FREQUENT PRODUCTIVE COUGH THAT WOULD RESOLVE W/ SUCTIONING. NO CHANGES TO GTTS DURING SHIFT. PATIENT HEART RATE REMAINED ELEVATED MOST OF SHIFT IN 130'S DESPITE ATIVAN IV; HEART RATE DECREASED TO LOW 100'S AFTER LAST DOSE OF ATIVAN PRIOR TO TRACH CARE. NO OTHER CHANGES DURING SHIFT. WILL CONTINUE TO MONITOR UNTIL REPORT GIVEN TO ONCOMING RN.
--- NOTE | 2021-04-07 08:20 | NUR ---
ASSESSMENT- PT WITH EYES OPEN, SHAKING HEAD SIDE TO SIDE, MOVES ALL EXTREMITIES. DOESN'T FOLLOW DIRECTIONS OR COMMANDS. EXPLAINED PLAN OF CARE, REASSURANCE GIVEN. HEARTRATE 100'S SINUS AT REST, INCREASES TO 110'S WITH ANY STIMULATION. LUNGS CLEAR BUT DIMINISHED BIBASILAR. TRACH SECURE-CONGESTED COUGH. SUCTIONED SCANT SECRETIONS, TRACH SITE CLEANED, OLD DRAINAGE. SBP WITH MAP > 65. ABDOMEN SOFT, DISTENDED WITH BOWEL SOUNDS. TF JEVITY INCREASED TO GOAL RATE 45 CC/HR VIA DOBHOFF. UO VIA DIANE. IV LEFT ARM PICC DI, RIGHT ARM POWER GLIDE DI. BILATERAL WRIST RETRAINTS FOR SAFETY. PRECEDEX FOR SEDATION AT 1.4 MCG/KG/HR. NS TKO, FENTANYL GTT AT 50 CG/HR.
--- NOTE | 2021-04-07 09:55 | NUR ---
PT'S DAUGHTER CALLED, UPDATED. PT WITH EPISODE OF COUGHING, RESTLESSNESS, REPOSITIONED, OXYGEN NEEDED TO BE INCREASED FOR LOW SATURATIONS WITH IMPROVEMNET. NOW 40 L/MIN 55%. SINUS TACH 110'S.
--- NOTE | 2021-04-07 11:16 | NUR ---
PT MORE AGITATED, RX WITH ATIVAN WITH IMPROVMENT. USED LIFT TO TRANSFER TO CHAIR, TOLERATED WELL. HEARTRATE IMPROVED AFTER ATIVAN FROM HIGH 120'S TO 110'S. DR. EVANS HERE-UPDATED.
--- NOTE | 2021-04-07 12:05 | NUR ---
PT WITH LESS RESTLESSNESS, STILL WILL MOVE HEAD SIDE TO SIDE. OPENS EYES TO NAME, WILL FOLLOW BRIEF DIRECTIONS TO MOVE. BLOOD SUGAR ELEVATED-COVERED PER ORDERS. TOLERATING HIGH FLOW OXYGEN
--- NOTE | 2021-04-07 16:23 | NUR ---
PT WITH STABLE VS. SEDATE, OPENS EYES TO NAME. NO OTHER RESPONSE. RESPIRATIONS EASY, UNLABORED. DECREASING PRECEDEX
--- NOTE | 2021-04-07 17:45 | NUR ---
PT AWAKE NOW, NO RESPONSE TO COMMANDS. RESTLESS IN CHAIR. FREQUENT COUGHING WITH DECREASED SATURATIONS. LIDOCAINE RESPIRATORY TREATMENT GIVEN. HEARTRATE UP TO 140'S WITH COUGHING, NOW DECREASED TO 120'S. PRECEDEX BACK TO 1.4 MCG/KG/MIN. LINES INTACT. UP IN CHAIR, REPOSITIONED FOR COMFORT AND TO RELIEVE ANY PRESSURE. CONTINUE TO MONITOR
--- NOTE | 2021-04-07 18:44 | NUR ---
PT AGITATED, RESTLESS, KICKING LEGS OFF CHAIR. HEARTRATE UP TO 160'S, FREQUENT COUGHING, SATURATIONS DECREASED TO 80'S. IMPROVEMENT WITH INCREASE OXYGEN, IM ZYPREXA GIVEN. REASSURANCE GIVEN. DR. RICKS HERE.
--- NOTE | 2021-04-07 19:10 | NUR ---
PT COMFORTABLE NOW, RESP RATE 20-30'S. SINUS TACH 130'S. NO DISTRESS. SATURATIONS STABLE WITH FIO2 AT 60%.
--- NOTE | 2021-04-07 19:48 | NUR ---
[facility] care. Report recieved from [place]ina RN. PT is resting on recliner in room. Pt on airvo via trach: 40L/min, 65% Fi02. Pt has dobhoff NG in place, Jevity running at goal rate 45 ml/hr. PICC in BRIAN, midline IV in ANDREZ. IV pump settings: Precedex 1.4 mcg/kg/hr, Fentanyl MANAGER SUPPORT 50 mcg/hr, NS 10 ml/hr. Loja catheter in place, draining mc urine. Moved pt into bed. No other acute needs noted, will continue to monitor.
[2021-04-08 05:33] LABS: BASOPHILS ABSOLUTE AUTO 0.03 K/mm3 (0.00-0.23); BASOPHILS PERCENT AUTO 0 % (0-2); EOSINOPHILS ABSOLUTE AUTO 0.56 K/mm3 (0.00-0.68); EOSINOPHILS PERCENT AUTO 6 % (0-6); Hematocrit 31.6 % (33.0-51.0); Hemoglobin 10.1 g/dL (11.5-16.0); IMMATURE GRAN ABSOLUTE AUTO 0.04 K/mm3 (0.00-0.10); IMMATURE GRAN PERCENT AUTO 0 % (0-1); LYMPHOCYTES ABSOLUTE AUTO 2.02 K/mm3 (0.84-5.20); LYMPHOCYTES PERCENT AUTO 21 % (21-46); MONOCYTES ABSOLUTE AUTO 0.91 K/mm3 (0.16-1.47); MONOCYTES PERCENT AUTO 10 % (4-13); Mean Corpuscular HGB 30.7 pg (26.0-34.0); Mean Corpuscular Volume 96 fL (80-100); Mean Platelet Volume 10.8 fL (9.1-12.4); NEUTROPHILS ABSOLUTE AUTO 5.93 K/mm3 (1.96-9.15); NEUTROPHILS PERCENT AUTO 63 % (41-73); Platelet Count 287 K/mm3 (150-400); RDW Coefficient Variation 14.3 % (11.7-14.2); RDW Standard Deviation 49.5 fL (35.1-46.3); Red Blood Cell Count 3.29 M/mm3 (3.80-5.20); White Blood Cell Count 9.49 K/mm3 (4.00-11.30)
[2021-04-08 06:08] LABS: Anion Gap 4 mmol/L (6-16); Blood Urea Nitrogen 16 mg/dL (8-24); Bun/Creatinine Ratio 41.6 (12.0-20.0); CO2, Blood 29 mmol/L (21-32); Calcium, Blood 8.3 mg/dL (8.5-10.1); Chloride, Blood 107 mmol/L (98-108); Creatinine, Blood 0.39 mg/dL (0.40-1.00); Glomerular Filtration Rate >60 (60-); Glucose, Blood 153 mg/dL (70-99); Potassium, Blood 3.7 mmol/L (3.5-5.5); Sodium, Blood 140 mmol/L (136-145)
--- NOTE | 2021-04-08 07:30 | NUR ---
Shift summary. Pt continues on airvo via trach, 40 L/min 70% Fi02. Dobhoff NG tube in place, tube feed running at goal rate, 45ml/hr. Pump settings: Propofol 40 mcg/kg/min, Precedex 1.4 mcg/kg/hr, Fentanyl LEGAL BILLING COORDINATOR 50 mcg/hr, NS 10ml/hr. Loja catheter in place, draining mc urine, 500 out this shift. Patient was restless throughout shift. Able to nod yes and no to questions intermittently. Patient has productive cough, thick white/griggs sputum noted. Report given to dayshift RN.
--- NOTE | 2021-04-08 08:30 | NUR ---
ASSESSMENT- PT AWAKE, ALERT, ANXIOUS, MOVING RESTLESSLY IN BED. REPOSITIONING FREQUENTLY. EYES OPEN, ABLE TO NOD HEAD TO FEW QUESTIONS, FOLLOWS SOME DIRECTIONS. HEARTRATE TACHY-UP TO 160'S WITH TACHYPNEA WITH ANXIETY. ABLE TO TALK WITH PT AND BRING RESP RATE DOWN. TRACH INTACT, COUGHING FREQUENTLY, WHITE SECRETIONS SUCTIONED. LUNGS WITH CRACKLES RIGHT SIDE, LEFT SIDE DIMINISHED. NO CREPITUS. BP STABLE. ABDOMEN SOFT WITH BOWEL SOUNDS. TUBE FEEDING VIA DOBHOFF. DIANE INTACT. IV INTACT-LEFT ARM PICC INTACT. RIGHT ARM POWER GLIDE INTACT. BILATERAL WRIST RESTRAINTS INTACT. DR LAINEZ HERE.
--- NOTE | 2021-04-08 09:12 | NUR ---
PT CALMER, ABLE TO CLOSE EYES, HEARTRATE STILL ELEVATED 130-140'S. SATURATIONS STABLE WITH FI02 AT 60%. ATTEMPT BEDPAN BUT NO RESULTS. PADS ON
--- NOTE | 2021-04-08 10:50 | NUR ---
PT VERY ANXIOUS AND RESTLESS, TACHYCARDIC, DR. LAINEZ HERE, ASSESSED PT. IM ZYPREXA HAS BEEN GIVEN, PRECEDEX AT 1.4 MCG/KG/HR. RX WITH ADDITIONAL FENTANYL FOR DISCOMFORT AND GRIMACING. ABLE TO FOLLOW SOME DIRECTIONS BUT POOR ATTENTION SPAN. LIFT UP TO CHAIR, STATES MORE COMFORTABLE OOB. DOES REACH FOR TUBES, BILATERAL WRIST RESTRAINTS ON. FREQUENT EXPLANATIONS REGARDING CARE AND TO HELP DECREASE ANXIETY. PT'S DAUGHTER CALLED-UPDATED
--- NOTE | 2021-04-08 12:59 | NUR ---
RESTLESSNESS SLIGHTLY BETTER BUT STILL CANNOT STOP MOVING. RX WITH ZYPREXA. IN CHAIR, HEARTRATE 110'S
--- NOTE | 2021-04-08 13:54 | NUR ---
REMAINS RESTLESS BUT MENTATION IMPROVED. ABLE TO FOLLOW MOST DIRECTIONS, GAVE THUMBS UP SIGNAL. DR. LAINEZ AT BEDSIDE. WILL ADJUST ANXIETY MEDS. BATH DONE
--- NOTE | 2021-04-08 18:10 | NUR ---
HAS IMPROVED MENTATION-COOPERATIVE, ABLE TO ASSIST WITH REPOSITIONING IN THE CHAIR. FOLLOWS DIRECTIONS. DOES STILL PULL AT LINES AND SOME RESTLESSNESS BUT BETTER. STILL SINUS TACH 120'130'S. BP STABLE. LINES INTACT, NO N/V, DENIES PAIN EXCEPT TRACH SITE WITH ANY MOVEMENT. LESS COUGHING EPISODES TODAY. HAS TOLERATED BEING UP IN CHAIR TODAY, WORKED WITH PHYSICAL THERAPIST. CONTINUE PRECEDEX AT 1.4 MCG/KG/HR AND FENTANYL CONTENT STRATEGIST AT 50 MCG/HR.
--- NOTE | 2021-04-09 00:38 | NUR ---
PT WAS ABLE TO COMMUNICATE WITH ME TO BE BOOSTED, USE THE BEDPAN, AND REQUESTED RESTRAINTS TO BE TAKEN OFF. PT WAS VERY UNCOMFORTABLE AND ANXIOUS. I REPORTED ALL THESE THINGS TO RN AND RN DENIED THE RESTRAINTS BEING REMOVED.
[2021-04-09 04:12] LABS: BASOPHILS ABSOLUTE AUTO 0.03 K/mm3 (0.00-0.23); BASOPHILS PERCENT AUTO 0 % (0-2); EOSINOPHILS ABSOLUTE AUTO 0.56 K/mm3 (0.00-0.68); EOSINOPHILS PERCENT AUTO 6 % (0-6); Hematocrit 32.8 % (33.0-51.0); Hemoglobin 10.4 g/dL (11.5-16.0); IMMATURE GRAN ABSOLUTE AUTO 0.04 K/mm3 (0.00-0.10); IMMATURE GRAN PERCENT AUTO 1 % (0-1); LYMPHOCYTES ABSOLUTE AUTO 1.55 K/mm3 (0.84-5.20); LYMPHOCYTES PERCENT AUTO 18 % (21-46); MONOCYTES ABSOLUTE AUTO 1.09 K/mm3 (0.16-1.47); MONOCYTES PERCENT AUTO 12 % (4-13); Mean Corpuscular HGB 30.1 pg (26.0-34.0); Mean Corpuscular HGB Conc 31.7 g/dL (31.5-36.5); Mean Corpuscular Volume 95 fL (80-100); Mean Platelet Volume 10.7 fL (9.1-12.4); NEUTROPHILS ABSOLUTE AUTO 5.52 K/mm3 (1.96-9.15); NEUTROPHILS PERCENT AUTO 63 % (41-73); Platelet Count 321 K/mm3 (150-400); RDW Coefficient Variation 14.1 % (11.7-14.2); RDW Standard Deviation 48.8 fL (35.1-46.3); Red Blood Cell Count 3.45 M/mm3 (3.80-5.20); White Blood Cell Count 8.79 K/mm3 (4.00-11.30)
[2021-04-09 04:30] LABS: Anion Gap 4 mmol/L (6-16); Blood Urea Nitrogen 12 mg/dL (8-24); Bun/Creatinine Ratio 31.2 (12.0-20.0); CO2, Blood 31 mmol/L (21-32); Calcium, Blood 8.7 mg/dL (8.5-10.1); Chloride, Blood 103 mmol/L (98-108); Creatinine, Blood 0.39 mg/dL (0.40-1.00); Glomerular Filtration Rate >60 (60-); Glucose, Blood 173 mg/dL (70-99); Potassium, Blood 3.9 mmol/L (3.5-5.5); Sodium, Blood 138 mmol/L (136-145)
--- NOTE | 2021-04-09 04:49 | NUR ---
Alert, oriented to self only, moves 4 extremities, pupils are equal and react to light bilateral. Restless in bed. Not pulling tubes and equipment out anymore - restrains were discontinued. Respiratory supported by Airvo to tracheostomy. Moderate amount of secretions. Saturations around 97%. Airvo settings: FiO2 50% AT 40/min. Hemodynamic stable w/o support. Systolic blood pressure between 120 to 150. Pulse in sinus tachycardia rhythm, around 120 bpm. Urine via goodman catheter. Normal output. Had a bowel movement. No calls asking about her well being, during the night.
--- NOTE | 2021-04-09 08:00 | NUR ---
[id number] pT. awake/follows commands. Agitated/pulls on tubes. Restr. reapplied. On airvo 40L/50%. Rt. in to chg to trach collar at 60%. Nigel. TF well. Pt. to chair via ceiling lift- remained in chair for 4 hrs. PT/OT worked with PT and was able to stand her 10-15 sec for the first time. Once PT. back to bed she turned on RT. and fell asleep and SAO2 immed up to 99%. SaO2 can run mid 80's when agitated. Sputum culture sent to lab.
--- NOTE | 2021-04-09 14:00 | NUR ---
Pt. sleeping quietly after IM zyprexa for increased agitation.
--- NOTE | 2021-04-09 16:53 | NUR ---
Summary- No acute chg in status. Has tolerated increased activity but SAO2 con't best when asleep. Status report given to daughter Amber.
--- NOTE | 2021-04-09 19:07 | NUR ---
pt up to chair today will follow for intermediate needs. will revalutated prognosis after pt and ot updates
--- NOTE | 2021-04-10 00:04 | NUR ---
ASSUMED PT CARE AT 1915 PT ON TRACH COLLAR WITH 10L OF OXYGEN; SPO2 >90%. PT IS ALERT TO SELF AND YEAR. SHE STATES SHE IS AT HER HOUSE; INFORMED HER THAT SHE IS AT THE HOSPITAL. PT BECOMES VERY FRUSTRATED TRYING TO COMMUNICATE WITH STAFF VIA WRITING ON PAPER AND "MOUTHING" WORDS. PT CONTINUES TO BE REASSURED AND ENCOURAGED TO CONTINUE TRYING. PT HAS BEEN SINUS TACH WITH HR 100-110. BP'S STABLE, SEE FLOWSHEET FOR TRENDS. PT HAS BEEN VERY RESTLESS IN BED; THEREFORE, BILATERAL SOFT WRIST RESTRAINTS REMAIN IN PLACE TO PROTECT NEWLY PLACED TRACH. PT UNDERSTANDS REASONING FOR RESTRAINTS. AT TIMES TRACH COLLAR WILL MOVE AWAY FROM TRACH AND PT WILL DROP OXYGENATION QUICKLY TO THE 70-80'S, WELL HR WILL INCREASE TO 140-160'S; HOWEVER, PT RECOVERS HER OXYGEN SATURATIONS FAIRLY QUICKLY ONCE PLACED BACK ON TRACH COLLAR. PT WAS ASSISTED UP TO BEDSIDE COMMODE WITH TWO PERSON ASSIST IN WHICH SHE HAD A LARGE, SOFT BM. DURING THIS TIME PT BECAME VERY TACHYPNEIC AND REQUIRED OXYGEN TO BE INCREASED TO 15L D/T OXYGENATION MAINTAINING IN THE LOW 80'S. PT ASSISTED BACK TO BED AND IS CURRENTLY RESTING COMFORTABLY. WILL CONTINUE TO MONITOR.
[2021-04-10 03:58] LABS: BASOPHILS ABSOLUTE AUTO 0.03 K/mm3 (0.00-0.23); BASOPHILS PERCENT AUTO 0 % (0-2); EOSINOPHILS ABSOLUTE AUTO 0.56 K/mm3 (0.00-0.68); EOSINOPHILS PERCENT AUTO 7 % (0-6); Hematocrit 28.6 % (33.0-51.0); Hemoglobin 9.3 g/dL (11.5-16.0); IMMATURE GRAN ABSOLUTE AUTO 0.04 K/mm3 (0.00-0.10); IMMATURE GRAN PERCENT AUTO 1 % (0-1); LYMPHOCYTES ABSOLUTE AUTO 2.04 K/mm3 (0.84-5.20); LYMPHOCYTES PERCENT AUTO 26 % (21-46); MONOCYTES ABSOLUTE AUTO 0.82 K/mm3 (0.16-1.47); MONOCYTES PERCENT AUTO 10 % (4-13); Mean Corpuscular HGB Conc 32.5 g/dL (31.5-36.5); Mean Corpuscular Volume 95 fL (80-100); Mean Platelet Volume 10.6 fL (9.1-12.4); NEUTROPHILS ABSOLUTE AUTO 4.41 K/mm3 (1.96-9.15); NEUTROPHILS PERCENT AUTO 56 % (41-73); Platelet Count 302 K/mm3 (150-400); RDW Coefficient Variation 14.1 % (11.7-14.2); RDW Standard Deviation 48.8 fL (35.1-46.3)
[2021-04-10 04:14] LABS: Albumin, Blood 2.5 g/dL (3.4-5.0); Anion Gap 4 mmol/L (6-16); Blood Urea Nitrogen 19 mg/dL (8-24); Bun/Creatinine Ratio 49.9 (12.0-20.0); CO2, Blood 31 mmol/L (21-32); Calcium, Blood 8.2 mg/dL (8.5-10.1); Chloride, Blood 104 mmol/L (98-108); Creatinine, Blood 0.38 mg/dL (0.40-1.00); Glomerular Filtration Rate >60 (60-); Glucose, Blood 185 mg/dL (70-99); Phosphorus, Blood 4.1 mg/dL (2.5-4.9); Potassium, Blood 3.9 mmol/L (3.5-5.5); Sodium, Blood 139 mmol/L (136-145)
--- NOTE | 2021-04-10 05:07 | NUR ---
END OF SHIFT SUMMARY PT HAS REMAINED ON TRACH COLLAR T/O SHIFT WITH 10L BLEED IN; OXYGEN SATURATIONS REMAIN >90%. THICK YELLOW SECRETIONS ARE ABLE TO BE COUGHED UP AND SUCTIONED. PT REMAINS ALERT AND ORIENTED AND ABLE TO FOLLOW COMMANDS. BECOMES RESTLESS AND AGITATED AT TIMES; THEREFORE, PT REMAINED IN BILATERAL SOFT WRIST RESTRAINTS TO PREVENT DISLODGING TRACH. PT MEDICATED WITH VALIUM AND ZYPREXA, WHICH ARE SLIGHTLY EFFECTIVE. PT REMAINS SINUS RHYTHM TO SINUS TACHYCARDIA WITH HR 90-130'S DEPENDENT ON RESTLESSNESS, WELL A TRACH COLLAR PLACEMENT. TRACH COLLAR WILL OCCASIONALLY MOVE OFF TO THE SIDE AND PT WILL DROP HER OXYGENATION TO THE LOW 80'S WHICH IS GENERALLY WHEN HER HR WILL INCREASE TO THE 130'S. JEVITY 1.2 CONTINUES AT GOAL OF 35 ML/HR WITH 30CC OF WATER FLUSHES Q4 HOURS. PT STARTED TRENDING BP'S DOWN T/O NIGHT WITH THE LOWEST SYSTOLIC NOTED IN THE 70'S. CALLED DR. KRUGER WITH ORDERS TO INITIATE A 1L BOLUS AND THEN TO CONTINUE NS AT 125ML/HR. DIANE CATHETER REMAINS PATENT AND DRAINING DARK, YELLOW URINE TO GRAVITY. WILL CONTINUE TO MONITOR UNTIL REPORT IS HANDED OFF TO ONCOMING RN.
--- NOTE | 2021-04-10 08:30 | NUR ---
INITIAL ASSESSMENT: PATIENT IS AWAKE SITTING UP IN BED WATCHING TV. PT IS ORIENTED TO SELF ONLY, SHE IS RESTRAINTED. SHE IS MOUTHING WORDS, BUT I CANNOT UNDERSTAND HER. SHE ATTEMPTS TO WRITE AND IT IS DIFFUCILT TO READ, SHE IS REASSURED BY REORIENTATION. PRECEDEX GTT INFUSING AT 1.4 MCG/KG/HR AND FENTANYL TILE MOLDER HAND CONTINUES TO INFUSE AT 50 MCG/HR. PT HAS 6.0 PERC TRACH WITH TRACH COLLAR 10L BLEED IN, OXYGEN STAURATIONS 96-98% WHEN THE PATIENT IS NOT TACHYPNEC OR COUGHING. PT HAS A COARSE PC WITH WHITE THICK SECRETIONS, PT SUCTIONED. BT+, PT WAS ABLE TO GET OOB TO BSC FOR BM LAST NIGHT PER NOC RN. DIANE CATH PATENT AND DRAINING CLEAR YELLOW URINE. DOBHOFF TO RIGHT NARE JEVITY TF AT GOAL RATE 35 ML/HR. VSS. AM MEDS GIVEN VIA DOBHOFF. PT REPOSISTIONED TO HER LEFT SIDE. CALL LIGHT IN REACH. WILL CONTINUE TO MONITOR.
--- NOTE | 2021-04-10 12:15 | NUR ---
UPDATE: PT WAS ABLE TO REST FOR A WHILE. SHE IS NOW OOB TO THE CHAIR WITH PCT AND PT. PT WAS A 2 PERSON MODERATE ASSIST. HER OXYGEN SATURATIONS DROPPED DOWN INTO THE 70S, BUT SHE RECOVERED NICELY. WRIST RESTRAINTS BACK IN PLACE. PT HAS BEEN DOWN GRADED TO PCU STATUS.
--- NOTE | 2021-04-10 12:45 | NUR ---
PT TRANSFERRED TO PCU 9 VIA RECLINER, REPORT GIVEN TO OLE LUJAN.
--- NOTE | 2021-04-10 14:28 | NUR ---
ASSUMED CARE: REPORT RECIEVED FROM CHEVY LUJAN. PT TRANSFERRED FROM ICU. TRACH IN PLACE WITH TRACH COLLAR FOR SUPPORT. PRECEDEX GTT AT 1.4 AT THIS TIME. BILATERAL WRIST RESTRAINTS DUE TO BEING VERY GRABBY TO DOBHOFF/DIANE ETC. SEEMS ANXIOUS. SPOKE WITH DR LAINEZ REGARDING ISOLATION WHO STATED TO SPEAK WITH INFECTION CONTROL. IC STATES THAT SINCE PT IS NOT ON ACTIVE TREATMENT FOR COVID BESIDES TITRATION OF STEROID AND MORE THAN 20 DAYS OUT FROM INITIAL DIAGNOSIS, CAN BE REMOVED FROM ISOLATION. DOBHOFF CLAMPED FOR BOLUS FEEDS, INSTRUCTIONS PER DIETARY. SPEECH THERAPY AT BEDSIDE AND RT ASSISTING WITH PLACEMENT OF PASSEY MEUIR VALVE. STAFF AT BEDSIDE. NO ACUTE NEEDS AT THIS TIME.
--- NOTE | 2021-04-10 19:17 | NUR ---
SHIFT SUMMARY: PT TRANSFERRED FROM ICU AND HAS BEEN ON TRACH COLLAR AT 60%. STARTS TO COUGH THICK YELLOW SECRETIONS REQUIRING SUCTION AND DESATURATES, NEEDING SEVERAL MINUTES TO RECOVER. PRECEDEX GTT AT 1.4 DUE TO HR BEING IN 130S. CALL TO DR LAINEZ REGARDING THIS AND GOT ORDER FOR EKG. EKG SHOWED SINUS TACH SO ADJUSTED ANXIETY MEDS. PT 2 ASSIST TO BSC AND BED. MEDICATING FOR ANXIETY NEEDED.
--- NOTE | 2021-04-10 19:30 | NUR ---
PATIENT RESTLESS AND COUGHING, TRACH MIDLINE WITH TRACH COLLAR IN PLACE BIOX DOWN TO LOW 80'S WITH COUGH. TRACH SUCTIONED OBTAINING WHITE SPUTUM. PRECEDEX 1.4 MCG AND FENTANYL 50 MCG/HR TO HELP PATIENT RELAX AND PIOTR TRACH. PATIENT MORE RELAXED AFTER SUCTIONING. PLACED ON 2ND MONITOR IN ROOM AND ASSISTED WITH POSITIONING IN BED. DOBBHOFF IN PLACE AND CLAMPED, RECEIVING BOLUS FEEDINGS.
--- NOTE | 2021-04-11 01:32 | NUR ---
PATIENT AWAKE AND RESTLESS, WANTING TO HAVE A BM. HEART RATE UP 150'S, RESP UP TO 40'S HR UP AND BIOX DOWN TO LOW 80'S. SUCTION MOD AMT OF WHITE SPUTUM, OXYGEN INCREASED TO 60% PRECEDEX INCREASED BACK UP TO 1.4MCG AND PATIENT ABLE TO HAVE MEDIUM SOFT FORMED BROWN BM ON BEDPAN. PATIENT CONTINUES TO FEEL RESTLESS RESP 30'S BIOX 93% 12L 60% TRACH COLLAR. HEART RATE 114.
--- NOTE | 2021-04-11 06:30 | NUR ---
SUMMARY PATIENT SLEEPING OFF AND ON T/O NIGHT WITH TRACH COLLAR IN PLACE WITH FIO2 40% SUCTIONING WHITE SPUTUM OCCASIONALLY, STRONG PRODUCTIVE COUGH. PRECEDEX 1.4MCG CONTINUES, FENTANYL 50 MCG/HR CONTINUES. EASILY ANXIOUS WHEN AWAKE, ATTEMPTING TO COMMUNICATE WITH COMMUNICATION BOARD AND WITH MOUTHING WORDS. PATIENT ABLE TO REPOSITION SELF IN BED FOR COMFORT. DOBHOFF REMAINS IN PLACE FOR BOLUS FEEDINGS AND MEDS. HAD ISSUES WITH LEAKING AT CONNECTION PORT TWICE DURING THE NIGHT.
--- NOTE | 2021-04-11 07:14 | NUR ---
ASSUMED CARE: PT RESTING QUIETLY AT THIS TIME. PRECEDEX AT 1.4 MCG/KG. VSS AT THIS TIME. FENTANYL CITY MAINTENANCE MANAGER IN PLACE. DOBHOFF CLAMPED FOR BOLUS FEEDS. NO ACUTE NEEDS OR CONCERNS AT THIS TIME.
--- NOTE | 2021-04-11 18:06 | NUR ---
SHIFT SUMMARY: PT VARIED FROM TRACH COLLAR AT 60% TO AIRVO AT 20L WITH 32% FIO2. PT'S ANXIETY CAUSED AN INCREASE IN HR AND RESPIRATIONS AND DROP IN SATURATIONS AT TIMES. PT HAS TO BE TALKED DOWN WHEN THIS OCCURS. PRECEDEX GTT AT 1.4MCG/KG. S.O. AT BEDSIDE TODAY AND IS ASSISTING WITH ANXIETY. SPEECH CAME TO SEE PT AND PRACTICED WITH PASSEY MEUIR VALVE BUT DOES NOT WANT PT TO USE WITHOUT SUPERVISION OF RT OR ST. NO FURTHER NEEDS OR CONCERNS AT THIS TIME.
--- NOTE | 2021-04-11 20:15 | NUR ---
PATIENT RESTLESS AND ANXIOUS. STRONG DRY COUGH, SUCTIONING SMALL AMT OF WHITE SPUTUM VIA TRACH. AIRVO IN PLACE 20L FIO2 INCREASED TO 92% DUE TO DROP IN BIOX WITH PATIENTS ANXIETY. ABLE TO PUMP SERVICER SUPERVISOR PATIENT TO SLOW BREATHING DOWN, WITH RELAXING BIOX UP TO 100% AND HR BACK DOWN FROM 120'S. PATIENT ABLE TO MOUTH WORDS AND MAKE NEEDS KNOWN, EASILY FRUSTRATED. PRECEDEX 1.4 MCG, AND FENTANYL 50 MCG CONTINUE. DOBHOFF TO LEFT NARE FOR MEDS AND BOLUS FEEDINGS.
--- NOTE | 2021-04-12 05:29 | NUR ---
AT 0439 PATIENT EXTREMELY ANXIOUS USING SUCTION YANKAUER DEEP IN HER MOUTH AND CHOKING SELF. HR UP TO 140-170'S PATIENT REMINDED THAT NURSING OR RT WILL NEED TO SUCTION HER TRACH, ABLE TO SUCTION MOD AMT OF BLOOD TINGED SPUTUM WITH ONE WHITE PLUG REMOVED. PATIENT HAVING A DIFFICULT TIME REMAINING STILL FOR SUCTIONING. PATIENT MEDICATED WITH ATIVAN, PRECEDEX AND FENTANYL DRIPS CONTINUE. PATIENT NOW RESTING QUIETLY HR 89 BP 113/76 RESP 20 FIO2 100% WITH AIRVO 30L FIO2 82% TO TRACH.
--- NOTE | 2021-04-12 07:30 | NUR ---
ASSUMED CARE: PT RESTING IN BED WITH PRECEDEX AT 1.4MCG/KG. TRACH TO AIRVO AT 30L AND 35% FIO2. TF VIA BOLUS. SINUS TACH AT LOW 100S AT THIS TIME. NO ACUTE NEEDS OR CONCERNS AT PRESENT
--- NOTE | 2021-04-12 09:00 | NUR ---
ATTEMPTED TO DISCONTINUE PRECEDEX BUT WITHIN 20 MINUTES PT IMMEDIATELY HAD PANIC ATTACK AND WAS DIFFICULT TO CALM. TOOK SEVERAL MINUTES OF PT REQUIRING BEING COACHED ON DEEP BREATHING AND CALMING TECHNIQUES. PRECEDEX RESTARTED AT 1.4MCG/KG.
--- NOTE | 2021-04-12 18:35 | NUR ---
SHIFT SUMMARY: PT HAS BEEN ON AIRVO T/O DAY, CURRENTLY ON 60L WITH 55% FIO2. GETS VERY ANXIOUS AND DESATURATES AND BECOMES TACHYCARDIC. DISCUSSED WITH BUSINESS PARTNER WHO WANTED PSYCH CONSULT TO ASSIST WITH MEDICATIONS FOR PANIC ATTACKS. PRN ATIVAN GIVEN X1 THIS SHIFT. SPEECH CONTINUES TO ASSIST WITH SWALLOW PRACTICE AND EVALUATES DAY TO DAY. FAMILY GIVEN UPDATES. NO FURTHER NEEDS AT THIS TIME.
--- NOTE | 2021-04-12 19:10 | NUR ---
ASSUMPTION OF CARE RECEIVED REPORT FROM TATI LUJAN. ASSUMED CARE OF PATIENT. PATIENT WITH EYES CLOSED, EASILY AWAKENS. VITALS STABLE. TRACH SECURED WITH HIGH FLOW OF 60% IN PLACE. 02 SATS 100%. WILL REVIEW ORDERS AND TREAT PRESCRIBED.
--- NOTE | 2021-04-12 20:59 | NUR ---
REPORT REPORT GIVEN TO JUANITA LUJAN.
--- NOTE | 2021-04-13 02:01 | NUR ---
DOBHOFF PER REPORT, DOBHOFF HAD BEEN DIFFICULT TO FLUSH. PRESSURE IN TUBING ENOUGH TO POP END CAPS OFF WHEN FLUSHING ON DAY SHIFT. RAJENDRA RN ATTEMPTED TO FLUSH WITH MEDS. AFTER GETTING SOME MEDS FLUSHED DOWN, DOBHOFF CEASED TO FLUSH. THIS RN ATTEMPTED PULSATILE FLUSHING TO NO EFFECT. ATTEMPTED TO INFUSE PEPSI INTO TUBING TO AID WITH EATING AWAY AT CLO, NO EFFECT. DOBHOFF PULLED. NEW ONE PLACED. CXR SHOWED NEED FOR DOBHOFF TO BE ADVANCED ANOTHER 2-3 INCHES TO ALLOW PASING FROM STOMACH TO INTESTINE. ADVANCED. TAPED DOWN. STYLET PULLED. PT BEGAN DRY HEAVING AND PRESENTED EXTREMELEY ANXIOUS. THIS RN ATTEMPTED TO CALM PATIENT DOWN. PT REACHED TO THE BACK OF HER THROAT AND PULLED DOBHOFF OUT OF STOMACH AND TRIED TO PULL THE OTHER SECTION THROUGH THE NOSE. THIS RN AIDED PT AND PULLED THE TUBING OUT CORRECTLY FROM THE NOSE. NAUSEA RECEDED. DOBHOFF PLACEMENT TO BE DELAYED UNTIL FURTHER NOTICE.
--- NOTE | 2021-04-13 02:11 | NUR ---
RESPIRATORY EVENT 0000 -POST DOBHOFF REMOVAL. PT PRESENTS SEVERELY ANXIOUS. RR >40. SATURATIONS DOWN TO 60%. THIS RN WITH PATIENT, HOLDING HAND, BREATHING/CALMING EXCERCISES BEING TALKED THROUGH. PT ABLE TO BRING SATS TO MID 80'S. 0020 PT DESATS BACK DOWN TO LOW 70'S. THIS RN TURNED PRECEDEX FROM 1.0 - 1.2. PT STILL WORKING ON BREATHING/CALMING EXCERCISES. STATES FEELING REALLY ANXIOUS STILL. RR >45. 0035 PRECEDEX UP TO 1.4. RT CALLED TO ROOM. OTHER STAFF IN ROOM. SPO2 <70%. AIRVO AT 60L 95%. TRACH COLLAR OVER TOP BEING HELD BY STAFF. 0100 - ORDERS RECEIVED FROM PIYUSH. ATIVAN 2MG IV ADMINISTERED. RT TRACH SUCTIONED PT. INNER CANNULA CHANGED OUT. HEAT TURNED UP TO AID WITH SECRETION EXPECTORATION. THICK SPUTUM OUTPUT WITH SUCTION. 0110 - SPO2 NOW TO 92%. RR AROUND 24. PT RESTING. BP/HR STABLE WITH PRECEDEX GTT @ 1.4
--- NOTE | 2021-04-13 05:44 | NUR ---
SHIFT SUMMARY SEE PREVIOUS NOTES THIS SHIFT. PT ALERT, ON PRECEDEX GTT, STARTED AT 1.0, NOW AT 1.4. REMAINS SR/ST. BP STABLE. SINCE RESPIRATORY EVENT AND DESATS INTO LOW 70'S, PT NOW WITH SPO2 >95%, ON 60L 70%. LUNGS COARSE/DIM T/O. DOBHOFF PULLED, PLACED, AND THEN PULLED. REMAINS OUT. DIANE PATENT AND DRAINING. FENTANYL PROJECT MANAGEMENT INSTRUCTOR INFUSING 50MCGS/HR. REMAINS NPO, AWAITING TRIAL WITH JACQUIE KLEIN TODAY. ANDREZ PG AND BRIAN PICC PATENT/SECURED. OTHERWISE, PT RESTING IN ROOM POST RESPIRATORY INCIDENT.
--- NOTE | 2021-04-13 08:08 | NUR ---
TRACH EXCHANGE PT HYPOXIC 60'S-70'S, COUGHING CRANDALL BLOOD STREAKED SPUTUM FROM TRACH TUBE. REPOSITIONING AND TRACH SUCTIONING ATTEMPTED, PT REMAINS HYPOXIC. HR 130, RR 40'S AND SHALLOW. RT AT BEDSIDE, ATTEMPTED TO ADJUST AIRVO SETTINGS WITHOUT SUCCESS. DR. LAINEZ AT BEDSIDE, TRACH EXCHANGED FOR A SIZE 6 PERC CUFFED TRACH, PT THEN PLACED ON VENTILLATOR PS 14/8, FIO2 100%. TRACH SUCTIONED, ATIVAN ADMINISTERED. PT NOW RESTING, RR 30'S, SPO2 92%. CXR COMPLETED.
--- NOTE | 2021-04-13 09:22 | NUR ---
Pt was extremely anxious, hypoxic and required to be put back on ventilator this morning. She was given ativan at that time, and is also on the precedex gtt at 1.4 mcg/kg/hour. Vent settings at present PEEP 7.8-8.0; FiO2 80%, tital volume 287-321 at this time.
--- NOTE | 2021-04-13 12:07 | NUR ---
BLOOD PRESSURE 89/56. PRECEDEX GTT DECREASED TITRATED DOWN FURTHER. NOW AT 0.7 MCG/KG/HR
--- NOTE | 2021-04-13 12:50 | NUR ---
Confirmation by Amber Rebolledo RN with imaging that dobhoff is presently in correct placement. Tube feeding resumed at this time, per orders.
--- NOTE | 2021-04-13 15:23 | NUR ---
Pt suddenly became very anxious, agitated, face, neck and chest are flushed and she stated she felt very hot. Boosted up in bed, fan provided, and cool cloths to her face, forehead and neck for relief. Spo2 decreased to 70s during this episode of anxiety requiring 100% fio2 for 2 minute periods, twice. Pt continued to exhibit anxiety, heart rate 150-160 bpm, and zyprexa sublingually was administered as well as 1 mg IV ativan. SPo2 slowly improved, but not consistently holding greater than 85%. RT called. Fio2 increased gradually to 70% to maintain spo2 at least 87-88%. Heart rate 137, pt appears relaxed, respirations 44/minute on ventilator.
--- NOTE | 2021-04-13 15:53 | NUR ---
tYLENOL GIVEN, COOLING MEASURES: COOL CLOTHS TO FOREHEAD, ARMPITS, ICE PACKS TO TORSO BILATERALLY
[2021-04-13 16:37] LABS: BASOPHILS ABSOLUTE AUTO 0.05 K/mm3 (0.00-0.23); BASOPHILS PERCENT AUTO 1 % (0-2); EOSINOPHILS ABSOLUTE AUTO 0.36 K/mm3 (0.00-0.68); EOSINOPHILS PERCENT AUTO 5 % (0-6); Hematocrit 24.6 % (33.0-51.0); Hemoglobin 7.9 g/dL (11.5-16.0); IMMATURE GRAN ABSOLUTE AUTO 0.06 K/mm3 (0.00-0.10); IMMATURE GRAN PERCENT AUTO 1 % (0-1); LYMPHOCYTES ABSOLUTE AUTO 1.76 K/mm3 (0.84-5.20); LYMPHOCYTES PERCENT AUTO 22 % (21-46); MONOCYTES ABSOLUTE AUTO 0.78 K/mm3 (0.16-1.47); MONOCYTES PERCENT AUTO 10 % (4-13); Mean Corpuscular HGB 30.7 pg (26.0-34.0); Mean Corpuscular HGB Conc 32.1 g/dL (31.5-36.5); Mean Corpuscular Volume 96 fL (80-100); Mean Platelet Volume 10.5 fL (9.1-12.4); NEUTROPHILS ABSOLUTE AUTO 4.94 K/mm3 (1.96-9.15); NEUTROPHILS PERCENT AUTO 62 % (41-73); Platelet Count 308 K/mm3 (150-400); RDW Coefficient Variation 14.3 % (11.7-14.2); RDW Standard Deviation 50.1 fL (35.1-46.3); Red Blood Cell Count 2.57 M/mm3 (3.80-5.20); White Blood Cell Count 7.95 K/mm3 (4.00-11.30)
[2021-04-13 16:55] LABS: Albumin, Blood 1.9 g/dL (3.4-5.0); Anion Gap 4 mmol/L (6-16); Blood Urea Nitrogen 11 mg/dL (8-24); Bun/Creatinine Ratio 24.2 (12.0-20.0); CO2, Blood 29 mmol/L (21-32); Calcium, Blood 7.5 mg/dL (8.5-10.1); Chloride, Blood 105 mmol/L (98-108); Creatinine, Blood 0.46 mg/dL (0.40-1.00); Glomerular Filtration Rate >60 (60-); Glucose, Blood 166 mg/dL (70-99); Phosphorus, Blood 3.6 mg/dL (2.5-4.9); Sodium, Blood 138 mmol/L (136-145)
[2021-04-13 17:01] LABS: Source, Urine Catheter
[2021-04-13 17:17] LABS: Appearance, Urine Clear (Clear); Bilirubin, Urine Neg (Neg); Blood, Urine 1+ (Neg); Color, Urine Yellow (P-Yellow); Glucose Qualitative, Urine Neg (Neg); Ketones, Urine 1+ (Neg); Leukocyte Esterase, Urine 1+ (Neg); Nitrite, Urine Neg (Neg); Protein, Urine 2+ (Neg); Specific Gravity, Urine 1.025 (1.003-1.022); Urobilinogen, Urine NORM (Normal)
[2021-04-13 17:18] LABS: Bacteria Few /hpf; Mucus Light (0-Heavy); Red Blood Cells, Urine 0-2 /hpf (0-2); Squamous Epithelial Cells Few /hpf (Few)
[2021-04-13 18:07] LABS: PO2 Arterial 46.2 mmHg (80-100); pH Blood Arterial 7.48 (7.35-7.45)
--- NOTE | 2021-04-13 18:15 | NUR ---
CALL FROM Paulo OLIVIER regarding critical spo2 on ABG; oxygen level was 46%. Fio2 turned up to 100% for 2 minutes, spo2 no2 91%. Fio2 on ventilator increased to 70% delivery.
[2021-04-14 03:30] LABS: Bicarbonate Venous 28.6 mmol/L (24.0-30.0); PCO2 Venous 45.5 mmHg (38-42); PO2 Venous 34.9 mmHg (38-42); pH Blood Venous 7.43 (7.34-7.37)
[2021-04-14 03:36] LABS: BASOPHILS ABSOLUTE AUTO 0.03 K/mm3 (0.00-0.23); BASOPHILS PERCENT AUTO 0 % (0-2); EOSINOPHILS ABSOLUTE AUTO 0.22 K/mm3 (0.00-0.68); EOSINOPHILS PERCENT AUTO 2 % (0-6); Hematocrit 26.4 % (33.0-51.0); Hemoglobin 8.3 g/dL (11.5-16.0); IMMATURE GRAN ABSOLUTE AUTO 0.06 K/mm3 (0.00-0.10); IMMATURE GRAN PERCENT AUTO 1 % (0-1); LYMPHOCYTES PERCENT AUTO 20 % (21-46); MONOCYTES ABSOLUTE AUTO 0.89 K/mm3 (0.16-1.47); MONOCYTES PERCENT AUTO 8 % (4-13); Mean Corpuscular HGB 30.3 pg (26.0-34.0); Mean Corpuscular HGB Conc 31.4 g/dL (31.5-36.5); Mean Corpuscular Volume 96 fL (80-100); Mean Platelet Volume 10.2 fL (9.1-12.4); NEUTROPHILS ABSOLUTE AUTO 7.86 K/mm3 (1.96-9.15); NEUTROPHILS PERCENT AUTO 70 % (41-73); Platelet Count 381 K/mm3 (150-400); RDW Coefficient Variation 14.2 % (11.7-14.2); RDW Standard Deviation 49.6 fL (35.1-46.3); Red Blood Cell Count 2.74 M/mm3 (3.80-5.20); White Blood Cell Count 11.26 K/mm3 (4.00-11.30)
[2021-04-14 03:59] LABS: Alanine Aminotransfer (ALT/SGP 38 U/L (12-78); Albumin, Blood 2.3 g/dL (3.4-5.0); Albumin/Globulin Ratio 0.6 (0.8-1.8); Alk Phos 79 U/L (50-136); Anion Gap 5 mmol/L (6-16); Aspartate Aminotrans (AST/SGOT 19 U/L (12-37); Bilirubin, Total 0.4 mg/dL (0.1-1.0); Blood Urea Nitrogen 8 mg/dL (8-24); Bun/Creatinine Ratio 18.6 (12.0-20.0); CO2, Blood 30 mmol/L (21-32); Calcium, Blood 8.4 mg/dL (8.5-10.1); Chloride, Blood 105 mmol/L (98-108); Creatinine, Blood 0.43 mg/dL (0.40-1.00); Globulin, Blood 4.1 g/dL (2.2-4.0); Glomerular Filtration Rate >60 (60-); Glucose, Blood 101 mg/dL (70-99); Magnesium, Blood 2.1 mg/dL (1.6-2.4); Phosphorus, Blood 3.6 mg/dL (2.5-4.9); Potassium, Blood 4.4 mmol/L (3.5-5.5); Sodium, Blood 140 mmol/L (136-145); Total Protein, Blood 6.4 g/dL (6.4-8.2)
--- NOTE | 2021-04-14 06:32 | NUR ---
SHIFT SUMMARY STARTED SHIFT WITH PT ON PRECEDEX GTT @ 0.7MCG AND FENTANYL PAPER CONE MAKER @ 50MLS/HR. PT LETHARGIC BUT ORIENTED. IN ST 100'S. BP STABLE. ON VENT TO TRACH, SPONTANEOUS, PRESSURE SUPPORT 10, PEEP 5, FIO2 70%. SPO2 >90%. DOBHOFF PLACED ON DAY SHIFT PATENT, MEDS HEAVILY DILUTED PRE ADMINISTRATION, PT TOLERATED TUBE FFEDING WELL. DIANE PATENT AND DRAINING. T/O SHIFT, PT HAS HAD MULTIPLE COUGHING FITS THAT LEAD INTO ANXIETY ATTACKS ULTIMATELY RESULTING INTO DESATURATIONS INTO HIGH 70'S AT TIMES, DESPITE HYPEROXYGENATING @ 100%. PRECEDEX GTT TITRATED UP AND DOWN TO MEET ANXIETY NEEDS BUT ALSO ALLOW FOR STABLE BP'S BP'S HAVE BECOME SOFT AT TIMES INTO THE 80'S FOR SBP, MAP>60. ATIVAN 1-2MGS IV GIVEN WELL SL ZYPREXA ADMINISTERED FOR ANXIETY, BP ALLOWING. ORDER FOR NEBULIZED LIDOCAINE OBTAINED Q8 TO TRY AND COUNTER THESE COUGHING FOTS BUT NOT SUPRESS THE EXPECTORATION OF MUCUS. THIS SEEMED TO HAVE AIDED IN SUPPRESSING A COUGHING FIT THIS SHIFT. 0600 CBG CHECK SHOWED CBG <70, 1/2 AMP D50 ADMINISTERED, CBG NOW >120. END OF SHIFT, FENTANYL PAPER CONE MAKER CONTINUES AT 50MCGS/HR. PRECEDEX AT 1.4MCGS, BP STABLE WITH SBP >100. PT RESTING PEACEFULLY. VENT SETTINGS REMAIN THE SAME.
[2021-04-14 13:44] LABS: Source, Urine Catheter
[2021-04-14 14:13] LABS: Appearance, Urine Clear (Clear); Bilirubin, Urine Neg (Neg); Blood, Urine 2+ (Neg); Color, Urine Yellow (P-Yellow); Glucose Qualitative, Urine Neg (Neg); Ketones, Urine Neg (Neg); Leukocyte Esterase, Urine Neg (Neg); Nitrite, Urine Neg (Neg); Protein, Urine 1+ (Neg); Urobilinogen, Urine NORM (Normal)
[2021-04-14 14:32] LABS: Bacteria Few /hpf; Mucus Mod (0-Heavy); Squamous Epithelial Cells Few /hpf (Few)
[2021-04-14 14:33] LABS: Hyaline Casts 0-2 /lpf (0-2)
--- NOTE | 2021-04-14 16:40 | NUR ---
END OF SHIFT SUMMARY: ASSUMED CARE OF PATIENT AT 0715 ON 04/14/2021. REPORT RECIEVED FROM NIGHT RN. PATIENT HAS BEEN HAVING PRECEDEX INFUSED THIS AM AT 1.4, WHICH VALERIA LUJAN AND I TITRATED DOWN TO .8, THEN .6, HOWEVER, PATIENT HAS BEEN MORE ALERT AND WITHOUT THE INCREASE RATE OF PRECEDEX AND MORE AGITATED, HAVING INCREASED COUGHING FITS. WE HAVE BEEN USING PRECEDEX AT .7-.8, WITH ADJUNCTIVE ATIVAN AROUND PRN 3 HOURS, AROUND 1700 HAD TO INCREASE PATIENTS PRECEDEX WILL TITRATE TOLERATED. THIS HAS SEEMED TO CALM HER ANXIETY ENOUGH FOR THE PATIENT TO HAVE DECREASE AGITATION AND REST AT TIMES. PATIENT DOSE CONTINUE TO WAKE TO VERBAL STIMULI, AND ENGAGE IN EYE CONTACT. PATIENT ON TELEMETRY, WHICH HAS SHOWN SINUS RHYTHM TO SINUS TACH, 80'S-LOW 100'S. DENIES CHEST PAIN. PEDAL PULSES WEAK. PATIENT HAS TRACH IN PLACE WITH VENTILATOR, WHICH FIO2 HAS RANGED FROM 60'S, CURRENTLY AT 50% AT A PEEP OF 5. PATIENT HAS DESATURATED WITH COUGHING FITS, AND LONG REPOSITIONS, DUE TO COUGHING. VERY TINY AMOUNTS OF SPUTUM, ALMOST WATERY LIKE AND SPUTUM COLLECTION WAS COLLECTED TODAY. NO BOWEL MOVEMENT DURING SHIFT, BOLUS FEEDINGS PER ORDER, RESIDUALS HAVE BEEN ~10mL'S. BOWEL SOUNDS ACTIVE. SKIN HAS BEEN DRY, MEPILEX IN PLACE LEFT SACRUM. EXCORIATED. REPOSITIONS SELF OFTEN AND HAVE BEEN SUGGESTING AND REPOSITIONING ABOUT EVERY 1.5 HOURS. FENTANYL RUNNING AT 50MCG PER HOUR, CHANGED THIS AM. THIS AM PATIENT WAS FEBRILE, TYLENOL GIVEN, NO INCREASED TEMPERATURES OBSERVED OR RECORDED SINCE ADMINISTRATION. DIANE DRAINING TO GRAVITY LIGHT YELLOW.
--- NOTE | 2021-04-14 19:34 | NUR ---
ASSUMED CARE OF PT AT 1900, REPORT RECEIVED FROM PAYTON RN AND VALERIA RN. PT VENTED VIA TRACH. SPONT 10/5/80% TO MAINTAIN SPO2 >90%. PT WITH OCCASIONAL COUGHING, SCANT AMOUNT SUCTIONED VIA TRACH. HR 80'S SINUS ON MONITOR, SBP 120'S. PT AWAKENS TO VOICE, FOLLOWS COMMANDS AND ABLE TO MOVE ALL EXTREMITIES ALTHOUGH VERY WEAK. PRECEDEX INFUSING AT 1.4 MCG/KG/HR, NS TKO, AND FENTANYL AT 50 MCG/HR. TF BOLUS ORDERS VIA DOBHOFF TO L NARE. LUNGS CLEAR WITH DIM BASES. ACTIVE BOWEL TONES. DIANE DRAINING CLEAR YELLOW URINE TO GRAVITY. PULSES PALPABLE IN ALL EXTREMITIES.
--- NOTE | 2021-04-15 06:12 | NUR ---
SHIFT SUMMARY PT HAVING PERIODS OF BEING VERY ANXIOUS, ATTEMPTED TO TITRATE PRECEDEX DOWN PRN ATIVAN GIVEN, EVENTUALLY HAD TO TITRATE BACK UP TO 1.4 MCG/KG. PT AWAKENS AND HAS COUGHING SPELLS, SPO2 DECREASES TO 78-81%. VENT SETTINGS SPONT PS 10/5 FIO2 75%. LUNGS CLEAR WITH DIM BASES. ACTIVE BOWEL TONES, NO BM THIS SHIFT. PT COOPERATIVE WITH CARE WHEN NOT ANXIOUS. FOLLOWS COMMANDS, ATTEMPTS TO MOUTH WORDS AND POINT TO OBJECTS. FENTANYL CONTINUES INFUSING AT 50 MCG/HR.
[2021-04-15 17:39] LABS: Vancomycin, Trough 6.5 ug/mL (5.0-10.0)
--- NOTE | 2021-04-15 18:11 | NUR ---
PT WITH EXTREME ANXIETY T/O THIS SHIFT. PT IS NOT ABLE TO BE REDIRECTED EASILY TODAY, PT REMAINS ON PRECEDEX DRIP AT 1.4MCG T/O THE DAY WITH INTERMITTENT ATIVAN ADMINISTRATION FOR ANXIETY WITH LITTLE RELIEF. PT PROVIDED WITH VERBAL REDIRECTION BUT HAS A DIFFICULT TIME RECOVERING FROM COUGHING. PT TO BE REASSESSED ON SATURDAY WITH PSYCH TO ESTABLISH IF ANOTHER MEDICATION MIGHT BE BENEFICIAL FOR ANXIETY CONTROL. PT'S DAUGHTER WAS CALLED TO COME TO BEDSIDE WHICH DID ULTIMATELY PROVIDE PT WITH ANXIETY RELIEF DURING THE VISIT AND PT WAS ABLE TO SELF SOOTHE AND REDIRECT. PT TOLERATING BOLUS FFEDS WELL. ANTIBIOTICS CONTINUE
[2021-04-16 04:51] LABS: Albumin, Blood 2.1 g/dL (3.4-5.0); Anion Gap 3 mmol/L (6-16); Blood Urea Nitrogen 7 mg/dL (8-24); Bun/Creatinine Ratio 19.6 (12.0-20.0); CO2, Blood 34 mmol/L (21-32); Calcium, Blood 8.6 mg/dL (8.5-10.1); Chloride, Blood 106 mmol/L (98-108); Creatinine, Blood 0.36 mg/dL (0.40-1.00); Glomerular Filtration Rate >60 (60-); Glucose, Blood 156 mg/dL (70-99); Phosphorus, Blood 4.5 mg/dL (2.5-4.9); Potassium, Blood 3.9 mmol/L (3.5-5.5); Sodium, Blood 143 mmol/L (136-145)
--- NOTE | 2021-04-16 06:12 | NUR ---
FISHER CRAB SUMMARY PT BEGAN SHIFT VERY AGITATED PULLING AT HER TRACH AND IV LINES. PT WAS AXO X2 AT THIS TIME ASKING WHERE SHE WAS AND WAS NOT REDIRECTABLE. PT'S AGITATION CAUSING HER RR TO RISE AND HER O2 SATS TO DROP <80% REQUIRING 100% FIO2 TO RECOVER. PT CONTINUED AGITATION AND DESATTING UNTIL IM ZYPREXA GIVEN TO WHICH SHE RESPONDED WELL TO. PT DID HAVE A FEW MOMENTS OF AGITATION FOLLOWING THIS CAUSING INCREASED COUGHING AND DESATTING O2 SATS SO PRN ATIVAN GIVEN W RELIEF OF ANXIETY. PRECEDEX TITRATED EARLY THIS AM FROM 1.4 TO 1.2. PT AFEBRILE THIS SHIFT W PEAK TEMP AT 97.2. BP ELEVATED THIS SHIFT SO 10MG LABETOLOL GIVEN X2 W MINIMAL EFFECTS. FIO2 ON VENT AT 50% FOR MAJORITY OF THE SHIFT W O2 SATS >92%. HR WAS ST IN THE 120'S WHEN PT WAS AGITATED BUT REMAINED NSR IN THE 80'S FOR MAJORITY OF THE NIGHT. DOBHOFF RESIDUALS REMAIN <100ML. WILL REPORT TO ONCOMING RN.
--- NOTE | 2021-04-16 08:58 | NUR ---
PROVIDER VISIT DR. Jasso in to see patient. Provider would like Precedex titerated off today and Fentanyl CERTIFIED PROSTHETIST has been DC'd. Wasted and entered and emar. Precedex currently 1 mcg/kg/hr. Provider would like goodman removed as well. See emar for other updates.
[2021-04-16 10:14] LABS: Vancomycin, Trough 14.7 ug/mL (5.0-10.0)
--- NOTE | 2021-04-16 10:29 | NUR ---
ASSUMPTION OF CARE: ASUUMED CARE WITH SAMI RN AT 0715 ON 04/16/2021, PRECEDEX INFUSING AT 1.2 MCG/KG/HR, FENTANYL AT 50MCG/HR. PATIENT IS ANXIOUS MOST OF THE TIME, ALERT TO PERSON SELF AND FOLLOWING DIRECTION. MOVES ALL EXTREMETIES. DENIES CHEST PAIN, IS HAVING TACHACARDIA AND HYPERTENSIVE EPISODES UP INCREASED ANXIETY AND AGITATION. DENIES CHEST PAIN. PULSES STRONG ALL 4 EXTREMITIES. NSR IN THE 80'S-90'S PATIENT HAS A TRACH THAT WAS PLACED ~ 04/04/2021, VENT SETTINGS PS 15/5, 50% FIO2 SPO2>94 EXCEPT WHEN ANXIOUS INCREASED RR AND DECREASED TIDAL VOLUME AND WILL DESATURATE TO THE LOW 80'S. COACHABLE AT TIME TO RECOVER. SCANT AMOUNT OF WATER SPUTUM. DENIES STOMACH PAIN, TENDER, BOLUS FEEDS THROUGH BENEDICTO TRUONG IN PLACE DRAINING TO GRAVITY THIS MORNING, DC'D PER PROVIDER ORDER.
--- NOTE | 2021-04-16 13:30 | NUR ---
Update- pt to chair Pt transfered to chair using lift and two person assist. Pt is very anxious. Boyfriend at, attempting verbal redirection without success. Pt placed on bedside commode due to feeling like she had to have BM, no BM. Pt had 600 urine output after goodman has been removed. Pt continues to be anxious, RR 50's-60's, HR elevated 110's during event, and pt coughing frequently. Treated per emar.
--- NOTE | 2021-04-16 15:17 | NUR ---
Update- Spoke to Dr. Briones and updated on current patient status. Provider to place new orders.
--- NOTE | 2021-04-16 17:45 | NUR ---
Shift Summary Vent settings: PS 15/5, FIO2 50%, SPO2 > 90%, Scant oral and ETT secretion's. LS coarse. Precedex 1.0 mcg/kg/hr and PRN medications per emar. Pts boyfriend at bedside t/o shift. Pt continues to be anxious and not verbally redirected. Treated per emar with Ativan with good effect. A/O to self, family at bedside, and following directions. Moves all extrems, weak oxyacetylene torch operator strength. Spoke to patients [id number] and updated on care being provided. NSR, HR 80-120'S. BP stable. Patient remains in chair per request but nods yes to having back pain once, treated per emar. Loja removed and pt has urinated since. Will report to oncoming shift.
--- NOTE | 2021-04-16 19:22 | NUR ---
CARE ASSUMPTION PT IS ALERT BUT MINIMALLY COMMUNICATING. PT IS MILDLY ANXIOUS AT THIS TIME DESATTING DOWN TO 85% REQUIRING BRIEF INCREASE IN FIO2 AND REDIRECTING TO RECOVER. PRECEDEX GTT RUNNING AT 1.4. RR IN THE 30'S WHEN THE PT IS AT REST BUT IN THE HIGH 50'S WHEN SHE WAS HAVING ANXIETY. LS ARE VERY COARSE. BP IS WNL AND HR IS SR AT 90. PT RESTING IN THE RECLINER REFUSING TO GO BACK TO THE BED AT THIS TIME.
--- NOTE | 2021-04-16 22:35 | NUR ---
UPDATE PT WAS TRANSFERED FROM THE RECLINER TO THE BSC AND THEN BACK INTO HER BED. PT BECAME VERY WORKED UP W HR BECOMING ST IN THE 120'S AND RESPIRATIONS 40-61. IM ZYPREXA, ATIVAN WERE BOTH GIVEN W THE PT CONTINUING TO BE VERY TACHYPNEIC AND RESTLESS. RT WAS CONSULTED WHO SUGGESTED ASKING THE INTERVENTIONALIST FOR ALTERNATIVE ORDERS AND DR. LAINEZ WAS OK W THE PT'S PRESENTATION SHE IS VERY FAMILIAR W THE PT'S CASE AND ANXIETY LEVELS. DR. LAINEZ SUGGESTED CONTINUED USE OF ATIVAN PRN AND TO REPLACE THE DIANE CATHER THE WORKLOAD ON THE PT TO USE THE BSC OR BEDPAN CAUSES HER TOO MUCH ANXIETY. PT IS MAINTAINING O2 SATS >90% ON 60% FIO2 BUT MAINTAINING RR >40.
[2021-04-16 23:31] LABS: Source, Urine Clean Catch
[2021-04-16 23:35] LABS: Bilirubin, Urine Neg (Neg); Blood, Urine 1+ (Neg); Glucose Qualitative, Urine Neg (Neg); Ketones, Urine Neg (Neg); Leukocyte Esterase, Urine Neg (Neg); Nitrite, Urine Neg (Neg); Protein, Urine Neg (Neg); Urobilinogen, Urine NORM (Normal)
[2021-04-16 23:36] LABS: Appearance, Urine Clear (Clear); Color, Urine Yellow (P-Yellow)
[2021-04-16 23:40] LABS: Bacteria Few /hpf; Squamous Epithelial Cells Not Seen /hpf (Few); White Blood Cells, Urine 0-2 /hpf (0-5)
--- NOTE | 2021-04-17 04:24 | NUR ---
UPDATE PT CONTINUED TO HAVE RESPIRATIONS IN THE 60'S AND STACKING EVERY TO EVERY OTHER BREATH ON THE VENTILATOR SO R/T AND ICU SMALL KICK PRESS OPERATORTAI Colon PLACED PT'S VENTILATOR BACK ON A/C MODE.
[2021-04-17 04:26] LABS: Hematocrit 25.7 % (33.0-51.0); Hemoglobin 7.9 g/dL (11.5-16.0); Mean Corpuscular HGB 29.7 pg (26.0-34.0); Mean Corpuscular HGB Conc 30.7 g/dL (31.5-36.5); Mean Corpuscular Volume 97 fL (80-100); Mean Platelet Volume 10.2 fL (9.1-12.4); NRBC ABSOLUTE 0.03 K/mm3 (0.00-0.02); NRBC Auto 0.4 /100 WBC (0.0-0.2); Platelet Count 390 K/mm3 (150-400); RDW Standard Deviation 49.2 fL (35.1-46.3); Red Blood Cell Count 2.66 M/mm3 (3.80-5.20); White Blood Cell Count 6.77 K/mm3 (4.00-11.30)
[2021-04-17 04:57] LABS: Anion Gap 5 mmol/L (6-16); Blood Urea Nitrogen 8 mg/dL (8-24); Bun/Creatinine Ratio 21.1 (12.0-20.0); CO2, Blood 32 mmol/L (21-32); Calcium, Blood 8.7 mg/dL (8.5-10.1); Chloride, Blood 108 mmol/L (98-108); Creatinine, Blood 0.38 mg/dL (0.40-1.00); Glomerular Filtration Rate >60 (60-); Glucose, Blood 117 mg/dL (70-99); Potassium, Blood 3.9 mmol/L (3.5-5.5); Sodium, Blood 145 mmol/L (136-145)
[2021-04-17 05:23] LABS: BASOPHILS PERCENT MAN 3 % (0-2); EOSINOPHILS ABSOLUTE MAN 0.13 K/mm3 (0.00-0.68); EOSINOPHILS PERCENT MAN 2 % (0-6); LYMPHOCYTES ABSOLUTE MAN 3.24 K/mm3 (0.84-5.20); LYMPHOCYTES PERCENT MAN 48 % (21-46); METAMYELOCYTE ABSOLUTE MAN 0.06 K/mm3 (0.00-0.00); METAMYELOCYTE PERCENT MAN 1 % (0-0); MONOCYTES PERCENT MAN 3 % (4-13); MYELOCYTE ABSOLUTE MAN 0.13 K/mm3 (0.00-0.00); MYELOCYTE PERCENT MAN 2 % (0-0); NEUTROPHILS ABSOLUTE MAN 2.77 K/mm3 (1.96-9.15); SEG NEUTROPHILS PERCENT MAN 41 % (41-73); TOTAL CELLS COUNTED 100
--- NOTE | 2021-04-17 06:05 | NUR ---
BAND TACKER SUMMARY PT BEGAN SHIFT VERY AGITATED AND NOT REDIRECTABLE. PT'S HR WAS ST IN THE 130'S AND RR WAS 40-60'S. PT MEDICATED FOR ANXIETY W MINIMAL EFFECT. PT THEN TRANSFERED FROM CHAIR TO CAMMODE AND THEN TO THE BED WHICH SHE DID NOT TOLERATE WELL AT ALL USING THE LIFT. ONCE PT WAS BACK IN BED SHE WAS GIVEN IM ZYPREXA AND BEGAN TO CALM SLIGHTLT BUT REMAINED TACHYPNEIC IN THE 50'S SO DR. LAINEZ WAS CONSULTED BY THIS RN WHO INSTRUCTED TO REPLACE THE DIANE CATHETER SINCE THE PT WAS NOT TOLERATING THE LIFT OR BEING TURNED TO USE THE BEDPAN. PT REMAINED VERY TACHYPNEIC DESPITE EVENTUAL ANXIETY RELIEF W PRN ATIVAN SO R/T CONSULTED ICU SIDE BOSS YUMI Colon AND SINCE THE PT HAD RR IN THE 60'S AND STACJKING BREATHS ON THE VENT THE SWITCHED THE VENT BACK TO A/C MODE AND THE PT'S RR REMAINED IN THE MID 20'S SINCE THEN. PT'S PEAK TEMP WAS 99.4 BUT WAS GIVEN A COOL WASH CLOTH ON HER HEAD AND A FAN WHICH BROUGHT HER ORAL TEMP DOWN TO 98.1. BP WNL AND STABLE THIS SHIFT. HR WAS IN 130'S AT START OF THE SHIFT BUT IS NOW SR IN THE MID 70'S THIS AM. CURRENT VENT SETTINGS ARE 16/325/40/5 W O2 SATS >91%. PT CONTINUES TO DROP O2 SATS <75% WHEN HAVING ANXIETY ATTACKS. DOBHOFF RESIDUALS <100ML THIS SHIFT. PRECEDEX AT 1.4 THIS SHIFT. PT'S CATHETER HAD 1350ML CLEAR YELLOW URINE THIS SHIFT W A 700ML VOID PRIOR TO CATHETER PLACEMENT. WILL REPORT TO OTTONIEL LUJAN.
--- NOTE | 2021-04-17 07:36 | NUR ---
Care Assumed 0700 Precedex 1.4 mcg/kg/hr, infusing via PICC to BRIAN. Vent settings: AC 16/325/5/40%. SPO2 > 88%. LS coarse. Responds to verbal stumli, opening eyes, following commands, moves all extrems. During activity has coughing spells with increased peak pressures (40's), RR 40-50's, SPO2 decreases to low 80's. Treated per emar. Attempted to verbally redirect without success. NSR HR 80's. Loja in place, 300 ml of clear yellow output. Dobhoff in place with bolus feeds.
--- NOTE | 2021-04-17 12:45 | NUR ---
Update- Provider Visit Dr. Pizano and Dr. Jasso in to see patient. Providers spoke to Dr. Del Toro via phone. Vent settings: AC 16/325/5/40%, SPO2 > 90%. Pts at bedside and updated on care being provided. Patient either sleeping or with high anxiety (RR 50's) and not tolerating vent. Consult called for Dr. Babb for PEG tube placement. Spoke to boyfriend (Rohith) at bedside in regards to PEG tube, he states Amber patients [id number] is the decision maker, will speak to Amber when she calls back. Spoke to Dr. Del Toro on the phone and updated on care being provided. Provider would like zyprexa given at 2200 and not earlier. Will let nightshift nurse know.
--- NOTE | 2021-04-17 15:00 | NUR ---
Provider Call- Dr. Mirta Kirby called in regards to patients increased anxiety. Pt kicking and throwing pillows off bed. Attempting to get out of bed. RR 60's, Hyprtensive SBP 170's, HR 140's. Pt nods yes to being anixous. Patient's boyfriend at bedside but unable to be verbally redirected. See emar for new orders.
--- NOTE | 2021-04-17 18:24 | NUR ---
Shift Summary Vent settings: AC 16/325/5/40% SPO2 > 90%. Precedex 1.4 mcg/kg/hr. When patient awake she is A/O to self and following directions. Very anxious, treated per emar with little success. Boyfriend at bedside, unable to help calm patient. Pt thrashing in bed frequently, pulling at trach and lines/tubes/cords. Dr. Kirby at bedside around 1600 to assess, patient mouthing hello to provider at bedside and nods yes to feeling anxious and restless. New orders recieved to inncrease Ativan to 2-3 Q2 PRN. See emar for updated orders. Bolus feeds given per order, patient had BM today, BT active, Dobhoff in place. Loja in place with yellow/clear. Spoke to patients family about PEG tube and Amber ([id number]) states they would like this done tomorrow. will report to oncoming shift.
--- NOTE | 2021-04-17 18:34 | NUR ---
Provider visit- Dr. Babb and family updated Dr. Babb in to see patient and plan to place PEG tube tomorrow. Spoke to patients [id number] and she states the family would like a PEG placed tomorrow. [id number] to come in tomorrow to see patient.
--- NOTE | 2021-04-17 19:40 | NUR ---
ASSUMED CARE OF PT, BEDSIDE REPORT RECEIVED. PT RESTING QUIETLY RECLINING IN BED AND APPEARS TO BE SLEEPING, NS AT TKO X 2, PRECEDEX AT 1.4 MCG/KG/HR AT THIS TIME. PER OFFGOING RN, PT HAS BEEN DIFFICULT TO MEDICATE FOR VENTILATOR COMPLIANCE, SENSITIVE COUGH REFLEX, HIGH RESP RATE, HIGH ANXIETY FREQUENTLY ON DAY SHIFT. WILL MONITOR.
[2021-04-18 04:41] LABS: Hematocrit 24.6 % (33.0-51.0); Hemoglobin 7.5 g/dL (11.5-16.0); Mean Corpuscular HGB 29.9 pg (26.0-34.0); Mean Corpuscular HGB Conc 30.5 g/dL (31.5-36.5); Mean Corpuscular Volume 98 fL (80-100); Mean Platelet Volume 10.4 fL (9.1-12.4); NRBC ABSOLUTE 0.02 K/mm3 (0.00-0.02); NRBC Auto 0.3 /100 WBC (0.0-0.2); Platelet Count 399 K/mm3 (150-400); RDW Coefficient Variation 14.3 % (11.7-14.2); RDW Standard Deviation 50.2 fL (35.1-46.3); Red Blood Cell Count 2.51 M/mm3 (3.80-5.20); White Blood Cell Count 7.52 K/mm3 (4.00-11.30)
[2021-04-18 04:58] LABS: Anion Gap 6 mmol/L (6-16); Blood Urea Nitrogen 9 mg/dL (8-24); Bun/Creatinine Ratio 22.6 (12.0-20.0); CO2, Blood 30 mmol/L (21-32); Calcium, Blood 7.8 mg/dL (8.5-10.1); Chloride, Blood 108 mmol/L (98-108); Glomerular Filtration Rate >60 (60-); Glucose, Blood 104 mg/dL (70-99); Phosphorus, Blood 3.8 mg/dL (2.5-4.9); Potassium, Blood 3.7 mmol/L (3.5-5.5); Sodium, Blood 144 mmol/L (136-145)
--- NOTE | 2021-04-18 06:05 | NUR ---
PT CONTINUES TO HAVE RESP RATE INCREASING TO 60S WITH INCREASES IN STIMULATION SATS ARE NOTED TO DECREASE TO 70S WITH INCREASES IN RESP RATE, MINIMAL SPUTUM IS SUCTIONED FROM TRACH. ADDITIONAL PRN MEDICATIONS ORDERED YESTERDAY BY DR BRADLEY HAVE BEEN EFFECTIVE IN DECREASING PT ANXIETY. VENTILATOR SETTINGS CONTINUE WITHOUT CHANGES. SATS MAINTAIN WHEN PT IS AT REST.
[2021-04-18 09:45] LABS: Vancomycin, Trough 20.5 ug/mL (5.0-10.0)
--- NOTE | 2021-04-18 12:31 | NUR ---
REASSESSMENT PT REMAINS ANXIOUS, REQUIRING MULTIPLE PRN ANXIETY MEDS FOR PT TO SLOW RR AND TOLERATE VENT. MONITER CONTINUES TO SHOW SINUS RHTYHM/TACH WITH RATES 70'S-100'S. REMAINS NPO FOR PLANNED PEG PLACEMENT. OTHER VITALS REMAIN STABLE. NO CHANGES TO VENT SETTINGS.
--- NOTE | 2021-04-18 15:00 | NUR ---
DAY SURGERY RN'S, DR DENIS AND ANESTHSIA AT BEDSIDE FOR PEG PLACEMENT.
--- NOTE | 2021-04-18 15:02 | NUR ---
04/18/21 1502 SONDRA ALBERTS History, Chart, Medications and Allergies reviewed before start of procedure. 3-LEAD EKG REVIEWED WITH PHYSICIAN PRIOR TO START OF PROCEDURE. PT INTUBATED. MONITOR INTACT WITH CONTINUOUS PULSE OXIMETRY AND INTERMITTENT BP. MAC WITH DR. HAMILTON.
--- NOTE | 2021-04-18 16:15 | NUR ---
REASSESSMENT PT REMAINS SEDATED POST PEG PLACEMENT. TOLERATING VENT WITH IMPROVED RESPIRATIONS. SINUS RHYTHM ON MONITOR. ABDOMINAL BIDER ON AND IN PLACE TO PROTECT PEG FROM ACCIDENTAL PULLING. VITALS REMAIN STABLE.
--- NOTE | 2021-04-18 17:38 | NUR ---
SHIFT SUMMARY PRIOR TO PT'S PEG PROCEDURE TODAY, PT WAS ALERT, ANXIOUS, RESTLESS AND RR WOULD INCREASE TO 40'S. PT WOULD REQUIRER FREQUENT PRN DOSES OF MEDICATIONS TO HELP RELAX AN TOLERATE VENT. POST PROCEDURE PT HAS BEEN RECOVERING FROM PROPOFOL SEDATION ADMINSTERED BY ANESTHESIA. PT AWAKENS, BUT FALLS ASLEEP EASILY, RR MID 20'S. VENT SETTINGS AC16/325/5/40% VIA TRACH. PT REMAINS ON PRECEDEX 1.4MCG/KG/HR. VITALS HAVE REMAINS STABLE. MONITOR SHOWS PT TO BE SINUS RHYTHM.
[2021-04-19 04:09] LABS: Hematocrit 27.5 % (33.0-51.0); Hemoglobin 8.5 g/dL (11.5-16.0); Mean Corpuscular HGB 29.9 pg (26.0-34.0); Mean Corpuscular HGB Conc 30.9 g/dL (31.5-36.5); Mean Corpuscular Volume 97 fL (80-100); Platelet Count 420 K/mm3 (150-400); RDW Coefficient Variation 14.2 % (11.7-14.2); RDW Standard Deviation 49.3 fL (35.1-46.3); Red Blood Cell Count 2.84 M/mm3 (3.80-5.20); White Blood Cell Count 8.68 K/mm3 (4.00-11.30)
[2021-04-19 04:29] LABS: Albumin, Blood 2.3 g/dL (3.4-5.0); Anion Gap 6 mmol/L (6-16); Blood Urea Nitrogen 8 mg/dL (8-24); Bun/Creatinine Ratio 15.3 (12.0-20.0); CO2, Blood 31 mmol/L (21-32); Calcium, Blood 8.6 mg/dL (8.5-10.1); Chloride, Blood 106 mmol/L (98-108); Creatinine, Blood 0.52 mg/dL (0.40-1.00); Glomerular Filtration Rate >60 (60-); Glucose, Blood 104 mg/dL (70-99); Potassium, Blood 3.7 mmol/L (3.5-5.5); Sodium, Blood 143 mmol/L (136-145)
--- NOTE | 2021-04-19 05:50 | NUR ---
PT HAS BEEN ABLE TO MAINTAIN PERIODS OF INCREASED ALERTNESS WITH FEWER EPISODES OF RESPIRATORY RATES INCREASING TO THE 50/60S. SHE DOES CONTINUE TO PICK AT LINES AND BEDDING. COOPERATIVE WITH ORAL CARE THIS SHIFT. INCREASED TOLERANCE FOR TURNS AND REPOSITIONING ALTHOUGH DOES CONTINUE WITH SENSITIVE COUGH REFLEX. VENT SETTINGS REMAIN UNCHANGED THROUGHOUT NOC AND SATS MAINTAIN WHEN PT IS AT REST, COUGHING AND INCREASED RESPIRATORY RATE EPISODES DO RESULT IN SATS DECREASING TO UPPER 70S TO 80S, RECOVERS IMMEDIATELY UPON CESSATION OF COUGHING OR RESPIRATORY RATES DOWN TO 40S. CONTINUE WITH ABD BINDER IN PLACE FOR PEG TUBE PROTECTION RELATED TO THE PULLING AT TUBES AND LINES. OTHERWISE NO ACUTE CHANGES THIS SHIFT.
--- NOTE | 2021-04-19 08:58 | NUR ---
Care assumed 0700 Vent settings: AC 16/325/5/40%, SPO2 96%. Precedex 1.4 mcg/kg/hr, pt with increased RR 50's when anxious and unable to be redirected with verbal cues. Tracking in room and moving all extrems. Coughing frequently, peak pressures 30's. Treated per emar for anxiety. LS coarse. Peg tube in place with bolus TF. Loja in place with 300 ml of clear yellow output.
--- NOTE | 2021-04-19 12:35 | NUR ---
Update- Vent changes Dr. Alex at bedside. Vent setting: PS 12/5, FIO2 40%, SPO2> 90%. Precedex placed on SB per provider. Patient currently sleeping. Will continue to monitor closly.
--- NOTE | 2021-04-19 15:56 | NUR ---
Update-Provider visit, RT at bedside Pt with severe anxiety, attempting to pull out trach and pulled out circuit tubing and broke it, SWB placed for safety. Placed back on AC 16/325/5/50%, SPO2 > 80%. RR 50-60's, HR 130'S, Pt kicking pillows off bed. Attempting to pull out goodman. Unable to be verbally redirected, tracking and able to squeeze hands but cannot be redirected. Crying/tearful at times as well. Charge nurse and RT at bedside. RT updated Dr. Alex and new orders recieved for Ativan and possible start of Propofol, if agitation continues.
--- NOTE | 2021-04-19 18:11 | NUR ---
Shift Summary Around [address] patient on trach collar with 60% FIO2 with speaking valve. Patients [id number], Amber, at bedside and attempting to calm patient without success. During trach collar placement patient had large emesis (formula). RR elevated (50-60's), HR 150'S, and pt placed back on vent 12/5, FIO2 60%. Precedex was on SB but restarted during this incident, see flow sheet. See pervious note in regards to RT speaking to Dr. Alex and pt placed back on AC mode. AC 16/325/5/50% (current settings). Pt treated per emar per Dr. Alex's orders, with 4 mg of Ativan. patient resting after. Moves all extrems, tracking in room, attempting to pull at lines but falls asleep quickly after. HR 90's. SPO2 100%. Precedex 1.4 mcg/kg/hr, infusing via PICC. 1600 bolus TF held due to patients large emesis. Pt denies nausea but gagging occasionally. Will restart at 1999. SWB in place. Will report to oncoming shift.
--- NOTE | 2021-04-19 19:25 | NUR ---
ASSESSMENT/ASSUMED CARE PT AWAKE SITTING UP IN BED WITH EYES OPEN, PULLING ON RESTRAINTS. PT VERY RESTLESS AND AGITATED. PT ON PRECEDEX 1.4 MCQ/KG/HR. BILAT SOFT WRIST RESTRAINTS ON. LUNGS COARSE T/O. PT ON VENT VIA TRACH. VENT SETTINGS AC 16 TV 325 PEEP 5 FIO2 50%. SUCTIONS SCANT WHITE FLUID VIA TRACH. TRACH CARE DONE. HEART RATE REGULAR TACHY. BP STABLE. NO EDEMA. PEG TUBE TO LEFT UPPER QUAD ABD CLAMPED. DIANE CATH PATENT DRAINING YELLOW URINE. PICC LINE TO LEFT UPPER ARM WITH NS AT 10 ML/HR AND PRECEDEX AT 1.4 MCQ/KG/HR. SITE CLEAR, WILL CHANGE DRSG. POWER GLIDE TO RIGHT UPPER ARM CLAMPED, FLUSHED WITHOUT DIFFICUTLY. DRSG INTACT, WILL CHANGE DRSG. PT TO RECIEVE BED BATH TONIGHT.
--- NOTE | 2021-04-19 21:39 | NUR ---
AGITATION PT VERY AGITATED AND TRYING TO CLIMB OUT OF BED. HEART RATE 130-140'S, RESP RATE 40-50'S. PT IN ON PRECEDEX AT 1.4 MCQ/KG/HR AND HAS RECEIVED FENTANYL 50 MCQ, ATIVAN 2 MG IV. ALSO SEROQUEL 50 MG AND ZYPREXA 15 MG VIA PEG TUBE. CALL TO DR KIM ABOUT PROPOFOL WAS TOLD TO GIVE HALDOI IM, 5 MG HALDOL GIVEN IM TO LEFT THIGH. PT IN BILAT WRIST RESTRAINTS DUE TO PULLING AT LINES AND TRACH.
--- NOTE | 2021-04-19 21:45 | NUR ---
BED BATH AND DRSG CHANGES PICC LINE AND POWER GLIDE DRSG AND STAT LOCKS CHANGED. BOTH SITES CLEAR. BED BATH GIVEN. BOTTOM RED WITH BREAKDOWN TO RIGHT BUTTOCKS. FOAM DRSG APPLIED AND PT TURNED OFF BOTTOM.
--- NOTE | 2021-04-19 21:57 | NUR ---
CALL TO DR SALINAS PT CONT AGITATED AND FIGHTING THE VENT. RESP RATE 50-60'S, HEART RATE 130-140. CALL TO DR SALINAS, RECEIVED ORDERS FOR ATIVAN 4MG QGHR, SEROQUEL 10 MG Q6HR PER PEG TUBE AND LOW DOSE PROPOFOL.
--- NOTE | 2021-04-19 23:56 | NUR ---
REASSESSMENT PT CONT ON VENT VIA TRACH. RT CHECK TRACH PLACEMENT. DRSG CHANGED AND TRACH CLEANED. LUNGS CONT COARSE AND DECREASED IN THE BASES. VENT SETTINGS AC 16 TV 325 PEEP 5 FIO2 60%. HEART RATE IN THE 90'S, BP STABLE. BT HYPOACTIVE. PT MED WITH PRECOCET FOR RESTLESSNESS/PAIN. ORAL CARE DONE. PT REPOSITIONED TO LEFT TO KEEP OFF BOTTOM.
--- NOTE | 2021-04-20 02:32 | NUR ---
SEDATION TRIED PT ON LOWER DOSE OF PROPOFOL 25MCQ/KG/MIN. AFTER 15 MIN PT TRYING TO CLIMB OUT OF BED, PULLING AGAINST RESTRAINTS, RESP RATE UP TO MID HIGH 30'S AND UNABLE TO REDIRECT PT. PROPOFOL BACK UP TO 30 MCQ/KG/MIN.
[2021-04-20 03:55] LABS: BASOPHILS ABSOLUTE AUTO 0.04 K/mm3 (0.00-0.23); BASOPHILS PERCENT AUTO 0 % (0-2); EOSINOPHILS ABSOLUTE AUTO 0.18 K/mm3 (0.00-0.68); EOSINOPHILS PERCENT AUTO 2 % (0-6); Hematocrit 27.2 % (33.0-51.0); Hemoglobin 8.4 g/dL (11.5-16.0); IMMATURE GRAN ABSOLUTE AUTO 0.07 K/mm3 (0.00-0.10); IMMATURE GRAN PERCENT AUTO 1 % (0-1); LYMPHOCYTES ABSOLUTE AUTO 2.67 K/mm3 (0.84-5.20); LYMPHOCYTES PERCENT AUTO 27 % (21-46); MONOCYTES ABSOLUTE AUTO 0.86 K/mm3 (0.16-1.47); MONOCYTES PERCENT AUTO 9 % (4-13); Mean Corpuscular HGB 29.8 pg (26.0-34.0); Mean Corpuscular HGB Conc 30.9 g/dL (31.5-36.5); Mean Corpuscular Volume 97 fL (80-100); Mean Platelet Volume 10.1 fL (9.1-12.4); NEUTROPHILS ABSOLUTE AUTO 6.16 K/mm3 (1.96-9.15); NEUTROPHILS PERCENT AUTO 62 % (41-73); Platelet Count 422 K/mm3 (150-400); RDW Coefficient Variation 14.3 % (11.7-14.2); RDW Standard Deviation 49.5 fL (35.1-46.3); Red Blood Cell Count 2.82 M/mm3 (3.80-5.20); White Blood Cell Count 9.98 K/mm3 (4.00-11.30)
[2021-04-20 04:17] LABS: Alanine Aminotransfer (ALT/SGP 50 U/L (12-78); Albumin, Blood 2.3 g/dL (3.4-5.0); Albumin/Globulin Ratio 0.6 (0.8-1.8); Alk Phos 80 U/L (50-136); Anion Gap 6 mmol/L (6-16); Aspartate Aminotrans (AST/SGOT 16 U/L (12-37); Bilirubin, Total 0.2 mg/dL (0.1-1.0); Blood Urea Nitrogen 9 mg/dL (8-24); Bun/Creatinine Ratio 17.5 (12.0-20.0); CO2, Blood 29 mmol/L (21-32); Calcium, Blood 8.7 mg/dL (8.5-10.1); Chloride, Blood 107 mmol/L (98-108); Creatinine, Blood 0.52 mg/dL (0.40-1.00); Globulin, Blood 3.8 g/dL (2.2-4.0); Glomerular Filtration Rate >60 (60-); Glucose, Blood 108 mg/dL (70-99); Magnesium, Blood 2.3 mg/dL (1.6-2.4); Phosphorus, Blood 4.7 mg/dL (2.5-4.9); Potassium, Blood 3.8 mmol/L (3.5-5.5); Sodium, Blood 142 mmol/L (136-145); Total Protein, Blood 6.1 g/dL (6.4-8.2)
--- NOTE | 2021-04-20 05:25 | NUR ---
SHIFT SUMMARY PT CONT ON VENT VIA TRACH. PT WITH AGITATED, TRYING TO CLIMB OUT OF BED, INCREASED RESP RATE 50-60'S, DECREASED TV WITH ELEVATED RESP RATE, AND INCREASED HEART RATE UP INTO 150'S. EVEN AFTER MED WITH ATIVAN, ZYPREXA, HALDOL, FENTANYL AND PRECEDEX. PT STARTED ON PROPOFOL 30 MCQ/KG/MIN BUT HAS BEEN TITRATED DOWN TO 20 MCQ/KG/MIN. AFTER STARTING PROPOFOL RESP RATE DOWN 20'S WITH TV BACK UP TO 300-400'S. WITH INCREASE IN TV SPO2 UP TO MID TO HIGH 90'S ABLE TO TITRATE FIO2 DOWN TO 40%. CURRENT VENT SETTINGS AC 16 TV 325 PEEP 5 FIO2 40%. LUNGS CONT COARSE AND DECREASED IN THE BASES. HEART RATE AFTER SEDATION DECREASED DOWN TO 80'S. BP HYPOTENSIVE, SO PROPOFOL DECREASED. BILAT SOFT WRIST RESTRAINTS ON. PT TURNED SIDE TO SIDE DURING THE NIGHT TO KEEP OFF BOTTOM DUE TO BREAKDOWN. FOAM DRSG APPLIED TO BOTTOM FOR PROTECTION. TUBE FEED GIVEN VIA PEG TUBE BOLUS FEEDING. PICC AND POWER GLIDE DRSG CHANGED. BOTH SITES CLEAR. DIANE CATH PATENT AND DRAINING YELLOW URINE. PT FOLLOWING SOME INSTRUCTION AT TIMES. ABLE TO MAKE NEEDS KNOWN. TRACH CARE DONE. REPORT TO ON COMING NURSE
--- NOTE | 2021-04-20 06:06 | NUR ---
HYPOTENSION CALL TO DR SALINAS REGARDING HYPOTENSION. PROPOFOL OFF AND PRECEDEX AT 0.7 MCQ/KG/HR. OBTAINED ORDER FOR NS 1000ML BOLUS.
--- NOTE | 2021-04-20 07:34 | NUR ---
Care Assumed 0700 Vent settings: AC VC +: 16/325/5/40%, spo2 93% via trach. Precedex 1 mcg/kg/hr and Propofol 10 mcg/kg/min. Pt pulling on restraints and coughing. RT Dana at bedside and vent settings changed to VC+. PT opening eyes, tracking, following commands, but continues to pull on restraints. Treated per emar with 2 mg of Ativan. WIll attempt to titrate Propofol off. Peg tube in place, with bolus feeds. Loja in place with 10 ml of clear yellow output.
--- NOTE | 2021-04-20 12:46 | NUR ---
Update- Provider visits Dr. Jama at bedside, patients mother at bedside, updated on patient having placement in [facility] in [place], if patients anxiety is under control. Dr. Jasso at bedside around 0930 and vent settings changed to PS 12/5, fio2 40%, spo2 > 90. Spoke to Dr. Kirby via phone and updated on current care. Provider to change orders per emar.
--- NOTE | 2021-04-20 12:52 | NUR ---
Update- Patients mother at bedside but pt continues to have anxiety. Precedex 1.4 mcg/kg/hr. Vent settings: PS 12/5, FIO2 50%. Pt thrashing in bed frequently, pulling at lines, SWB remains in place. A/O to family at bedside, open eyes tracking, following commands, able to make needs known by mouthing words/pointing. Unable to find a comfortable position. Dr. Jasso would like patient up to the chair. Will attemtp to do this around 1400. HR 130's, RR 30-40's. and MAP > 65.
--- NOTE | 2021-04-20 15:48 | NUR ---
Pt to bedside chair Pt moved to bedside chair using lift, charge nurse and AIR QUALITY INSTRUMENT SPECIALIST at bedside. Pt tolerated well. Nods yes to having lower back pain while sitting in chair, treated per emar. Mother, Berta, at patients bedside. Decreased anxiety with mother at bedside. Precedex remains on 1.4 mcg/kg/hr. HR 130's. RR 20-30's. BP stable. SIT. Physical therapyToro, at bedside to attempt to perform therapy. Patient able to participate.
--- NOTE | 2021-04-20 17:53 | NUR ---
Shift Summary Vent: PS 12/5, FIO2 50%. Propofol remains on SB. Precedex GTT 0.7 mcg/kg/min and treated per emar for anxiety. Patients mother at bedside majorty of the day and helpful with decreasing patients anxiety. Tolerated being in chair for around 45 minutes and complained of lower back pain. Heat pad placed to lower back and pain treated per emar. Loja in place with clear/yellow output. Peg tube in place with bolus feeds. BT hypoactive. Per Dr. Jama will give patient milk of magnesium due to no BM for the past few days. SWB remain in place. Pt remains A/O to self and family. Able to communicate by mouthing words and pointing. Will report to oncoming shift.
--- NOTE | 2021-04-20 20:27 | NUR ---
CANDE AWAKENS, FIDGETING, CAN'T COMMUNICATE WHAT SHE IS WANTING. RESP RATE TO 50, TRIED TO CALM, WANTED HER "SHIRT" OFF, TOLD HER SHE NEEDED TO REMAIN COVERED. PULLING AT HER RESTRAINTS, PRECEDEX CONTINUES @ 0.7MCG/KG/HR. FEEDING GOING IN. PT CONTINUES TO BREATHE RAPIDLY, WILL SEE IF MEDS ARE NECESSARY.
--- NOTE | 2021-04-20 22:24 | NUR ---
CANDE WANTED TO SIT UP ON THE EDGE OF THE BED, ASSISTED HER TO DO SO, SHE THEN BEGAN THROWING UP HER JEVITY. SHE THREW UP ABOUT 100ML, SHE IS SOUNDING COARSE T/O WITH RAPID VENTILATIONS, R/T CALLED TO SEE IF SHE NEEDS TX. MEDICATED WITH ATIVAN AND FENTANYL FOR RELIEF. UNSURE HOW MUCH OF HER MEDICATION STAYED WITH HER SINCE SHE HAD THE EMESIS. SATS HIGH 80'S-90, RATE 30'S-40. HEART RATE 140'S.
--- NOTE | 2021-04-20 23:53 | NUR ---
LUNGS ARE CLEARING WITH COUGH AND SUCTIONING. PT IS CONTINUING TO BE AGITATED. PRECEDEX INCREASED TO 1.4 MCG/KG/HR PER ORDERS. PT PULLING AT THINGS IN THE AIR AND NOT ABLE TO CONCENTRATE ON STAFF. TRYING TO REORIENT FREQUENTLY AND HELP HER TO CONTROL HER OWN BREATHING. GETS IRRITATED WITH STAFF, SWATTING AT US. BOTHERED BY BP CUFF, PULSE OXIMETER. PT SHAKY. RESTLESS.
--- NOTE | 2021-04-21 00:21 | NUR ---
PT GIVEN IM BENADRYL AND HALDOL WITH IMPROVEMENT IN AGITATION. RESPIRATIONS DOWN TO LOW 30'S. SATS 97%, PT BEGINNING TO SLEEP. INTERMITTENT AGITATION.
[2021-04-21 03:42] LABS: BASOPHILS ABSOLUTE AUTO 0.05 K/mm3 (0.00-0.23); BASOPHILS PERCENT AUTO 1 % (0-2); EOSINOPHILS ABSOLUTE AUTO 0.16 K/mm3 (0.00-0.68); EOSINOPHILS PERCENT AUTO 2 % (0-6); Hematocrit 28.5 % (33.0-51.0); Hemoglobin 8.8 g/dL (11.5-16.0); IMMATURE GRAN ABSOLUTE AUTO 0.06 K/mm3 (0.00-0.10); IMMATURE GRAN PERCENT AUTO 1 % (0-1); LYMPHOCYTES ABSOLUTE AUTO 2.35 K/mm3 (0.84-5.20); LYMPHOCYTES PERCENT AUTO 24 % (21-46); MONOCYTES ABSOLUTE AUTO 0.93 K/mm3 (0.16-1.47); MONOCYTES PERCENT AUTO 9 % (4-13); Mean Corpuscular HGB 29.7 pg (26.0-34.0); Mean Corpuscular HGB Conc 30.9 g/dL (31.5-36.5); Mean Corpuscular Volume 96 fL (80-100); Mean Platelet Volume 10.3 fL (9.1-12.4); NEUTROPHILS ABSOLUTE AUTO 6.39 K/mm3 (1.96-9.15); NEUTROPHILS PERCENT AUTO 64 % (41-73); Platelet Count 461 K/mm3 (150-400); RDW Coefficient Variation 14.5 % (11.7-14.2); RDW Standard Deviation 50.4 fL (35.1-46.3); Red Blood Cell Count 2.96 M/mm3 (3.80-5.20); White Blood Cell Count 9.94 K/mm3 (4.00-11.30)
[2021-04-21 04:01] LABS: Alanine Aminotransfer (ALT/SGP 49 U/L (12-78); Albumin, Blood 2.1 g/dL (3.4-5.0); Albumin/Globulin Ratio 0.5 (0.8-1.8); Alk Phos 77 U/L (50-136); Anion Gap 3 mmol/L (6-16); Aspartate Aminotrans (AST/SGOT 32 U/L (12-37); Bilirubin, Total 0.2 mg/dL (0.1-1.0); Blood Urea Nitrogen 8 mg/dL (8-24); Bun/Creatinine Ratio 18.4 (12.0-20.0); CO2, Blood 33 mmol/L (21-32); Calcium, Blood 8.5 mg/dL (8.5-10.1); Chloride, Blood 108 mmol/L (98-108); Creatinine, Blood 0.44 mg/dL (0.40-1.00); Glomerular Filtration Rate >60 (60-); Glucose, Blood 68 mg/dL (70-99); Potassium, Blood 4.3 mmol/L (3.5-5.5); Sodium, Blood 144 mmol/L (136-145); Total Protein, Blood 6.1 g/dL (6.4-8.2)
--- NOTE | 2021-04-21 04:16 | NUR ---
CANDE IS CURRENTLY RESTING WELL, EVEN RESPIRATIONS, VENT UNCHANGED, RATE 20'S, SATS >95%, LUNGS CLEAR. SKIN WARM, DRY. MOUTH OPEN, ORAL CARE COMPLETED. LEGS REPOSITIONED OFF THE RAILING, WARM BLANKET GIVEN. ABD QUIET. DIANE WITH CLEAR YELLOW RETURN.
--- NOTE | 2021-04-21 06:17 | NUR ---
CANDE HAS BEEN SLEEPING FOR THE MAJORITY OF THE SHIFT. SHE WAS GIVEN THE BENADRYL AND HALDOL AROUND MIDNIGHT AND SHE HAS BEEN ABLE TO SLEEP. HER HEART RATE, RESPIRATORY RATE AND SATURATIONS HAVE RETURNED TO NORMAL, SHE TOLERATED ORAL CARE AND MOVEMENT WITHOUT INCIDENT. SHE CONTINUES ON THE VENTILATOR, SPONTANEOUS WITH PS 12/5 40% FIO2 VIA TRACH. SHE HAS NOT HAD ANY FURTHER EMESIS OR COMPLAINTS OF ABDOMINAL PAIN. DIANE WITH GOOD URINE OUTPUT, TEMP WNL, SKIN WARM AND DRY. PRECEDEX @ 1.4MCG/KG/HR.
--- NOTE | 2021-04-21 12:12 | NUR ---
NURSE SPOKE WITH DR. ANDRADE AND DR. THORNTON. DOCTORS IN TO SEE PATIENT. MOTHER IN ROOM WITH PATIENT. INFORMED DR. ANDRADE THAT PATIENT ON COZAAR HERE AND ON LISINOPRIL AT HOME. INFORMED THAT BPS SOFT THIS AM, SO BP MED NOT GIVEN THIS AM. INFORMED THAT BLOOD SUGAR IN 60S THIS AM, BUT THAT NIGHT RN STATED PATIENT HAD VOMITED AFTER MEDS AND BOLUS FEEDING LAST NIGHT. ORDER RECEIVED TO DECREASE LONG ACTING INSULIN. INFORMED DR. THORNTON AND DR. ANDRADE THAT PATIENT ON PRECEDEX AT 1.4 MCG/ KG/ HOUR UPON START OF SHIFT AND THAT PATIENT DECREASED TO 1.0. INFORMED THAT PATIENT CONTINUES TO BE VERY ANXIOUS AND AGITATED AND HAS RECEIVED FENTANYL, HALDOL, BENADRYL AND PERCOCET THIS AM TO TRY AND HELP WITH PAIN AND AGITATION. INFORMED THAT PATIENT HAS BEEN TRYING TO GET OUT OF BED AND GRABBING AT THINGS IN BED. PATIENT VERY RESTLESS. INFORMED THAT PATIENT'S DAUGHTER CONCERNED THAT ATIVAN MAY BE MAKING HER CONFUSED. INFORMED THAT PATIENT TAKES 150 MG WELLBUTRIN DAILY AT HOME. DR. THORNTON STATED THAT DR. SMITH DC'D SCHEDULED WELLBUTRIN. DR. THORNTON STATED THAT SHE WILL CALL DR. SMITH AND SPEAK ABOUT NEXT ACTIONS TO TAKE TO HELP WITH AGITATION AND ANXIETY.
--- NOTE | 2021-04-21 12:44 | NUR ---
SPEECH AND LANGUAGE CLINICIAN CALLED AND INFORMED THAT PATIENT'S DAUGHTER WANTED TO MAKE SURE THAT [facility]NA WOULD BE COVERING FOR CARE AT [facility] IF PATIENT TRANSFERS THERE IN THE FUTURE. INFORMED THAT PATIENT'S DAUGHTER WOULD ALSO LIKE THEM TO LOOK INTO A FACILITY CALLED "[facility]" FOR CARE AFTER LEAVING HOSPITAL. SPEECH AND LANGUAGE CLINICIAN STATED THAT SHE WOULD INVESTIGATE.
--- NOTE | 2021-04-21 13:44 | NUR ---
CARE NOTE PT ALERT TO SELF AND FAMILY. SHE APPEARS CONFUSED, AGITATED AND RESTLESS. PT HAS BEEN MEDICATED PER EMAR FOR AGITATION AND PAIN AND IS NOW RESTING. SPO2 REMAINS >95%, VENT PRESSURE SUPPORT /5. WHEN PT BECOMES AGITATED, HR INCREASES TO 130'S. PT MOTHER AT BEDSIDE TO FACILITATE CALMING PATIENT. PRECEDEX NOW INFUSING AT 1.4 PER EMAR ORDERS. COUGH NOTED AND UPON SUCTION MODERATE AMOUNT OF SPUTUM NOTED. WILL CONTINUE TO MONITOR PAIN/ANXIETY LEVEL. BOLUS TUBE FEEDING OF 350 ALSO INFUSING PER ORDERS W/ 60 ML FLUSH BEFORE AND AFTER. WILL CONTINUE TO MONITOR.
--- NOTE | 2021-04-21 19:21 | NUR ---
SHIFT SUMMARY PT IS ALERT TO SELF BUT IS CONFUSED AND AGITATED. WHEN ASKED IF IN PAIN, PT NODS HEAD YES BUT IS UNABLE TO REPORT LOCATION. THIS NURSE TREATED PATIENT FOR ANXIETY, AGITATION AND PAIN PER EMAR ORDERS AND PT REMAINS CONFUSED, AGITATED, AND RESTLESS. WHEN AGITATED, PT DESATURATED TO 70-80'S. THIS NURSE WOULD HYPEROXYGENATE PT AND SATURATIONS WOULD RESUME TO >90. THIS NURSE WOULD ALSO ATTEMPT TO REORIENT PT, CALM PT DOWN, WELL ATTEMPT TO USE COMMUNICATION TOOL LOCATED IN ROOM. PT WAS UNWILLING TO USE COMMUNICATION TOOL SO TO REPORT NEEDS AND THEREFOR REMAINED AGITATED. PRECEDEX NOW RUNNING PER ORDERS AT 1.3 IN LEFT POWERGLIDE. DIANE CATHETER IS IN PLACE AND DRAINING W/ GRAVITY. TRACH CARE PROVIDED DURING SHIFT. GREENISH CRUSTY SPUTUM NOTED ON TRACH AND REMOVED. THREE BOLUS FEEDINGS PROVIDED DURING SHIFT PER ORDERS ALONG W/ ORDERED FLUSHES AND PATIENT TOLERATED WELL. ALL CHANGES IN PT STATUS REPORTED DURING HAND OFF REPORT TO KERMIT LUJAN AND COLETTE LUJAN.
[2021-04-22 03:59] LABS: BASOPHILS ABSOLUTE AUTO 0.07 K/mm3 (0.00-0.23); BASOPHILS PERCENT AUTO 1 % (0-2); EOSINOPHILS ABSOLUTE AUTO 0.24 K/mm3 (0.00-0.68); EOSINOPHILS PERCENT AUTO 3 % (0-6); Hematocrit 29.6 % (33.0-51.0); IMMATURE GRAN ABSOLUTE AUTO 0.05 K/mm3 (0.00-0.10); IMMATURE GRAN PERCENT AUTO 1 % (0-1); LYMPHOCYTES ABSOLUTE AUTO 2.59 K/mm3 (0.84-5.20); LYMPHOCYTES PERCENT AUTO 30 % (21-46); MONOCYTES ABSOLUTE AUTO 0.86 K/mm3 (0.16-1.47); MONOCYTES PERCENT AUTO 10 % (4-13); Mean Corpuscular HGB 29.6 pg (26.0-34.0); Mean Corpuscular HGB Conc 30.4 g/dL (31.5-36.5); Mean Corpuscular Volume 97 fL (80-100); Mean Platelet Volume 10.2 fL (9.1-12.4); NEUTROPHILS ABSOLUTE AUTO 4.76 K/mm3 (1.96-9.15); NEUTROPHILS PERCENT AUTO 56 % (41-73); Platelet Count 432 K/mm3 (150-400); RDW Coefficient Variation 14.4 % (11.7-14.2); RDW Standard Deviation 50.8 fL (35.1-46.3); Red Blood Cell Count 3.04 M/mm3 (3.80-5.20); White Blood Cell Count 8.57 K/mm3 (4.00-11.30)
[2021-04-22 04:18] LABS: Anion Gap 5 mmol/L (6-16); Blood Urea Nitrogen 9 mg/dL (8-24); Bun/Creatinine Ratio 22.1 (12.0-20.0); CO2, Blood 30 mmol/L (21-32); Calcium, Blood 9.1 mg/dL (8.5-10.1); Chloride, Blood 104 mmol/L (98-108); Creatinine, Blood 0.41 mg/dL (0.40-1.00); Glomerular Filtration Rate >60 (60-); Glucose, Blood 109 mg/dL (70-99); Potassium, Blood 4.5 mmol/L (3.5-5.5); Sodium, Blood 139 mmol/L (136-145)
--- NOTE | 2021-04-22 05:24 | NUR ---
Shift Summary Pt began the night in an anxious and agitated state. While in the room and verbally comforting the pt, RR remained in the low 20's and SpO2 >90%, after leaving the room pt would become more anxious with RR climbing to 40 and SpO2 would begin to fall to 70-80's. Medication via EMAR was given and the PT was able to fall asleep. During sleep, RR remained steady at 20-22, SpO2 >95%, and HR remained in the 70's. No other acute changes noted.
--- NOTE | 2021-04-22 08:38 | NUR ---
PATIENT ANXIOUS, AGITATED AND RESTLESS THIS AM. PRN HALDOL AND BENADRYL GIVEN. PATIENT REMAINS ON PRECEDEX AT 1.3 MCG/ KG/ HOUR. MOTHER, LEXIE, STATED YESTERDAY THAT SHE WOULD GOING TO GIVE PATIENT A BREAK TODAY BUT TO CALL HER IF PATIENT NEEDED HER TO COME IN. PATIENT ASKED IF IT WOULD HELP RELAX HER IF HER MOTHER WAS CALLED IN TO COME AND SIT WITH HER AND PATIENT NODDED "YES". MOTHER CALLED AND STATED SHE WOULD BE IN, IN ABOUT AN HOUR AND A HALF.
--- NOTE | 2021-04-22 09:36 | NUR ---
DR. THORNTON IN PATIENT ROOM. NURSE UPDATED DOCTOR ON PATIENT STATUS. INFORMED THAT AGITATION SEEMS TO BE THE ISSUE WITH GETTING PATIENT OFF OF VENT AND ON TO TRACH COLLAR. PATIENT SATS WELL ON 30% FIO2 WHEN SLEEPING SOUNDLY BUT SOON SHE IS AWAKE AND RESTLESS HER O2 IS IN LOW 80S WITH FIO2 AT 100%. DR. THORNTON DECREASED SPONTANEOUS PRESSURE SUPPORT TO 5/5 AND 30% FIO2. DR. THORNTON STATED TO DECREASE PRECEDEX DRIP TO 1.2 MCG/ KG/ HOUR AND TO KEEP AT THIS RATE UNTIL FURTHER INSTRUCTION. DR. THORNTON AWARE THAT DR. SMITH TOLD NURSE TO KEEP AT 1.3 UNTIL FURTHER INSTRUCTION FROM HIM TODAY. DR. SMITH'S NUMBER GIVEN TO DR. THORNTON. DR. THORNTON STATED SHE WOULD GIVE DR. SMITH A CALL THIS AM. WILL CONTINUE TO MONITOR.
--- NOTE | 2021-04-22 10:27 | NUR ---
ISTRATE UPDATED ON PATIENT STATUS. NO ORDERS RECEIVED AT THIS TIME. WILL CONTINUE TO MONITOR.
--- NOTE | 2021-04-22 10:51 | NUR ---
DAUGHTERLOYD, UPDATED ON PATIENT STATUS.
--- NOTE | 2021-04-22 18:03 | NUR ---
SHIFT SUMMARY PT HAS EXPERIENCED EPISODES OF ANXIETY, RESTLESSNESS AND AGITATION T/O SHIFT. THERE WERE PERIODS OF REST BUT THE PT DISPLAYED AGIATATION FOR MAJORITY OF SHIFT. AGITATION AND PAIN WERE TREATED PER EMAR. PT MOTHER REMAINED AT BEDSIDE FOR MAJORITY OF SHIFT. PT REMAINS ON SPONTANEOUS VENTILATION VIA TRACH COLLAR; PRESSURE SUPPORT IS 12/5, FIO2 @ 35%, AND SPO2 IS AT 100% NOW. WHEN AGITATED SPO2 WILL DROP TO 80'S. THIS AFTERNOON PT WAS ABLE TO EXPERIENCE SOME REST FOR APPROX 2 HOURS AND THEREFOR SATURATIONS REMAIN STABLE. THIS NURSE CONTINUED TO REORIENT AND PROVIDE COMFORT MEASURES SUCH FAN, REPOSITIONING, COOL COMPRESS. SBP RANGED 84-161, HR RANGED 69-153. PT TREATED FOR TACHYCARDIA PER EMAR AND REMAINS ON TELE. PT IN CHAIR FROM 10 TO APPROX. 1545 WHEN PHYSICAL THERAPY AMBULATED PT BACK TO BED W/ ASSISTANCE FROM THIS NURSE WELL CHARGE NURSE. PRECEDEX INFUSING PER ORDERS AT 1.2 MCG/KG/HR. SKIN AROUND PEG TUBE REMAINS CLEAN AND DRY. PT TOLERATED BOLUS TF WELL. DIANE CATHETER IS PATENT AND DRAINING CLEAR YELLOW OUTPUT. PT NOW RESTING. WILL CONTINUE TO MONITOR.
--- NOTE | 2021-04-22 18:25 | NUR ---
CARE NOTE PT AMBULATED FROM CHAIR TO BED AT APPROX. 1730. PHYSICAL THERAPY ASSISTED THIS NURSE WELL CHARGE NURSE ISAI. POSY VEST REMOVED AND PT CONTINUED TO HAVE EPISODES OF AGITATION AND CONFUSION BUT DID NOT PULL AT LINES/TUBES. PT WAS MEDICATED FOR AGITATION PER EMAR. MOTHER AT BEDSIDE PROVIDED OTHER COMFORT MEASURES SUCH BACK RUB. THIS NURSE CONTINUED TO ASSIST POSITIONING PT FOR COMFORT WELL PROVIDE COOL COMPRESS FOR FOREHEAD.
--- NOTE | 2021-04-22 18:33 | NUR ---
CARE NOTE AT APPROX. 1730 THIS NURSE SPOKE W/ DR. SMITH ABOUT LEAVING PRECEDEX RUNNING AT 1.2 UNTIL FURTHER NOTICE. THIS NURSE ALSO MENTIONED TO THAT PT WAS HAVING HALLUCINATIONS OF OBJECTS IN ROOM NEAR FLOOR. STATED THAT ZYPREXA, HALADOL, AND SERTRALINE ORDERED FOR PM WOULD HELP W/ HALLUCINATIONS. WILL CONTINUE TO MONITOR.
[2021-04-23 03:33] LABS: BASOPHILS ABSOLUTE AUTO 0.07 K/mm3 (0.00-0.23); BASOPHILS PERCENT AUTO 1 % (0-2); EOSINOPHILS ABSOLUTE AUTO 0.38 K/mm3 (0.00-0.68); EOSINOPHILS PERCENT AUTO 3 % (0-6); Hematocrit 31.5 % (33.0-51.0); Hemoglobin 9.8 g/dL (11.5-16.0); IMMATURE GRAN ABSOLUTE AUTO 0.04 K/mm3 (0.00-0.10); IMMATURE GRAN PERCENT AUTO 0 % (0-1); LYMPHOCYTES ABSOLUTE AUTO 3.11 K/mm3 (0.84-5.20); LYMPHOCYTES PERCENT AUTO 28 % (21-46); MONOCYTES ABSOLUTE AUTO 1.17 K/mm3 (0.16-1.47); MONOCYTES PERCENT AUTO 10 % (4-13); Mean Corpuscular HGB 29.2 pg (26.0-34.0); Mean Corpuscular HGB Conc 31.1 g/dL (31.5-36.5); Mean Corpuscular Volume 94 fL (80-100); NEUTROPHILS ABSOLUTE AUTO 6.49 K/mm3 (1.96-9.15); NEUTROPHILS PERCENT AUTO 58 % (41-73); Platelet Count 486 K/mm3 (150-400); RDW Coefficient Variation 14.2 % (11.7-14.2); RDW Standard Deviation 47.7 fL (35.1-46.3); Red Blood Cell Count 3.36 M/mm3 (3.80-5.20); White Blood Cell Count 11.26 K/mm3 (4.00-11.30)
[2021-04-23 03:58] LABS: Anion Gap 5 mmol/L (6-16); Blood Urea Nitrogen 10 mg/dL (8-24); CO2, Blood 30 mmol/L (21-32); Calcium, Blood 9.1 mg/dL (8.5-10.1); Chloride, Blood 103 mmol/L (98-108); Creatinine, Blood 0.48 mg/dL (0.40-1.00); Glomerular Filtration Rate >60 (60-); Glucose, Blood 102 mg/dL (70-99); Magnesium, Blood 2.2 mg/dL (1.6-2.4); Phosphorus, Blood 4.5 mg/dL (2.5-4.9); Potassium, Blood 3.7 mmol/L (3.5-5.5); Sodium, Blood 138 mmol/L (136-145)
--- NOTE | 2021-04-23 05:52 | NUR ---
Shift Summary Pt has had episodes of increased anxiety and agitation t/o the night. Pt had a few episodes of sleep that lasted less than an hour each. During episodes of agitation pt would desat to low 80%'s and would recover to >90% with hyperoxygenation. Pt attempted to climb out of bed multiple times and was difficult to reorient and redirect. A sharda vest was applied to prevent Pt from climbing out of bed and the Pt then began to pull at lines and was difficult to redirect and reorient. Repositioning and other comfort measures were attempted t/o the night to no apparent improvement. No other acute changes noted.
--- NOTE | 2021-04-23 08:58 | NUR ---
ASSUMPTION OF CARE NOTE PT HAS BEEN SLEEPING SINCE THIS NURSE ASSUMED CARE. SPO2 98% VIA TRACH/SPONTANEOUS VENTILATION; PRESSURE SUPPORT OF 12/5, FIO2 35%. PRECEDEX CONTINUES TO INFUSE PER ORDERS AT 1.2 MCG/KG/HR VIA LEFT POWERGLIDE. BOLUS TF NOW INFUSING PER ORDERS. BILATERAL SOFT WRIST RESTRAINTS IN PLACE, NO EVIDENCE OF SKIN BREAKDOWN OR AGITATION FROM RESTRAINTS. BED IN LOW. WILL CONTINUE TO MONITOR.
--- NOTE | 2021-04-23 10:59 | NUR ---
CARE NOTE THIS NURSE UPDATED DR. MALIK THORNTON ABOUT PT. STATUS AND RELAYED THAT PATIENT HAD RESTLESS NIGHT PER REPORT FROM FINDING FASTENER. INSTRUCTIONS TO TITRATE PRECEDEX TO 1.1 MCG/KG/MIN GIVEN. THIS NURSE ALSO SPOKE W/ DR. ANDRADE ABOUT RASH ON LOWER BACK AND SACRAL AREA. ORDERS PUT IN FOR BENADRYL AND TRIAMCINOLONE CREAM. WILL CONTINUE TO MONITOR RASH.
--- NOTE | 2021-04-23 18:24 | NUR ---
SHIFT SUMMARY PT REMAINED LETHARGIC FOR MAJORIY OF SHIFT. SHE WAS ALERT TO SELF AND PLACE. THERE WERE SOME MINOR EPISODES OF AGITATION THIS AM AND PT WAS TREATED PER EMAR ORDERS. PT REMAINS ON SPONTANEOUS VENTILATION VIA TRACH COLLAR, PRESSURE SUPPORT 07/02 AT 35% FIO2. SBP RANGED 75-104, HR 80-125. 125 HR WAS DURING BED BATH THIS AFTERNOON. PRECEDEX IS INFUSING PER ORDERS AT 1.1 MCG/KG/HR IN LEFT PICC LINE. RIGHT POWERGLIDE IS SALINE LOCKED. DIANE CATHETER IS IN PLACE AND DRAINING CLEAR YELLOW OUTPUT. BOLUS TF AND FLUSHES INFUSED VIA GI TUBE. THIS NURSE CLEANED SKIN UNDER GI TUBE; SKIN IS DRY/CLEAN W/ NO EVIDENCE OF SKIN BREAKDOWN NEAR GI TUBE. PT TOLERATED TF WELL AND DID NOT REFORT NAUSEA/VOMITTING DURING SHIFT. NO OTHER ACUTE CHANGES NOTED. PT NOW APPEARS TO BE SLEEPING. BED IN LOW, BED ALARM ON, CALL LIGHT IN REACH. WILL CONTINUE TO MONITOR UNTIL REPORT GIVEN.
--- NOTE | 2021-04-23 23:17 | NUR ---
Care Note Pt repeatedly attempted to get out of bed. After verbal intervention, pt pantomimed that they wanted to sit in the chair. After a max assist pivot transfer to the chair, the pt repeatedly attempted to get out of the chair unassisted. Pt spent approximately one hour in the chair with frequent verbal redirection and reorientation. This RN decided that for the safety of the pt they be transferred back to the bed. Pt become agitated and angry when told we were transferring back to the bed for their safety. HR spiked to 150's, RR to high 40's, and SpO2 fell to 85%. This RN attempted to calm the pt with communication and was unsuccessful. Medications were provided for HR and agitation and comfort measures were provided.
--- NOTE | 2021-04-24 01:45 | NUR ---
Care Note Pt has continued to attempt to climb out of bed. Comfort measures, redirection, and reorientation are mildly effective for a short time. Pt attempts to make needs known by pantomiming or mouthing words, refuses to use communication board, and grows frustrated with the communication barrier easily and quickly. SpO2 has been maintaining >90% on 35% FiO2. Trach suction returns scant amounts of thin sputum. Pt denies pain. When asked what can be done to improve comfort for rest and sleep, pt mouths "go away" and waves hands in a dismissive motion.
[2021-04-24 03:43] LABS: BASOPHILS ABSOLUTE AUTO 0.07 K/mm3 (0.00-0.23); BASOPHILS PERCENT AUTO 1 % (0-2); EOSINOPHILS ABSOLUTE AUTO 0.39 K/mm3 (0.00-0.68); EOSINOPHILS PERCENT AUTO 4 % (0-6); Hematocrit 29.6 % (33.0-51.0); Hemoglobin 9.1 g/dL (11.5-16.0); IMMATURE GRAN ABSOLUTE AUTO 0.05 K/mm3 (0.00-0.10); IMMATURE GRAN PERCENT AUTO 1 % (0-1); LYMPHOCYTES ABSOLUTE AUTO 2.92 K/mm3 (0.84-5.20); LYMPHOCYTES PERCENT AUTO 30 % (21-46); MONOCYTES ABSOLUTE AUTO 1.05 K/mm3 (0.16-1.47); MONOCYTES PERCENT AUTO 11 % (4-13); Mean Corpuscular HGB 29.4 pg (26.0-34.0); Mean Corpuscular HGB Conc 30.7 g/dL (31.5-36.5); Mean Corpuscular Volume 96 fL (80-100); Mean Platelet Volume 10.3 fL (9.1-12.4); NEUTROPHILS ABSOLUTE AUTO 5.17 K/mm3 (1.96-9.15); NEUTROPHILS PERCENT AUTO 54 % (41-73); Platelet Count 469 K/mm3 (150-400); RDW Coefficient Variation 14.6 % (11.7-14.2); RDW Standard Deviation 50.4 fL (35.1-46.3); White Blood Cell Count 9.65 K/mm3 (4.00-11.30)
[2021-04-24 04:00] LABS: Anion Gap 6 mmol/L (6-16); Blood Urea Nitrogen 11 mg/dL (8-24); Bun/Creatinine Ratio 24.2 (12.0-20.0); CO2, Blood 29 mmol/L (21-32); Chloride, Blood 104 mmol/L (98-108); Creatinine, Blood 0.46 mg/dL (0.40-1.00); Glomerular Filtration Rate >60 (60-); Glucose, Blood 88 mg/dL (70-99); Magnesium, Blood 2.2 mg/dL (1.6-2.4); Phosphorus, Blood 3.7 mg/dL (2.5-4.9); Potassium, Blood 4.1 mmol/L (3.5-5.5); Sodium, Blood 139 mmol/L (136-145)
--- NOTE | 2021-04-24 05:58 | NUR ---
Shift Summary Pt has been sleeping since approximately 0300. While asleep, pt is able to maintain SpO2 >93% on 30% FiO2. Pt has repositioned self several times with no assistance. Pt awoke on one occasion and attempted to climb out of bed and appeared to be quite confused but was successfully reoriented and calmed down verbally. VSS. No other acute changes noted.
--- NOTE | 2021-04-24 07:29 | NUR ---
ASSUMED CARE: PT RESTING AT THIS TIME. TRACH IN PLACE TO VENT, PS 12/5 AND 30% FIO2. TF VIA PEG TUBE. DIANE CATH IN PLACE. NO ACUTE NEEDS AT THIS TIME.
--- NOTE | 2021-04-24 10:43 | NUR ---
PT'S DAUGHTER IN LAW CALLED TO CHECK ON PT AND REQUESTED THAT WE LOOK INTO THE [facility] TO SEE IF PT QUALIFIES. SPOKE WITH DC EDI SPECIALISTFLACO SCHWARZ AND PALLIATIVE CARE REGARDING THIS. STAFF STATES THEY WILL LOOK INTO THIS RESOURCE TO SEE IF PT QUALIFIES. DR ANDRADE CAME TO SEE PT THIS AM WELL. NO ACUTE NEEDS AT THIS TIME.
--- NOTE | 2021-04-24 13:00 | NUR ---
ASSUMED CARE: Report recieved from Mahnaz LUJAN. Patient is OOB to the recliner. Coughing at times, coarse PC with thick yellow secretions via in line suction. LS coarse t/o, established trach with vent-pressure control settings pressure 20 with a PEEP of 5, FIO2 40%, biox 96% when patient is not tachypnec. VSS. Patient denies needs at this time. call light in reach. Tab alarm on for safety. Call light in reach, will continue to monitor.
--- NOTE | 2021-04-24 14:19 | NUR ---
REPORT GIVEN TO CHEVY LUJAN. NO ACUTE NEEDS OR CONCERNS AT THIS TIME.
--- NOTE | 2021-04-24 18:16 | NUR ---
SUMMARY: ASSUMED CARE OF PATIENT AT 1300. PT HAS BEEN OOB TO THE RECLINER SINCE I ASSUMED CARE. SHE IS ORIENTED TO SELF ONLY, TATI RN WAS ABLE TO SUCCESSFULLY TITRATE PRECEDEX GTT DOWN TO 1.0 TODAY. PT HAS STILL BEEN TACHYCARDIC, 120S AT REST AND UP INTO THE 160S WHEN TRANSFERRING TO THE [facility]. LS COARSE T/O INTERMITTENTLY, PT HAS HAD COPIUS AMOUNTS OF CRANDALL SECRETIONS VIA TRACH. PT CONTIUNES TO BE ON VENT WITH PRESSURE SETTINGS OF 12 PEEP 0F 5 AND FI02 40%, OXYGEN SATURATIONS HAVE BEEN IN THE HIGH 90S. OTHER VSS. DAUGHTER IN LAW HARP WAS PROVIDED WITH UPDATE THIS EVENING.
--- NOTE | 2021-04-24 20:08 | NUR ---
PATIENT AWAKE UP IN CHAIR, SLIGHTLY ANXIOUS AND LOOKING FOR "MY STUFF" COMMUNICATING WITH MOUTHING WORDS, GESTURING, AND WRITING NOTES. PATIENT REORIENTED TO BEING IN THE HOSPITAL AND SHOWN THE PERSONAL THINGS THAT ARE IN THE ROOM, AND THAT EVERYTHING OUTSIDE OF ROOM IS THE HOSPITAL THINGS. PATIENT ABLE TO BRUSH OWN TEETH WITH SUCTION TOOTH BRUSH. HEART RATE UP TO 120'S WITH ACTIVITY. PATIENT NOW MORE RELAXED, PATIENT NOW USING PHONE AND COMMUNICATING WITH FAMILY. TRACH IN PLACE AND MIDLINE WITH VENT SPONT 12/5 FIO2 40% SUCTIONING WHITE AND CLEAR SECRETIONS. PEG TUBE IN PLACE BOLUS FEEDINGS WITH JEVITY 1.5
--- NOTE | 2021-04-24 21:30 | NUR ---
PATIENT TRANSFER TO BSC AND TRANSFER TO BED AFTER PASSING LARGE AMT OF FLATUS. LEGS VERY WEAK AND POOR COORDINATION. HEART RATE UP TO 160'S VENT PLACED TO 100% DURING TRANSFER.
[2021-04-25 04:27] LABS: BASOPHILS ABSOLUTE AUTO 0.08 K/mm3 (0.00-0.23); BASOPHILS PERCENT AUTO 1 % (0-2); EOSINOPHILS ABSOLUTE AUTO 0.41 K/mm3 (0.00-0.68); EOSINOPHILS PERCENT AUTO 5 % (0-6); Hematocrit 28.4 % (33.0-51.0); Hemoglobin 8.6 g/dL (11.5-16.0); IMMATURE GRAN ABSOLUTE AUTO 0.03 K/mm3 (0.00-0.10); IMMATURE GRAN PERCENT AUTO 0 % (0-1); LYMPHOCYTES ABSOLUTE AUTO 2.42 K/mm3 (0.84-5.20); LYMPHOCYTES PERCENT AUTO 28 % (21-46); MONOCYTES ABSOLUTE AUTO 0.89 K/mm3 (0.16-1.47); MONOCYTES PERCENT AUTO 10 % (4-13); Mean Corpuscular HGB 29.3 pg (26.0-34.0); Mean Corpuscular HGB Conc 30.3 g/dL (31.5-36.5); Mean Corpuscular Volume 97 fL (80-100); NEUTROPHILS PERCENT AUTO 56 % (41-73); Platelet Count 458 K/mm3 (150-400); RDW Coefficient Variation 14.6 % (11.7-14.2); RDW Standard Deviation 50.8 fL (35.1-46.3); Red Blood Cell Count 2.94 M/mm3 (3.80-5.20); White Blood Cell Count 8.73 K/mm3 (4.00-11.30)
[2021-04-25 04:49] LABS: Anion Gap 5 mmol/L (6-16); Blood Urea Nitrogen 13 mg/dL (8-24); Bun/Creatinine Ratio 29.7 (12.0-20.0); CO2, Blood 32 mmol/L (21-32); Calcium, Blood 8.6 mg/dL (8.5-10.1); Chloride, Blood 104 mmol/L (98-108); Creatinine, Blood 0.44 mg/dL (0.40-1.00); Glomerular Filtration Rate >60 (60-); Glucose, Blood 97 mg/dL (70-99); Magnesium, Blood 2.6 mg/dL (1.6-2.4); Phosphorus, Blood 4.1 mg/dL (2.5-4.9); Potassium, Blood 3.8 mmol/L (3.5-5.5); Sodium, Blood 141 mmol/L (136-145)
--- NOTE | 2021-04-25 06:05 | NUR ---
SUMMARY PATIENT SLEEPING OFF AND ON T/O NIGHT. ANXIETY MORE CONTROLLED DURING THE NIGHT COMPARED TO SATURDAY NIGHT. PRECEDEX 1 MCG/KG/MEN AWAKENS EASILY, MAKING NEEDS KNOWN BY MOUTHING WORDS AND GESTURES. TRACH REMAINS MIDLINE WITH DRESSING CD&I, VENT REMAINS UNCHANGED SPONT 07/02 FIO2 40% SUCTIONING SMALL AMT OF CLEAR TO WHITE SPUTUM VIA TRACH. HEART RATE AND RESP CONTINUE TO GO UP WITH ACTIVITY, RETURNING TO NORMAL WHEN RELAXED, NO PRN MEDICATIONS NEEDED DURING THE NIGHT. G TUBE IN PLACE WITH DRESSING CD&I FOR BOLUS FEEDINGS AND MEDICATIONS. MOM GIVEN LAST NIGHT CONTINUES TO NOT HAVE BM.
--- NOTE | 2021-04-25 12:08 | NUR ---
REASSESSMENT PT HAS BEEN UP IN THE CHAIR FOR THE MORNING. SHE GOT UP TO THE COMMODE THINKING SHE NEEDED TO HAVE A BM, BUT ONLY PASSED GAS. PT REFUSED FURTHER BOWEL CARE THIS MORNING SAYING THAT SHE HAS HAD A BM AT LEAST EVERY OTHER DAY DESPITE THE LAST BM BEING CHARTED ON THE . PT HAS BEEN A LITTLE CONFUSED AT TIMES THIS MORNING. ONCE SHE ASKED THE PRINCIPAL NETWORK ENGINEER TO CHECK AND MAKE SURE SHE TURNED THE STOVE OFF IN THE KITCHEN. SHE HAS BEEN COMMUNICATING BY MOUTHING WORDS OR WRITING. SHE GETS FRUSTRATED EASILY AND ANXIOUS QUICKLY. WITH ANY ACTIVITY HER HR GOES UP TO 120-150S AND RESP RATE GOES TO THE 50S. IT TAKES HER ABOUT 5 MINTUES TO RELAX AND RETURN TO NORMAL. HER LUNGS ARE COARSE. TOLERATING BOLUS FEEDS. SPEECH THERAPY SAW HER AND OK'D CRUSHED MEDS WITH APPLESAUCE, BUT PT'S RESP RATE WAS IN THE 30S AND 40S WHEN PILLS WERE DUE SO GAVE MEDS THROUGH PEG TUBE. SPOKE WITH PT'S DAUGHTER IN LAW, LOYD AND PROVIDED UPDATE THIS MORNING. CONTINUING TO MONITOR.
--- NOTE | 2021-04-25 16:52 | NUR ---
SHIFT SUMMARY PT HAS BEEN SITTING UP IN THE CHAIR ALL DAY. SHE IS ALERT, ORIENTED TO SELF CONSISTENTLY, SOMETIMES TO PLACE. SHE OCCASIONALLY HAS HALLUCINATIONS. THIS AFTERNOON SHE WAS TRYING TO CALL A DOG THAT SHE WAS SEEING. HER ANXIETY SEEMS TO HAVE BEEN BETTER CONTROLLED TODAY. HER HR AND RESP RATE WENT UP WITH ACTIVITY BUT RECOVERED WITHIN 5 MINUTES. LUNGS ARE CLEAR THIS AFTERNOON. BP STABLE. DIANE WITH CL DARK YELLOW URINE. TOELRATING TUBE FEED. PASSING GAS. CONTINUING TO MONITOR.
--- NOTE | 2021-04-25 22:57 | NUR ---
PATIENT AWAKE, KING OCCASIONALLY SHACKY WHEN USING CELL PHONE. MOUTHING WORDS AND GESTURING TO MAKE NEEDS KNOWN. AT TIMES RESTLESS AND PULLING AT TRACH AND PEG TUBE, NEEDING OCCASIONAL REMINDERS REGARDING THE NEED FOR ALL OF HER LINES AND TUBES. BED ALARM ON DUE TO PATIENT SPONTANEOUS AND IMPULSIVE ATTEMPTING TO GET OUT OF BED WITHOUT ASSISTANCE. TRACH IN PLACE AND MIDLINE, VENT SPONT 12/5 FIO2 30% SUCTIONING THIN CLEAR SPUTUM VIA TRACH. PEG TUBE CLEANSED WITH STERILE WATER AND SPLIT GAUZE DRESSING CHANGED. BOLUS TUBE FEEDING CONTINUES. HEART RATE UP TO 160'S WHEN RESTLESS AND UPSET. APPEARS TO HELP WITH ANXIETY TO INCREASE OXYGEN TO 100% WHILE REPOSITIONING. PRECEDEX 0.9 MCG CONTINUES.
[2021-04-26 04:42] LABS: BASOPHILS ABSOLUTE AUTO 0.08 K/mm3 (0.00-0.23); BASOPHILS PERCENT AUTO 1 % (0-2); EOSINOPHILS ABSOLUTE AUTO 0.37 K/mm3 (0.00-0.68); EOSINOPHILS PERCENT AUTO 5 % (0-6); Hematocrit 26.9 % (33.0-51.0); Hemoglobin 8.2 g/dL (11.5-16.0); IMMATURE GRAN ABSOLUTE AUTO 0.02 K/mm3 (0.00-0.10); IMMATURE GRAN PERCENT AUTO 0 % (0-1); LYMPHOCYTES ABSOLUTE AUTO 2.33 K/mm3 (0.84-5.20); LYMPHOCYTES PERCENT AUTO 34 % (21-46); MONOCYTES ABSOLUTE AUTO 0.75 K/mm3 (0.16-1.47); MONOCYTES PERCENT AUTO 11 % (4-13); Mean Corpuscular HGB 29.3 pg (26.0-34.0); Mean Corpuscular HGB Conc 30.5 g/dL (31.5-36.5); Mean Corpuscular Volume 96 fL (80-100); Mean Platelet Volume 9.9 fL (9.1-12.4); NEUTROPHILS ABSOLUTE AUTO 3.34 K/mm3 (1.96-9.15); NEUTROPHILS PERCENT AUTO 48 % (41-73); Platelet Count 425 K/mm3 (150-400); RDW Coefficient Variation 14.7 % (11.7-14.2); RDW Standard Deviation 51.8 fL (35.1-46.3); White Blood Cell Count 6.89 K/mm3 (4.00-11.30)
[2021-04-26 04:59] LABS: Anion Gap 4 mmol/L (6-16); Blood Urea Nitrogen 13 mg/dL (8-24); Bun/Creatinine Ratio 27.7 (12.0-20.0); CO2, Blood 33 mmol/L (21-32); Calcium, Blood 8.4 mg/dL (8.5-10.1); Chloride, Blood 104 mmol/L (98-108); Creatinine, Blood 0.47 mg/dL (0.40-1.00); Glomerular Filtration Rate >60 (60-); Glucose, Blood 93 mg/dL (70-99); Magnesium, Blood 2.8 mg/dL (1.6-2.4); Phosphorus, Blood 4.1 mg/dL (2.5-4.9); Potassium, Blood 3.7 mmol/L (3.5-5.5); Sodium, Blood 141 mmol/L (136-145)
--- NOTE | 2021-04-26 06:00 | NUR ---
SUMMARY PATIENT RESTING QUIETLY AFTER HS MEDICATIONS COMPLETE. TRACH REMAINS IN PLACE WITH VENT SPONT 12/5 FIO2 30% LUNG SOUNDS COARSE DURING THE NIGHT SUCTIONING SMALL AMT OF CLEAR TO WHITE SPUTUM VIA TRACH. PRECEDEX 0.9 MCG CONTINUES. PEG TUBE IN PLACE FOR BOLUS FEEDINGS AND MEDICATIONS. PIOTR MEDS VIA TUBE WITHOUT DIFFICULTY. REPOSITIONING SELF IN BED FOR COMFORT, BED ALARM REMAINS ON DUE TO OCCASIONAL IMPULSIVE BEHAVIOR.
--- NOTE | 2021-04-26 17:50 | NUR ---
SUMMARY PT ON VENT VIA TRACH. ON SPONTANEOUS PS DOWN TO 10 FROM 12 TODAY. PT IS ANXIOUS MOST OF THE TIME BUT IS MANAGING WITH CURRENT MEDS. SHE DOES FIDGET A LOT. PRECEDEX DOWN FROM 0.9 TO 0.7MCG/KG/MIN TODAY. DR. BRADLEY SAID TO LEAVE IT THERE FOR AT LEAST 24HRS BEFORE DECREASING AGAIN. TOLERATING BOLUS FEEDS. WAS UP TO CHAIR MOST OF THE DAY AND DID WELL. 1-2 PERSON ASSIST DEPENDING ON HOW TIRED SHE IS. NO OTHER ACUTE CHANGES THIS SHIFT.
--- NOTE | 2021-04-26 21:00 | NUR ---
ASSUMING PT CARE: PT RESTING IN BED, LAYING SUPINE & SITTING IN SEMI-FOWLERS. VENT: SPONT PS 10, 5/30%. PT ABLE TO MOUTH WORDS & GESTURE W/ HANDS FOR NEEDS. APPEARS VERY ANXIOUS & CONFUSED @ TIMES. OFTEN POINTING @ VENT & PUMPS & OTHER EQUIPMENT MOUTHING, "WHAT IS THAT FOR?". UP TO BSC W/ 2P ASSIST, PT IS VERY WEAK. +MED, FORMED BM. AFTER BACK TO BED, PT MEDICATED FOR ANXIETY & TACHYCARDIA IN THE 150s. PT HAS BEEN TACHY IN THE 130s @ RECEIVING REPORT @ 1900. HR PROGRESSIVELY INCREASED AFTER SEVERAL EPISODES OF COUGHING. NOW 1-teens. BOLUS FEED STARTED & SHORTLY AFTER PT REPORTED NAUSEA & HAD SM AMT OF EMESIS. MEDICATED FOR NAUSEA. WILL CONTINUE TO MONITOR & REPORT APPROPRIATE.
--- NOTE | 2021-04-27 00:20 | NUR ---
UPDATE: PT CONTINUES TO BE VERY ANXIOUS, PULLING @ EQUIP & TRYING TO GET OUT OF BED. STAFF @ BEDSIDE SEVERAL TIMES TO RESPOND TO BED ALARM & ASSIST PT BACK TO BED. W/ ACTIVITY, HR INC TO 130s, WHEN AT REST HR RETURNS TO 110. PT REQUIRES REPEATED REMINDERS TO STAY IN BED FOR SAFETY. SHE IS NOW RESTING SOUNDLY.
[2021-04-27 03:50] LABS: BASOPHILS ABSOLUTE AUTO 0.07 K/mm3 (0.00-0.23); BASOPHILS PERCENT AUTO 1 % (0-2); EOSINOPHILS ABSOLUTE AUTO 0.29 K/mm3 (0.00-0.68); EOSINOPHILS PERCENT AUTO 4 % (0-6); Hematocrit 27.4 % (33.0-51.0); Hemoglobin 8.3 g/dL (11.5-16.0); IMMATURE GRAN ABSOLUTE AUTO 0.02 K/mm3 (0.00-0.10); IMMATURE GRAN PERCENT AUTO 0 % (0-1); LYMPHOCYTES PERCENT AUTO 32 % (21-46); MONOCYTES ABSOLUTE AUTO 0.76 K/mm3 (0.16-1.47); MONOCYTES PERCENT AUTO 11 % (4-13); Mean Corpuscular HGB 29.2 pg (26.0-34.0); Mean Corpuscular HGB Conc 30.3 g/dL (31.5-36.5); Mean Corpuscular Volume 97 fL (80-100); Mean Platelet Volume 9.8 fL (9.1-12.4); NEUTROPHILS ABSOLUTE AUTO 3.72 K/mm3 (1.96-9.15); NEUTROPHILS PERCENT AUTO 52 % (41-73); Platelet Count 442 K/mm3 (150-400); RDW Coefficient Variation 15.1 % (11.7-14.2); RDW Standard Deviation 52.5 fL (35.1-46.3); Red Blood Cell Count 2.84 M/mm3 (3.80-5.20); White Blood Cell Count 7.16 K/mm3 (4.00-11.30)
--- NOTE | 2021-04-27 04:00 | NUR ---
PT CONTINUES TO SLEEP SOUNDLY. AWAKENS @ RN ROUNDING & QUICKLY RETURNS TO SLEEPING. HR CONTINUES TO BE CONTROLLED IN THE LOW 90s. SPO2 98% ON 30% FiO2. NO ACUTE CHANGES.
[2021-04-27 04:10] LABS: Alanine Aminotransfer (ALT/SGP 24 U/L (12-78); Albumin, Blood 2.2 g/dL (3.4-5.0); Albumin/Globulin Ratio 0.6 (0.8-1.8); Alk Phos 95 U/L (50-136); Anion Gap 3 mmol/L (6-16); Aspartate Aminotrans (AST/SGOT 12 U/L (12-37); Bilirubin, Total 0.2 mg/dL (0.1-1.0); Blood Urea Nitrogen 11 mg/dL (8-24); Bun/Creatinine Ratio 23.3 (12.0-20.0); CO2, Blood 33 mmol/L (21-32); Calcium, Blood 8.6 mg/dL (8.5-10.1); Chloride, Blood 106 mmol/L (98-108); Creatinine, Blood 0.47 mg/dL (0.40-1.00); Globulin, Blood 3.5 g/dL (2.2-4.0); Glomerular Filtration Rate >60 (60-); Glucose, Blood 89 mg/dL (70-99); Magnesium, Blood 2.6 mg/dL (1.6-2.4); Phosphorus, Blood 5.3 mg/dL (2.5-4.9); Potassium, Blood 3.8 mmol/L (3.5-5.5); Sodium, Blood 142 mmol/L (136-145); Total Protein, Blood 5.7 g/dL (6.4-8.2)
--- NOTE | 2021-04-27 05:54 | NUR ---
SHIFT SUMMARY: PT RESTING SOUNDLY IN BED. VENT: SPONT 10/, 35%. TVs 350-400s. SPO2 98%. NO COUGHING FITS OBSERVED AFTER PT FELL ASLEEP @ APPROX 0030. SCANT WHITE/CLEAR THIN SECRETIONS FROM TRACH. BOLUS FEED GIVEN ORDERED. +BM THIS SHIFT. 850ml URINE OUTPUT. MORNING ATIVAN & PAIN MEDS HELD PT IS SLEEPING SOUNDLY. SEE PREVIOUS NOTATION FOR PT PROGRESSION. WILL CONTINUE TO MONITOR UNTIL REPORT OFF TO ONCOMING RN.
--- NOTE | 2021-04-27 18:13 | NUR ---
SUMMARY PT WAS ON VENT TO TRACH UNTIL THIS EVENING. DR. RICKS CAME BY AND WANTED PT TO BE TRIALED ON T-PIECE. PT PLACED ON T-PIECE 10L 40% AND DOING WELL. MIGHT HAVE TO GO BACK ON VENT FOR NIGHT. PRECEDEX WAS TURNED DOWN TO 0.5MCG/KG/MIN FROM 0.7 AND PT IS TOLERATING WELL. SHE HAS BEEN LESS FIDGETY TODAY. HR HAS BEEN 110-120'S MOST OF THE DAY UNLESS UP TRANSFERING. ABLE TO USE PHONE TO FACETIME FAMILY. SISTER SAT WITH HER MOST OF THE DAY WHICH SHE ENJOYED. PT WAS ABLE TO TRANSFER FROM BED TO CHAIR AND COMMODE MULTIPLE TIMES. PT IS STRONGER THAN YESTERDAY ONLY USING 1 PERSON ASSIST AND LEGS ARE NOT BUCKLING. ST WORKED WITH PT TODAY AND CLEARED HER FOR PUREE DIET. WILL CONTINUE TUBE FEEDS UNTIL PT IS ABLE TO TAKE ADEQUATE INTAKE. NO OTHER ACUTE CHANGES THIS SHIFT. USING CALL LIGHT APPROPRIATELY.
--- NOTE | 2021-04-27 20:55 | NUR ---
UPDATE: RAMBO DRAKE. @ SHIFT CHANGE PT HAD T-PIECE IN PLACE W/ 40%FiO2 W/ BIOX >92%. RAMBO UPDATED & WOULD LIKE PT TO BE PLACED BACK ON THE VENT FOR BEDTIME TO NOT TIRE THE PT TOO MUCH W/ HER 1st COURSE OF THE VENT. PT MEDICATED W/ NIGHTTIME MEDS & RT @ BEDSIDE TO PLACE PT BACK ON VENT. NOW ON SPONT 05/02, 35% W/ BIOX >95%. PT CONTINUES TO BE ANXIOUS & EASILY FRUSTRATED BUT APPEARS MUCH LESS ANXIOUS THAN LAST NIGHT. WILL CONTINUE TO MONITOR & REPORT APPROPRIATE.
--- NOTE | 2021-04-28 | NUR ---
UPDATE: PT CONTINUES TO REST, RR EVEN & UNLABORED. VENT UNCHANGED. TVs 300-450s. SPO2 >92%. NO ACUTE CHANGES.
[2021-04-28 03:53] LABS: BASOPHILS ABSOLUTE AUTO 0.09 K/mm3 (0.00-0.23); BASOPHILS PERCENT AUTO 1 % (0-2); EOSINOPHILS ABSOLUTE AUTO 0.43 K/mm3 (0.00-0.68); EOSINOPHILS PERCENT AUTO 5 % (0-6); Hematocrit 31.4 % (33.0-51.0); Hemoglobin 9.6 g/dL (11.5-16.0); Mean Corpuscular HGB 29.4 pg (26.0-34.0); Mean Corpuscular HGB Conc 30.6 g/dL (31.5-36.5); Mean Corpuscular Volume 96 fL (80-100); Mean Platelet Volume 9.7 fL (9.1-12.4); Platelet Count 514 K/mm3 (150-400); RDW Coefficient Variation 15.1 % (11.7-14.2); RDW Standard Deviation 52.8 fL (35.1-46.3); Red Blood Cell Count 3.27 M/mm3 (3.80-5.20)
[2021-04-28 03:56] LABS: IMMATURE GRAN ABSOLUTE AUTO 0.03 K/mm3 (0.00-0.10); IMMATURE GRAN PERCENT AUTO 0 % (0-1); LYMPHOCYTES ABSOLUTE AUTO 4.11 K/mm3 (0.84-5.20); LYMPHOCYTES PERCENT AUTO 43 % (21-46); MONOCYTES PERCENT AUTO 11 % (4-13); NEUTROPHILS ABSOLUTE AUTO 3.84 K/mm3 (1.96-9.15); NEUTROPHILS PERCENT AUTO 41 % (41-73)
[2021-04-28 04:11] LABS: Alanine Aminotransfer (ALT/SGP 28 U/L (12-78); Albumin, Blood 2.5 g/dL (3.4-5.0); Albumin/Globulin Ratio 0.6 (0.8-1.8); Alk Phos 121 U/L (50-136); Anion Gap 7 mmol/L (6-16); Aspartate Aminotrans (AST/SGOT 19 U/L (12-37); Bilirubin, Total 0.2 mg/dL (0.1-1.0); Blood Urea Nitrogen 10 mg/dL (8-24); Bun/Creatinine Ratio 20.3 (12.0-20.0); CO2, Blood 30 mmol/L (21-32); Calcium, Blood 8.8 mg/dL (8.5-10.1); Chloride, Blood 104 mmol/L (98-108); Creatinine, Blood 0.49 mg/dL (0.40-1.00); Glomerular Filtration Rate >60 (60-); Glucose, Blood 107 mg/dL (70-99); Magnesium, Blood 2.1 mg/dL (1.6-2.4); Phosphorus, Blood 4.4 mg/dL (2.5-4.9); Potassium, Blood 3.9 mmol/L (3.5-5.5); Sodium, Blood 141 mmol/L (136-145); Total Protein, Blood 6.5 g/dL (6.4-8.2)
--- NOTE | 2021-04-28 06:06 | NUR ---
SHIFT SUMMARY: PT WAS ABLE TO SLEEP RELATIVELY WELL FOR SHORT PERIODS OF TIME. AWAKENING W/ RN ROUNDING & AT TIMES W/ ANXIETY, COUGHING, & ONCE TO USE THE BSC. SHE APPEARS TO BE RESTING MUCH MORE COMFORTABLY AFTER BM. ANXIETY & AGITATION APPEARS TO HAVE IMPROVED COMPARED TO LAST NIGHT. VENT CONTINUES ON SPONTANEOUS 05/02, 35%. SPO2 >95%. TVs 350-400s. PLAN TO CHANGE PT TO T-PIECE IN THE DAY TIME ONCE PT IS MORE AWAKE. NO ACUTE NEG CHANGES. WILL CONTINUE TO MONITOR UNTIL REPORT OFF TO ONCOMING RN.
--- NOTE | 2021-04-28 07:17 | NUR ---
ASSUMED CARE: PT RESTING QUIETLY ON VENT VIA TRACH. PS 10/5 AND 30% FIO2. PEG TUBE FOR BOLUS FEEDINGS. DIANE IN PLACE FOR STRICT I AND O AND NIGHT RN REPORTS THAT IT WAS NOT REMOVED DUE TO PT'S SAFETY. DESATS AND BECOMES TACHYPNEIC AND TACHYCARDIC WITH ACTIVITY. NO ACUTE NEEDS AT THIS TIME.
--- NOTE | 2021-04-28 08:27 | NUR ---
Alerted to spo2 in 70s. Gloria Colon RN, assisting pt with 100 fio2 for 2 minutes and to sit up in bed, she c/o nausea and did vomit. spo2 now 92% after receiving 4 mg zofran IV.
--- NOTE | 2021-04-28 18:11 | NUR ---
SHIFT SUMMARY: PT HAS BEEN ON TRACH COLLAR SINCE 11AM. TOLERATING WELL AT 40% FIO2. MEDICATED X1 FOR TACHYCARDIA AND ANXIETY WELL SCHEDULED ANXIETY MEDS. DIANE CATHETER REMOVED DUE TO PT WORKING WELL WITH STANDING AND TRANSFERS THIS SHIFT, EVEN TO THE POINT OF TAKING STEPS WHEN WORKING WITH STAFF. PRECEDEX GTT AT 0.[address] RICKS'S INSTRUCTIONS. PT'S DAUGHTER IN LAW CAME TO SEE HER THIS SHIFT. NO FURTHER NEEDS OR CONCERNS AT THIS TIME.
--- NOTE | 2021-04-28 22:22 | NUR ---
ASSUMED CARE AT 1900 PT UP IN A CHAIR, WATCHING TV WHEN ARRIVED TO SHIFT. PT NONVERBAL DUE TO TRACH BUT IS ABLE TO COMMUNICATE WITH MOUTHING WORDS AND WRITING DOWN ANSWERS; ABLE TO USE CALL LIGHT APPROPRIATLY. ON TRACH COLLAR WITH SETTINGS 10L, FIO2 40%; PLAN TO CONT TRACH COLLAR LONG PT TOLERATES; DRY HACKING COUGH NOTED. SINUS TACH WITH HR 100-120. SBP 140'S. PEG TUBE IN PLACE WITH TUBE FEEDINGS FINISHING. DIANE REMOVED EARLIER TODAY; SMALL AMOUNT OF URINE OUTPUT NOTED SO FAR; WILL CONT TO MONITOR. OCCATIONALLY ANXIOUS; PRECEDEX INFUSING AT 0.4MCG/KG/HR. SEE SHIFT ASSESSMENT FOR FULL ASSESSMENT.
--- NOTE | 2021-04-29 05:00 | NUR ---
Assumed care/shift summary. Report recieved by Brittani LUJAN. Assumed care at 0405. Pt continues in bed, sedated, with trach. Oxygen 12 L/min via trach collar. Precedex running at 0.4 mcg/kg/hr. Peg tube in place, clamped. Loja catheter in place, draining yellow urine. Pt is alert, able to follow commands but has difficulty communicating due to trach. Pt weak but able to transfer to bedside commode with assistance. No acute needs noted, will continue to monitor and report off to dayshift RN. See shift assessment for futher details.
--- NOTE | 2021-04-29 06:58 | NUR ---
ASSUMED CARE: PT RESTING QUIETLY AT THIS TIME. TRACH COLLAR IN PLACE AT 40%. PRECEDEX GTT AT 0.4MCG/KG AT THIS TIME. SINUS TACH IN 1TEENS ON TELE. NO FURTHER NEEDS OR CONCERNS AT THIS TIME.
--- NOTE | 2021-04-29 18:10 | NUR ---
SHIFT SUMMARY: PT HAS BEEN UP IN A CHAIR THIS AFTERNOON AFTER WORKING WITH PHYSICAL THERAPY. SISTER AT BEDSIDE. DRESSING TO WOUND ON COCCYX CHANGED THIS SHIFT AND SKIN CARE APPLIED TO FLAKING SKIN/RASH ON BUTTOCKS. PT REMAINS ON TRACH COLLAR AT 40% THIS SHIFT. TRACH CHANGED TO FENESTRATED UNCUFFED AND SPEECH WORKED WITH PT BUT WAS UNABLE TO KEEP PASSEY MEUIR ON FOR MORE THAN A FEW MINUTES DUE TO DESATURATIONS WITH THIS. CATH FLOW CURRENTLY HOLDING IN PICC LINE AND PICC NURSE TO RETURN TO REMOVE IT. LABS WILL FOLLOW AFTER LINE PATENT AGAIN. PT SITTING UP IN CHAIR AT THIS TIME. NO FURTHER NEEDS OR CONCERNS
--- NOTE | 2021-04-29 19:00 | NUR ---
Assumed care. Bedside report recieved. Pt in recliner at this time. On trach collar, 40% Fi02, 10 L/min. Precedex running at 0.3 mcg/kg/hr. Patient watching TV, denies any immediate needs. Will continue to monitor, see shift assessment for details.
[2021-04-29 21:25] LABS: BASOPHILS ABSOLUTE AUTO 0.08 K/mm3 (0.00-0.23); BASOPHILS PERCENT AUTO 1 % (0-2); EOSINOPHILS ABSOLUTE AUTO 0.27 K/mm3 (0.00-0.68); EOSINOPHILS PERCENT AUTO 3 % (0-6); Hematocrit 31.3 % (33.0-51.0); Hemoglobin 9.5 g/dL (11.5-16.0); IMMATURE GRAN ABSOLUTE AUTO 0.02 K/mm3 (0.00-0.10); IMMATURE GRAN PERCENT AUTO 0 % (0-1); LYMPHOCYTES ABSOLUTE AUTO 2.53 K/mm3 (0.84-5.20); LYMPHOCYTES PERCENT AUTO 26 % (21-46); MONOCYTES ABSOLUTE AUTO 0.82 K/mm3 (0.16-1.47); MONOCYTES PERCENT AUTO 8 % (4-13); Mean Corpuscular HGB 29.1 pg (26.0-34.0); Mean Corpuscular HGB Conc 30.4 g/dL (31.5-36.5); Mean Corpuscular Volume 96 fL (80-100); Mean Platelet Volume 9.8 fL (9.1-12.4); NEUTROPHILS ABSOLUTE AUTO 6.14 K/mm3 (1.96-9.15); NEUTROPHILS PERCENT AUTO 62 % (41-73); Platelet Count 493 K/mm3 (150-400); Red Blood Cell Count 3.26 M/mm3 (3.80-5.20); White Blood Cell Count 9.86 K/mm3 (4.00-11.30)
[2021-04-29 21:41] LABS: Albumin, Blood 2.5 g/dL (3.4-5.0); Anion Gap 5 mmol/L (6-16); Blood Urea Nitrogen 11 mg/dL (8-24); Bun/Creatinine Ratio 24.6 (12.0-20.0); CO2, Blood 34 mmol/L (21-32); Calcium, Blood 8.9 mg/dL (8.5-10.1); Chloride, Blood 99 mmol/L (98-108); Creatinine, Blood 0.45 mg/dL (0.40-1.00); Glomerular Filtration Rate >60 (60-); Glucose, Blood 156 mg/dL (70-99); Magnesium, Blood 2.2 mg/dL (1.6-2.4); Phosphorus, Blood 4.2 mg/dL (2.5-4.9); Potassium, Blood 4.1 mmol/L (3.5-5.5); Sodium, Blood 138 mmol/L (136-145)
--- NOTE | 2021-04-30 06:04 | NUR ---
Shift summary. Pt continued on trach collar and sedation through shift. Trach collar 40% Fi02, 10 L/min, Precedex running at 0.3 mcg/kg/hr. PICC line in place BRIAN. Peg Tube in place. Patient was able to sleep during shift, easily arousable, calm and cooperative. Pt up to bedside commode with assistance several times during the night. See shift assessment for details. Will continue to monitor and report off to dayshift RN.
--- NOTE | 2021-04-30 17:35 | NUR ---
SHIFT SUMMARY PT ALERT AND ORIENTED. PT REPORTS FEELING MORE RELAXED THIS SHIFT THAN PREVIOUS SHIFTS. TRACH PLUGGED THIS AM AND PT HAS TOLERATED 2L NC ALL SHIFT WITH SATS >90%. LS CLEAR. PT HAS HAD COUGH ON AND OFF WITH MINIMAL PRODUCTION. HR HAS BEEN SINUS TACH 100'S THIS EVENING. BP STABLE. PT COMPLAINED OF PAIN TO HER BUTTOCKS AND MEDICATED PER EMAR. PT UP TO RECLINER THIS SHIFT AT TIMES AND UP TO COMMODE MULTIPLE TIMES. PT'S LEGS SHAVED REQUESTED THIS EVENING. PT HAD FAMILY MEMBER AT BEDSIDE THIS AFTERNOON. PRECEDEX INFUSING AT 0.2MCG/KG/HR. WILL CONTINUE TO MONITOR AND REPORT TO ONCOMING RN.
--- NOTE | 2021-05-01 00:28 | NUR ---
ASSUMED CARE AT 1900 PT LAYING IN BED, ALERT/ORIENTED X4 AND USES THE CALL LIGHT APPROPRIATLY; BUTTON CURRENTLY ON TRACH SO PT IS ABLE TO WHISPER TO COMMUNICATE. WEAKNESS NOTED WHEN TRANSFERING BUT ONE PERSON ASSIST NEEDED. AFEBRILE. SPO2 >98% ON 2L NC; DYSPNEA ON EXERTION. HR 100-110; 130'S WITH EXERTION. BP STABLE. G-TUBE IN PLACE AND CLAMPED. PRECEDEX INFUSING AT 0.2MCG/KG/HR. SEE SHIFT ASSESSMENT FOR FULL ASSESSMENT.
--- NOTE | 2021-05-01 06:02 | NUR ---
END OF SHIFT SUMMARY NO ACUTE EVENTS OVERNIGHT AND PT SLEPT MOST OF THE SHIFT. PT ALERT/ORIENTED X4 AND USES CALL LIGHT APPROPRIATLY. WHILE SLEEPING AND AT REST, SPO2 >98% ON 1-2L NC; DURING EXERTION, UP TO 5LNC NEEDED TO MAINTAIN SPO2 >88%. AFEBRILE. HR 100'S. BP STABLE. PEG TUBE CLAMPED. PT USING BSC WITH ONE PERSON ASSIST FOR LINE MANAGMENT AND STABILITY. PRECEEDEX INFUSING AT 0.2MCG/KG/HR. WILL REPORT TO AM RN WHEN AVAILABLE.
--- NOTE | 2021-05-01 10:00 | NUR ---
PRECEDEX DECREASED TO 0.1MCG PER ORDER. CALM AND COOPERATIVE AT THIS TIME.
--- NOTE | 2021-05-01 18:26 | NUR ---
Pt on 3L O2 NC throughout shift. Desaturation with activity. Increasing O2 to 6L NC with activity. Non productive coughing fits with activity, requested tesslan. Pts been out of bed to chair and bedside commode throughout shift. Solid brown BM- bristol 2. Continuing bowel program. Poor PO intake. Pt refusing supplimetnal tube feed, but made greater attempt at PO intake with dinner. BG has been WNL. Continue encouraging activity and PO intake.
--- NOTE | 2021-05-01 21:27 | NUR ---
[facility] @1900 PATIENT IS ALERT AND ORIENTED X4, HAS CONFUSION AND ANXIETY AT TIMES. TRACH CAPPED AND PATIENT ON 3L VIA NC, 02 SATS DROP TO 70% WITH EXERTION. SR-ST 90s-110s. PATIENT TOOK SOME MEDS PO CRUSHED WITH APPLESAUCE AND SOME PER TUBE, TUBE FLUSHED. 1 PERSON ASSIST UP TO BEDSIDE COMMODE.
--- NOTE | 2021-05-02 06:28 | NUR ---
SHIFT SUMMARY PATIENT IS ALERT AND ORIENTED, STILL HAS MOMENTS OF CONFUSION. TRACH REMAINS CAPPED. 02 SATS >93% ON 3-4L WHILE AT REST, 6L REQUIRED WITH ACTIVITY. G-TUBE FLUSHED THROUGH THE NIGHT PATIENT UP TO BEDISDE COMMODE. NO ACUTE CHANGES. CALLS APPROPRIATELY, CALL LIGHT IN REACH.
--- NOTE | 2021-05-02 08:00 | NUR ---
CARE ASSUMPTION PATIENT A/OX4. VSS. SPO2 >90% ON 3L NC. PATIEN DESATS WITH EXCRETION AND O2 VIA NC IS TURNED TO 6L. PATIENT RECOVERS QUICKLY AND ABLE TO TURN BACK DOWN TO 3L NC. TRACH IS CAPPED. PATIENT REPORTS NO CHEST PAIN, PAIN, OR SOB. CALL LIGHT WITHIN REACH. WILL CONTINUE TO MONITOR AND PROVIDE CARE.
--- NOTE | 2021-05-02 12:46 | NUR ---
TRACH OUT MD RICKS IN WITH THIS RN AND REMOVD TRACH AND PUT STERILE GAUZE AND TEGADERM OVER OPENING. PATIENT PROVIDED EDUCATION ABOUT COVERING THE SITE WHEN TO COUGH, LAUGH OR TALK.
--- NOTE | 2021-05-02 13:10 | NUR ---
REPORT TO MED RN THIS RN GAVE REPORT TO MED FLOOR RN. NOMI RN WENT INTO PATIENT ROOMS TO GATHER BELONGINGS FOR TRANSPORT TO MEDICAL FLOOR.
--- NOTE | 2021-05-02 19:30 | NUR ---
Transferred from PCU to room 326. Alert and oriented x3, one person assist with transfer and used bedside commode for voiding. Continue on percocet for pain management, it was effective. Trach site is CDI. Peg tube in placed . Continue on 2 L n/c , no SOB noted . Continue to monitor.
--- NOTE | 2021-05-03 04:59 | NUR ---
ATHLETIC SCOUT CLARIFIED TELEMETRY ORDER W/. PT PREVIOUSLY T/F'D FROM PCU ON 05/01/21 W/O TELEMETRY IN PLACE BUT HAD AN ACTIVE TELE ORDER. BP AND HR REMAIN ELEVATED AND MD INSTRUCTED TO CONTINUE TELEMETRY MONITORING. PCU UNIVERSITY ARCHIVIST MADE AWARE AND WILL COMMENCE AGAIN UPON ARRIVAL.
[2021-05-03 05:20] LABS: BASOPHILS ABSOLUTE AUTO 0.08 K/mm3 (0.00-0.23); BASOPHILS PERCENT AUTO 1 % (0-2); EOSINOPHILS ABSOLUTE AUTO 0.28 K/mm3 (0.00-0.68); EOSINOPHILS PERCENT AUTO 4 % (0-6); Hematocrit 33.6 % (33.0-51.0); Hemoglobin 10.4 g/dL (11.5-16.0); IMMATURE GRAN ABSOLUTE AUTO 0.02 K/mm3 (0.00-0.10); IMMATURE GRAN PERCENT AUTO 0 % (0-1); LYMPHOCYTES ABSOLUTE AUTO 3.83 K/mm3 (0.84-5.20); LYMPHOCYTES PERCENT AUTO 47 % (21-46); MONOCYTES ABSOLUTE AUTO 0.76 K/mm3 (0.16-1.47); MONOCYTES PERCENT AUTO 9 % (4-13); Mean Corpuscular HGB 29.5 pg (26.0-34.0); Mean Corpuscular Volume 96 fL (80-100); Mean Platelet Volume 9.6 fL (9.1-12.4); NEUTROPHILS ABSOLUTE AUTO 3.12 K/mm3 (1.96-9.15); NEUTROPHILS PERCENT AUTO 39 % (41-73); Platelet Count 480 K/mm3 (150-400); RDW Coefficient Variation 15.4 % (11.7-14.2); RDW Standard Deviation 52.7 fL (35.1-46.3); Red Blood Cell Count 3.52 M/mm3 (3.80-5.20); White Blood Cell Count 8.09 K/mm3 (4.00-11.30)
[2021-05-03 05:45] LABS: Albumin, Blood 2.5 g/dL (3.4-5.0); Anion Gap 7 mmol/L (6-16); Blood Urea Nitrogen 8 mg/dL (8-24); CO2, Blood 31 mmol/L (21-32); Calcium, Blood 9.2 mg/dL (8.5-10.1); Chloride, Blood 100 mmol/L (98-108); Creatinine, Blood 0.53 mg/dL (0.40-1.00); Glomerular Filtration Rate >60 (60-); Glucose, Blood 91 mg/dL (70-99); Magnesium, Blood 2.2 mg/dL (1.6-2.4); Phosphorus, Blood 4.2 mg/dL (2.5-4.9); Potassium, Blood 3.9 mmol/L (3.5-5.5); Sodium, Blood 138 mmol/L (136-145)
--- NOTE | 2021-05-03 06:37 | NUR ---
SHIFT SUMMARY ADMITTED FOR COVID+/RESP FAILURE. FULL CODE. TRACH REMOVED. PEG TUB IN PLACE, WE ARE NOT USING IT. TELEMETRY IS BACK IN PLACE THIS SHIFT PT HAS BEEN TRENDING UP W/BP'S AND HR. IV METOPROLOL GIVEN WHEN TELEMETRY BACK IN PLACE, IMPROVEMENT NOTED IN VITALS. SHE IS A STANDBY ASSIST TO B[facility]
--- NOTE | 2021-05-03 20:06 | NUR ---
Alert and oriented x3 , one person assist with ADLS. Used bedside commode for voiding with SBA, trach site CDI. Peg tube in place and should by remove by RHIANNON nino . Declined percocet. on 4-5 L n/c , no sob noted. Possible DC in next Saturday. Continue to monitor.
--- NOTE | 2021-05-04 05:43 | NUR ---
ROLL HAULER SUMMARY PATIENT HAD A GOOD SHIFT, BUT SHE WAS REFUSING MOST OF HER MED. SHE SAID SHE DID NOT NEED THEM FOR NOW AND DOES NOT WANT TO TAKE THEM. WILL CONTINUE MONITORING PT.
--- NOTE | 2021-05-04 18:02 | NUR ---
Patient is alert and oriented x3 , doing well with oxygen titration from 4 to 2 liters , sp02 at 95-6% , no SOB noted. denies any pain , declined percocet for pain management. walked [address] Babb recommended discharge with pegtube and patient make appointment 2-3 weeks post DC. Trach site is [facility]. Pegtube in placed. one person assist with ADLS, used bedside commode with SBA. Continue on telemetry , pacing at 111, Denies any chest , dizziness ,,palpitation. Zofran 4 mg po was given for nausea , it wa effective. continue to monitor
--- NOTE | 2021-05-05 06:06 | NUR ---
PATIENT IS ALERT AND ORIENTED X4. PATIENT WAS AWAKE MAJORITY OF THE NIGHT, UNABLE TO FALL ASLEEP. PATIENT COMPLAINED OF NAUSEA AND VOMITED X4 SMALL AMOUNT OF YELLOW GREENISH FLUID. PATIENT WAS MEDICATED WITH ZOFRAN X2 PER DOCTOR'S ORDER FOR NAESUEA. PATIENT HR WAS NOTED TO BE ELEVATED UPTO 125 AND PATIENT RECEIVED LOPRESOR 5MG PRN AND HR REDUCED TO 107. PATIENT REFUSED HER PERCOCET AND QUETIAPIN, PATIENT STATED "I DON'T WANT IT". PATIENT DENIES PAIN OR SOB. WILL CONTINUE TO MONITOR.
[2021-05-05 08:33] LABS: Anion Gap 7 mmol/L (6-16); Blood Urea Nitrogen 4 mg/dL (8-24); Bun/Creatinine Ratio 7.7 (12.0-20.0); CO2, Blood 31 mmol/L (21-32); Calcium, Blood 9.2 mg/dL (8.5-10.1); Chloride, Blood 98 mmol/L (98-108); Creatinine, Blood 0.52 mg/dL (0.40-1.00); Glomerular Filtration Rate >60 (60-); Glucose, Blood 118 mg/dL (70-99); Potassium, Blood 3.8 mmol/L (3.5-5.5); Sodium, Blood 136 mmol/L (136-145)
[2021-05-05] MEDS ORDERED: DOCU100 PO (13:19)
[2021-05-05] MEDS ORDERED: Tessalon200 MG PO (13:21)
[2021-05-05] MEDS ORDERED: Percocet 5-3251 EACH PO (13:22)
[2021-05-05] MEDS ORDERED: INSULANPEN SC (13:22)
[2021-05-05] MEDS ORDERED: FAMO20 PO (13:22)
[2021-05-05] MEDS ORDERED: ONDA4ODT MM (13:23)
[2021-05-05] MEDS ORDERED: METO25 PO (13:24)
[2021-05-05] MEDS ORDERED: METF500 PO (13:24)
[2021-05-05] MEDS ORDERED: QUET200 PO (13:25)
[2021-05-05] MEDS ORDERED: LACT PO (13:26)
--- NOTE | 2021-05-05 15:56 | NUR ---
DISCHARGE PT DCED AT 1533. PT & [id number], LOYD EDUCATED ON FOLLOW UP APPOINTMENTS, NEW MEDS, AND CARE TO TRACH AND PEG TUBE. BOTH DENIED FURTHER QUESTIONS AT THE TIME. PICC LINE DCED BY HAND KNITTER. PT MEDICATED FOR NAUSEA ONCE THIS SHIFT AND DENIES PAIN T/O SHIFT.
== END 2021-05-05 15:33 | disposition home health service (06) | DRG 4 ==
LOC: ER 10:28 → ERHOLD 12:44 → PCU 12:44 → ICUW 12:44 → PCU 14:05 → ICUW 03-17 16:49 → PCU 04-10 12:31 → MEDS 05-02 13:34
PROVIDERS: Family Medicine; Internal Medicine; Internal Medicine Critical Care Medicine; Pharmacist; Physician Assistant; Student in an Organized Health Care Education/Training Program; ADMIT Internal Medicine
PROC: 5A0945Z Assistance with Respiratory Ventilation, 24-96 Consecutive Hours (ICD-10-PCS; 2021-03-11)
PROC: 8E0ZXY6 Isolation (ICD-10-PCS; 2021-03-12)
PROC: 3E0333Z Introduction of Anti-inflammatory into Peripheral Vein, Percutaneous Approach (ICD-10-PCS; 2021-03-12)
PROC: XW033E5 Introduction of Remdesivir Anti-infective into Peripheral Vein, Percutaneous Approach, New Technology Group 5 (ICD-10-PCS; 2021-03-12)
PROC: 5A1955Z Respiratory Ventilation, Greater than 96 Consecutive Hours (ICD-10-PCS; 2021-03-18)
PROC: 0BH18EZ Insertion of Endotracheal Airway into Trachea, Via Natural or Artificial Opening Endoscopic (ICD-10-PCS; 2021-03-18)
PROC: 02HV33Z Insertion of Infusion Device into Superior Vena Cava, Percutaneous Approach (ICD-10-PCS; 2021-03-30)
PROC: B548ZZA Ultrasonography of Superior Vena Cava, Guidance (ICD-10-PCS; 2021-03-30)
PROC: 0BH18EZ Insertion of Endotracheal Airway into Trachea, Via Natural or Artificial Opening Endoscopic (ICD-10-PCS; 2021-04-01)
PROC: 0B113F4 Bypass Trachea to Cutaneous with Tracheostomy Device, Percutaneous Approach (ICD-10-PCS; principal; 2021-04-04)
PROC: 0BJ08ZZ Inspection of Tracheobronchial Tree, Via Natural or Artificial Opening Endoscopic (ICD-10-PCS; 2021-04-04)
PROC: 0DH63UZ Insertion of Feeding Device into Stomach, Percutaneous Approach (ICD-10-PCS; 2021-04-18)
DX: U07.1 COVID-19 (principal); J12.82 Pneumonia due to coronavirus disease 2019; G92.9 Unspecified toxic encephalopathy; J18.9 Pneumonia, unspecified organism; J96.01 Acute respiratory failure with hypoxia; J93.9 Pneumothorax, unspecified; F05 Delirium due to known physiological condition; J98.2 Interstitial emphysema; F41.9 Anxiety disorder, unspecified; T38.0X5A Adverse effect of glucocorticoids and synthetic analogues, initial encounter; B95.61 Methicillin susceptible Staphylococcus aureus infection as the cause of diseases classified elsewhere; I10 Essential (primary) hypertension; B96.1 Klebsiella pneumoniae [K. pneumoniae] as the cause of diseases classified elsewhere; E78.5 Hyperlipidemia, unspecified; Z87.891 Personal history of nicotine dependence; Z88.8 Allergy status to other drugs, medicaments and biological substances; Z79.899 Other long term (current) drug therapy; E11.65 Type 2 diabetes mellitus with hyperglycemia; E66.9 Obesity, unspecified; F32.9 Major depressive disorder, single episode, unspecified; I95.9 Hypotension, unspecified; D75.839 Thrombocytosis, unspecified
CPT/HCPCS: 31500; 31502; 31720; 36415; 36569; 36600; 51702; 51703; 71045; 71250; 71260; 80048; 80053; 80069; 80202; 81001; 81003; 82330; 82728; 82803; 82947; 83036; 83605; 83615; 83735; 84100; 84484; 85025; 85027; 85379; 86140; 87040; 87070; 87077; 87086; 87147; 87186; 87205; 87305; 88108; 88312; 92507; 92526; 92597-GN; 92610; 93005; 93010; 93970; 94002; 94003; 94640; 94660; 94761; 94762; 96374; 97110; 97116; 97162; 97166; 97530; 97535; 99285-25; A9270; C1751; C9113; J0295; J0330; J0360; J0692; J0696; J1100; J1200; J1630; J1650; J1815; J1940; J2001; J2060; J2250; J2405; J2704; J2765; J2920; J2930; J2997; J3010; J3370; J7030; J7040; J7050; J7060; J7120; J7509; J7512; P9046; Q9967

== ENCOUNTER 2023-05-14 08:11 | Day surgery (SDC) | payer OTHER ==
[~2023-05-14] VITALS: Ht 157.5 cm; Wt 74.9 kg
[~2023-05-14 08:11] MED LIST: BUPR150ER PO; DOCU100 PO; FAMO20 PO; FENOFIBRATE145 MG PO; INSULANPEN SC; LACT PO; LISI20 PO; METF500 PO; METO25 PO; ONDA4ODT MM; PROMETHAZINE-C473 ML; Percocet 5-3251 EACH PO; Prednisone10 MG PO; QUET200 PO; Tessalon200 MG PO; Ventolin/Prove6.7 GM INH
[2023-05-14] MEDS ORDERED: FENO145 (08:33)
[2023-05-14 09:37] VITALS: BP 113/77
== END 2023-05-14 09:56 | disposition home or self-care (01) ==
LOC: ORSCSDS 08:11
PROVIDERS: Internal Medicine Gastroenterology
PROC: 0DBN8ZX Excision of Sigmoid Colon, Via Natural or Artificial Opening Endoscopic, Diagnostic (ICD-10-PCS; principal; 2023-05-14 09:30)
DX: Z12.11 Encounter for screening for malignant neoplasm of colon (principal); K63.5 Polyp of colon; Z86.16 Personal history of COVID-19; R00.0 Tachycardia, unspecified; F41.9 Anxiety disorder, unspecified; Z68.31 Body mass index [BMI] 31.0-31.9, adult; Z79.899 Other long term (current) drug therapy
CPT/HCPCS: 88305; A9270; J2250; J2704; J7120